=== PATIENT | female | born 1945 | race Caucasian/White ===

== ENCOUNTER 2017-12-07 14:20 | Observation (INO) | payer MEDICARE, BC ==
[2017-12-07 15:23] LABS: Troponin I 0.012 ng/mL (< 0.028)
[2017-12-07] MEDS ORDERED: Ondansetron ODT 4 MG TAB ONE (15:50)
[2017-12-07 18:07] LABS: Troponin I 0.014 ng/mL (< 0.028)
[2017-12-07 19:36] VITALS: BMI 36.8
[2017-12-07] MEDS ORDERED: Acetaminophen 650 MG Suppository PR PRN (20:46)
[2017-12-07] MEDS ORDERED: Bisacodyl 5 MG TAB PO PRN (20:46)
[2017-12-07] MEDS ORDERED: Ondansetron ODT 4 MG TAB PO PRN (20:46)
[2017-12-07] MEDS ORDERED: Ondansetron HCl/PF 4 MG/2 ML Vial IVP PRN (20:46)
[2017-12-07 20:56] LABS: Troponin I Less than 0.010 ng/mL (< 0.028)
[2017-12-07] MEDS: Apixaban 5 MG TAB PO SCH (21:14)
[2017-12-07] MEDS: Famotidine 20 MG TAB PO SCH (21:14)
[2017-12-07] MEDS: Docusate 100 MG CAP PO SCH (21:14)
[2017-12-07] MEDS: Propafenone HCl 150 MG TAB PO SCH (21:15)
[2017-12-07] MEDS: Calcium Carbonate 500 MG ChewTAB PO PRN (21:16)
[2017-12-07] MEDS ORDERED: Rosuvastatin 10 MG TAB PO SCH (21:30)
--- NOTE | 2017-12-08 04:49 | HP ---
PRIMARY CARE PHYSICIAN: Dr. Barriga. CHIEF COMPLAINT: Chest pain. HISTORY OF PRESENT ILLNESS: This is a 72-year-old white female with a known history of coronary lorna ry disease and previous atrial fibrillation, sick sinus, now with pacemaker, on anticoagulation. She reports that she has seen Dr. Carter as an outpatient and has been told that she probably is going to need a catheterization at some point last one was 3 years ago. She has never had any stents or a CABG done. She does intermittently have some chest pain, which is usually mild. 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 When she got there thi s morning, got out of the truck to go into her work, she started feeling a little nauseous and having a little bit of chest pain. While she was in a meeting there, she developed severe chest pain, subs ternal, squeezing in nature and associated with nausea and was told she looked ashen by her colleague . Her blood pressure was also elevated in the 170s to 180s, so she called an ambulance. She did hav e some minimal vomiting in the ambulance, but had not really eaten much take as of the nausea anyway and the pain came and went, was improved some with morphine, but still fluctuating and eventually now settled down. She did not have any more chest pain at this time. The patient was seen in [facility] Emergency Room, cardiac markers negative x3 and just a paced rhythm on her EKG without any eviden ce of ST segment elevation, so she was transferred over here for observation and Cardiology consultat [facility]. PAST MEDICAL HISTORY: 1. Hypothyroidism. 2. Coronary artery disease with a 1-vessel block at 60% and 3 vessels at 20%, last done that about 3 -3.5 years ago. 3. Diabetes mellitus, type 2, resolved after she had a gastric sleeve placed, now with intermittent hypoglycemia from a dumping syndrome. 4. Dyslipidemia. 5. Hypertension. 6. Hypothyroidism. PAST SURGICAL HISTORY: 1. Bilateral carpal tunnel surgery. 2. Cholecystectomy. 3. section. 4. Hernia repair. 5. Right shoulder repair. 6. Tonsillectomy. 7. Gastric sleeve surgery. 8. Pacemaker placed on last year. PAST PSYCHIATRIC HISTORY: Depression. SOCIAL HISTORY: No tobacco, alcohol, or illicit drug use. 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 FAMILY HISTORY: Significant for myocardial infarctions in both her parents at young ages. ALLERGIES: 1. KEFLEX. 2. CIPRO. 3. CODEINE. 4. PENICILLIN. 5. TETANUS VACCINE. CURRENT MEDICATIONS: 1. Eliquis 5 mg twice a day. 2. Cartia XT 180 mg daily. 3. Synthroid 125 mcg daily. 4. Rythmol 150 mg 3 times a day. 5. Crestor 10 mg daily. 6. Sertraline 50 mg at night. 7. Diovan 160 mg daily. REVIEW OF SYSTEMS: Constitutional: No fevers, no chills. Eyes: No double vision or blurred vision . ENT: No congestion, drainage or sore throat. Cardiovascular: See HPI. Pulmonary: She has had a little bit of coughing that is nonproductive over the last day and had some wheezing this morning w ith the nausea. No shortness of breath. Gastrointestinal: See HPI. No abdominal pain, no diarrhea or constipation. Genitourinary: No dysuria or hematuria. Musculoskeletal: No muscle aches or nico nt pains. Skin: No rashes or lesions noted. Neurologic: No numbness, tingling or focal weakness. Psychiatric: She has had some depression and stress from her job, working 12 hour shifts, 6 days a week. PHYSICAL EXAMINATION: VITAL SIGNS: Blood pressure 165/79, pulse 60, respirations 12, O2 sat 94% on room air, temperature 9 7.9. GENERAL: This is a well-developed, obese white female, in no acute distress. HEENT: Pupils are equal, round, and reactive to light. Oropharynx is clear without lesions, erythem a or exudate. NECK: Supple, no lymphadenopathy, no thyroid nodules or enlargement, no JVD. HEART: Regular rate and rhythm, no murmurs, rubs or gallops. LUNGS: Clear to auscultation bilaterally, no wheezes, crackles or rhonchi. ABDOMEN: Soft, nontender to palpation, normoactive bowel sounds, no hepatosplenomegaly or other mass es. EXTREMITIES: No clubbing, cyanosis or edema. SKIN: No rashes or lesions. NEUROLOGIC: Intact strength in all extremities and no facial droop. LABORATORY DATA AND IMAGING: CBC within normal limits. Coagulation profile with an INR of 1.4. Com plete metabolic panel within normal limits. Cardiac marker set negative x3. Brain natriuretic pepti de 135, which is up from when it was checked 4 years ago at 54. Chest x-ray: I did review the chest x-ray done in the emergency room along with the radiologist's report, it does show some cardiomegaly with stable from previous, but no acute findings, no infiltrates, no evidence of congestive failure. EKG: I did review the EKG done in the emergency room, it does show a paced rhythm without any evid ence of ST segment changes. ASSESSMENT AND PLAN: 1. Chest pain. The patient has known coronary artery disease, no evidence of acute myocardial infar ction at this time with negative troponins and her chest pain is improved, suspicious for angina. We will observe the patient on telemetry overnight and then we will consult Dr. Carter in the morning . We will make patient n.p.o. after midnight in case they decide to cath her tomorrow. 2. Known coronary artery disease. We will continue home medications. 3. History of atrial fibrillation. We will continue antiarrhythmics and anticoagulants. 4. Hypoglycemic episodes. We will check blood sugars q.a.c. and at bedtime and especially when she is n.p.o. tomorrow. 5. Gastrointestinal prophylaxis. Put the patient on Pepcid twice a day. 6. Deep venous thrombosis prophylaxis. We will continue patient's Xarelto. 7. Code status. I did discuss with the patient. She is a FULL CODE. Should she be incapacitated, her would be her medical decision maker, his name is Reji Ang.
[2017-12-08] MEDS: Levothyroxine Sodium 125 MCG TAB PO SCH (05:07)
[2017-12-08 06:06] LABS: #Eosinphils 0.1 thou/uL (0.0-0.7); #Lymphocytes 1.3 thou/uL (1.20-3.40); #Monocytes 0.6 thou/uL (0.11-0.59); #Neutrophils 3.5 thou/uL (1.40-6.50); %Basophils 0.5 % (0.0-1.0); %Eosinophils 1.7 % (0.0-10.0); %Lymphocytes 23.4 % (21.0-51.0); %Neutrophils 63.4 % (42.0-75.0); Hemoglobin 10.6 g/dL (12.0-16.0); Mean Corpuscular HGB CONC 31.7 g/dL (32.0-36.0); Mean Corpuscular Hemoglobin 28.4 pg (27.0-31.0); Mean Corpuscular Volume 89.6 fL (78.0-98.0); Mean Platelet Volume 8.1 fL (7.4-10.4); Platelet Count 170 thou/uL (130-400); RBC Distribution Width 12.4 % (11.5-14.5); Red Blood Cell (RBC) Count 3.74 mill/uL (4.20-5.40); White Blood Cell (WBC) Count 5.6 thou/uL (4.8-10.8)
[2017-12-08 06:21] LABS: Anion Gap 11 mmol/L (10-20); BUN (Urea Nitrogen) 11 mg/dL (9.8-20.1); Calc. Creatinine Clearance 120 mL/min (70-130); Carbon Dioxide 28 mmol/L (23-31); Chloride 108 mmol/L (98-107); Estimated GFR-MDRD Greater than 90; Glucose 96 mg/dL (80-115); Potassium 3.6 mmol/L (3.5-5.1); Sodium 143 mmol/L (136-145)
[2017-12-08] MEDS: Famotidine 20 MG TAB PO SCH ×2 (08:00→20:28)
[2017-12-08] MEDS: Propafenone HCl 150 MG TAB PO SCH ×3 (08:00→20:28)
[2017-12-08] MEDS: Acetaminophen 325 MG TAB PO PRN ×2 (08:00→13:30)
[2017-12-08] MEDS: Docusate 100 MG CAP PO SCH ×2 (08:00→20:28)
[2017-12-08] MEDS: Apixaban 5 MG TAB PO SCH ×2 (08:00→20:28)
[2017-12-08] MEDS: Valsartan 80 MG TAB PO SCH (08:00)
[2017-12-08] MEDS ORDERED: Rosuvastatin 10 MG TAB PO SCH ×2 (09:00→21:00)
[2017-12-08 10:59] LABS: Hemoglobin 10.4 g/dL (12.0-16.0); Platelet Count 161 thou/uL (130-400)
[2017-12-08 11:21] LABS: Calc. Creatinine Clearance 120 mL/min (70-130); Estimated GFR-MDRD Greater than 90
--- NOTE | 2017-12-08 16:20 | PDOC.PN ---
- Subjective Encounter Start Date: 12/08/17 Encounter Start Time: 16:19 Subjective: feels well but had one more episode of chest tightness this morning -: a/w nausea -: cough & left shoulder pain on and off for few months w exertion - Objective Resuscitation Status: Resuscitation Status FULL:Full Resuscitation MAR Reviewed: Yes Vital Signs & Weight: Vital Signs (12 hours) Temp Pulse Resp BP Pulse Ox 12/08/17 15:38 98.5 F 60 16 158/74 H 97 12/08/17 11:45 98.7 F 62 20 157/70 H 97 12/08/17 07:45 98.7 F 62 20 12/08/17 07:41 98.3 F 69 20 156/75 H 98 Weight Weight 188 lb 14.4 oz I&O: 12/07/17 12/08/17 12/09/17 06:59 06:59 06:59 Intake Total 360 Balance 360 Result Diagrams: 12/08/17 10:22 12/08/17 10:22 Additional Labs: Accuchecks 12/08/17 12/08/17 12/07/17 11:51 05:11 20:39 POC Glucose 81 97 119 H Laboratory Tests 12/07/17 12/07/17 12/07/17 14:49 17:32 20:25 Troponin I 0.012 0.014 Less than 0.010 Phys Exam - Physical Examination Constitutional: NAD HEENT: PERRLA, moist MMs, sclera anicteric, oral pharynx no lesions Neck: no nodes, no JVD, supple, full ROM Respiratory: no wheezing, no rales, no rhonchi, clear to auscultation bilateral Cardiovascular: RRR, no significant murmur, no rub Gastrointestinal: soft, non-tender, no distention, positive bowel sounds Musculoskeletal: no edema, pulses present Neurological: non-focal, normal sensation, moves all 4 limbs Psychiatric: normal affect, A&O x 3 Skin: no rash Dx/Plan (1) Chest pain Code(s): R07.9 - CHEST PAIN, UNSPECIFIED Status: Acute (2) Chronic atrial fibrillation Code(s): I48.2 - CHRONIC ATRIAL FIBRILLATION Status: Chronic Comment: on eliquis and Rythmol (3) HTN (hypertension) Code(s): I10 - ESSENTIAL (PRIMARY) HYPERTENSION Status: Chronic (4) Hypothyroidism Code(s): E03.9 - HYPOTHYROIDISM, UNSPECIFIED Status: Chronic (5) CAD (coronary artery disease) Code(s): I25.10 - ATHSCL HEART DISEASE OF [place] CORONARY ARTERY W/O ANG PCTRS Status: Chronic (6) Diabetes mellitus Code(s): E11.9 - TYPE 2 DIABETES MELLITUS WITHOUT COMPLICATIONS Status: Chronic - Plan out of bed/ambulate, DVT proph w/SCDs gerry angina. H/o 60% stenosis RCA in 2013.gerry will need Cath -: ECHo pending -: add low dose nitrates for angina as Bp also high -: home meds as below. follow cardiology recs -: Hemodynamically stable.check BNP * . Review of Systems - Review of Systems Constitutional: negative: fever, chills, sweats, weakness, malaise, other Respiratory: negative: Cough, Dry, Shortness of Breath, Hemoptysis, SOB with Excertion, Pleuritic Pain, Sputum, Wheezing Cardiovascular: chest pain. negative: palpitations, orthopnea, paroxysmal nocturnal dyspnea, edema, light headedness, other Gastrointestinal: negative: Nausea, Vomiting, Abdominal Pain, Diarrhea, Constipation, Melena, Hematochezia, Other Genitourinary: negative: Dysuria, Frequency, Incontinence, Hematuria, Retention , Other Musculoskeletal: negative: Neck Pain, Shoulder Pain, Arm Pain, Back Pain, Hand Pain, Leg Pain, Foot Pain, Other Skin: negative: Rash, Lesions, Zheng, Bruising, Other Neurological: negative: Weakness, Numbness, Incoordination, Change in Speech, Confusion, Seizures, Other - Medications/Allergies Allergies/Adverse Reactions: Allergies Allergy/AdvReac Type Severity Reaction Status Date / Time cephalexin monohydrate Allergy RED Verified 07/20/13 10:35 [From Keflex] ciprofloxacin [From Cipro] Allergy Hives Verified 03/08/16 01:22 ciprofloxacin HCl Allergy Verified 03/08/16 01:22 [From Cipro] codeine Allergy Nausea Verified 07/20/13 10:35 Penicillins Allergy Hives Verified 07/20/13 10:35 Tetanus Vaccines and Toxoid Allergy SWELLING Verified 07/20/13 10:35 [Tetanus Vaccines & Toxoid] OF ARM Medications: Current Medications Acetaminophen (Tylenol) 650 mg PO Q4H PRN PRN Reason: Headache/Fever or Pain Last Admin: 06/21/18 13:30 Dose: 650 mg Acetaminophen (Tylenol) 650 mg DE Q4H PRN PRN Reason: Headache/Fever or Pain Apixaban (Eliquis) 5 mg PO BID [facility] Last Admin: 12/08/17 08:00 Dose: 5 mg Bisacodyl (Dulcolax) 10 mg PO DAILYPRN PRN PRN Reason: Constipation Calcium Carbonate (Tums) 500 mg PO Q4H PRN PRN Reason: INDIGESTION Last Admin: 12/07/17 21:16 Dose: 500 mg Diltiazem HCl (Cardizem Cd) 180 mg PO DAILY [facility] Last Admin: 12/08/17 07:59 Dose: 180 mg Docusate Sodium (Colace) 100 mg PO BID [facility] Last Admin: 12/08/17 08:00 Dose: 100 mg Famotidine (Pepcid) 20 mg PO BID [facility] Last Admin: 12/08/17 08:00 Dose: 20 mg Levothyroxine Sodium (Synthroid) 125 mcg PO 0600 [facility] Last Admin: 12/08/17 05:07 Dose: 125 mcg Ondansetron HCl (Zofran Odt) 4 mg PO Q6H PRN PRN Reason: Nausea/Vomiting Last Admin: 12/07/17 21:16 Dose: 4 mg Ondansetron HCl (Zofran) 4 mg IVP Q6H PRN PRN Reason: Nausea/Vomiting Propafenone HCl (Rythmol) 150 mg PO TID [facility] Last Admin: 12/08/17 15:52 Dose: 150 mg Rosuvastatin Calcium (Crestor) 10 mg PO [facility] Sertraline HCl (Zoloft) 50 mg PO HS [facility] Last Admin: 12/07/17 21:15 Dose: 50 mg Valsartan (Diovan) 160 mg PO DAILY [facility] Last Admin: 12/08/17 08:00 Dose: 160 mg
[2017-12-08] MEDS ORDERED: Isosorbide Mononitrate 20 MG TAB PO SCH (16:45)
[2017-12-08] MEDS: Calcium Carbonate 500 MG ChewTAB PO PRN (18:05)
--- NOTE | 2017-12-09 04:59 | CON ---
DATE OF CONSULTATION: 12/08/2017 HISTORY OF PRESENT ILLNESS: Karlee Ang is a 72-year-old white female that initially evaluated in 04/2014. At that time, she was referred for preoperative evaluation for gastric sleeve surgery by Dr. Amaya. She complained of some right chest pressure that would occur with pulling a wagon with her right arm. There was tender to touch. She underwent Lexiscan Cardiolite testing, which revealed a proximal to distal anterior and apical area of ischemia. She underwent cardiac catheterization which revealed normal left ventricular function with ejection fraction of 55%-60%. The proximal LAD was calcified. There was a 20% mid to distal LAD, 20% first diagonal and 20% proximal circumflex. Right coronary artery had a 60% proximal stenosis and a 20 % mid stenosis. It was felt best to continue to treat her medically. She underwent gastric sleeve surgery without incident. She has continued to be followed in the office since that time. She walked up to 1 mile per day without problem. She was admitted in 02/2016 with feeling of very rapid heartbeat. She also had chest pressure with that. Chest pressure lasted 18 hours continuously and seemed to stop when she converted to sinus rhythm. Despite 18 hours of continuous chest pain, her cardiac enzymes were unremarkable. When she converted to sinus rhythm, she was asymptomatic. She was given intravenous metoprolol, digoxin 0.125. She also was placed on Lovenox 90 mg b.i.d. Echocardiogram was technically difficult. Ejection fraction was 55%-60%, aortic valvular fibrosis, moderate mitral regurgitation, mild to moderate aortic insufficiency and mild tricuspid regurgitation. She was placed on Eliquis 5 mg b.i.d. and Multaq 400 b.i.d. She could not afford the Multaq and was eventually switched to propafenone 150 t.i.d. Since then she has not had any atrial fibrillation on interrogation of her pacemaker. She states that she has been under a lot of stress recently. 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 Blood pressure was 170s to 180s and ambulance was called. Since that pain started 28 hours ago, she states it is still present and has never resolved. Cardiac enzymes have been unremarkable. PAST MEDICAL HISTORY: Hypertension, diabetes (which apparently resolved after gastric sleeve surgery), hypercholesterolemia, hypothyroidism, coronary artery disease. OPERATIONS: Bilateral carpal tunnel surgery, cholecystectomy, gastric sleeve, C -section, hernia repair, right shoulder repair, tonsillectomy, I&D of leg cellulitis, lithotripsy and thyroidectomy, and pacemaker placement, pacemaker placement in [place]. MEDICATIONS: Eliquis 5 mg b.i.d., Cartia 120 mg daily, Synthroid 125 mcg daily , propafenone 150 t.i.d., Crestor 10 daily, sertraline 50 daily, Diovan 160 daily. ALLERGIES: KEFLEX, CIPRO, CODEINE, PENICILLIN, TETANUS and possible cough with [employer]. SOCIAL HISTORY: She does not smoke or drink. FAMILY HISTORY: Significant for myocardial infarction. REVIEW OF SYSTEMS: Twelve-point review of systems otherwise unremarkable. PHYSICAL EXAMINATION: VITAL SIGNS: Blood pressure 123/58, pulse of 60. HEENT: PERRL. NECK: Supple. CHEST: Clear. CARDIAC: S1, S2 normal, without any S3, S4. There is a 2/6 systolic ejection murmur. Carotid upstrokes normal without bruits. ABDOMEN: Normal bowel sounds, without tenderness, organomegaly. EXTREMITIES: Revealed no edema. MUSCULOSKELETAL: Revealed palpable chest wall tenderness that reproduces her pain. LABORATORY DATA: EKG reveals atrial sensing and ventricular pacing. Cardiac enzymes are totally normal. Hemoglobin 10.4, hematocrit 31.5. INR 1.4. Sodium 143, potassium 3.6, chloride 108, carbon dioxide 28, BUN 11, creatinine 0.59. BNP 157.8. IMPRESSION: 1. Probable chest wall pain with palpable tenderness, pain lasting 28 hours and negative cardiac enzymes. 2. History of coronary artery disease with 60% right coronary artery lesion. 3. Status post pacemaker placement. 4. History of atrial fibrillation, currently on Eliquis and propafenone. 5. Hypertension. 6. Hypercholesterolemia. 7. Diabetes, diet controlled. 8. Hypothyroidism. 9. Status post gastric sleeve. PLAN: Ms. Ang will undergo Lexiscan Cardiolite testing to further reevaluate her cardiac status. If this is normal, then she may be discharged. [facility]
[2017-12-09] MEDS: Levothyroxine Sodium 125 MCG TAB PO SCH (05:18)
[2017-12-09] MEDS ORDERED: Isosorbide Mononitrate 20 MG TAB PO SCH (09:00)
[2017-12-09] MEDS: Famotidine 20 MG TAB PO SCH (11:58)
[2017-12-09] MEDS: Valsartan 80 MG TAB PO SCH (11:58)
[2017-12-09] MEDS: Apixaban 5 MG TAB PO SCH (11:59)
[2017-12-09] MEDS: Docusate 100 MG CAP PO SCH (11:59)
[2017-12-09] MEDS: Propafenone HCl 150 MG TAB PO SCH ×2 (11:59→16:22)
[2017-12-09] MEDS ORDERED: Regadenoson 0.4 MG/5 ML SYRINGE ONE (12:11)
--- NOTE | 2017-12-09 12:28 | NM ---
MYOCARDIAL PERFUSION EVALUATION: History: Chest pain. Radiopharmaceutical: 370 mCi Technetium 99M Sestamibi IV with stress and 9 mCi Technetium 99M Sestami bi with rest. FINDINGS: There is a mild sized region of mild to moderate reduced activity involving the basal apical inferior wall and septum seen predominately on the rest images likely related to diaphragmatic attenuation. T here is left ventricular dilatation seen on both the rest and stress and images. There is normal wall motion and thickening with an LVF of 60%. IMPRESSION: Probably normal myocardial perfusion evaluation. 2. No definite scintigraphic evidence of reversible myocardial ischemia. 3. Moderate sized right of mildly reduced activity involving the base of the apical inferior wall and apex, seen predominately on the rest images likely related to soft tissue attenuation. 4. Left ventricular dilatation with an LVEF estimated at 60%. POS: JUAN DANIEL
--- NOTE | 2017-12-09 14:39 | PDOC.PN ---
- Subjective Encounter Start Date: 12/09/17 Encounter Start Time: 14:36 Subjective: feels better. no more episodes of chest pain.no SOB - Objective Resuscitation Status: Resuscitation Status FULL:Full Resuscitation MAR Reviewed: Yes Vital Signs & Weight: Vital Signs (12 hours) Temp Pulse Resp BP BP Pulse Ox 12/09/17 11:57 98.4 F 65 16 189/80 H 97 12/09/17 08:00 98.1 F 65 18 12/09/17 07:54 98.1 F 65 18 128/64 96 12/09/17 05:18 97.8 F 60 16 146/68 H 97 Weight Weight 188 lb 14.4 oz I&O: 12/08/17 12/09/17 12/10/17 06:59 06:59 06:59 Intake Total 360 1320 Balance 360 1320 Result Diagrams: 12/08/17 10:22 12/08/17 10:22 Additional Labs: Accuchecks 12/09/17 12/09/17 12/08/17 12:03 05:22 20:34 POC Glucose 93 92 108 12/08/17 16:48 POC Glucose 80 Laboratory Tests 12/08/17 16:43 B-Natriuretic Peptide 157.8 H labs reviewed Radiology Reviewed by me: Yes (NM stress test-no reversible ischemia.ECHO- Diastolic dysfunction) EKG Reviewed by me: Yes Phys Exam - Physical Examination HEENT: PERRLA, moist MMs, sclera anicteric, oral pharynx no lesions Neck: no nodes, no JVD, supple, full ROM Respiratory: no wheezing, no rales, no rhonchi, clear to auscultation bilateral Cardiovascular: RRR, no significant murmur, no rub Gastrointestinal: soft, non-tender, no distention, positive bowel sounds Musculoskeletal: no edema, pulses present Neurological: non-focal, normal sensation, moves all 4 limbs Psychiatric: normal affect, A&O x 3 Skin: no rash Dx/Plan (1) Chest pain Code(s): R07.9 - CHEST PAIN, UNSPECIFIED Status: Resolved (2) Chronic atrial fibrillation Code(s): I48.2 - CHRONIC ATRIAL FIBRILLATION Status: Chronic Comment: on eliquis and Rythmol (3) HTN (hypertension) Code(s): I10 - ESSENTIAL (PRIMARY) HYPERTENSION Status: Chronic (4) Hypothyroidism Code(s): E03.9 - HYPOTHYROIDISM, UNSPECIFIED Status: Chronic (5) CAD (coronary artery disease) Code(s): I25.10 - ATHSCL HEART DISEASE OF [place] CORONARY ARTERY W/O ANG PCTRS Status: Chronic (6) Diabetes mellitus Code(s): E11.9 - TYPE 2 DIABETES MELLITUS WITHOUT COMPLICATIONS Status: Chronic (7) Moderate aortic regurgitation Code(s): I35.1 - NONRHEUMATIC AORTIC (VALVE) INSUFFICIENCY Status: Chronic (8) Moderate tricuspid regurgitation Code(s): I07.1 - RHEUMATIC TRICUSPID INSUFFICIENCY Status: Chronic (9) Diastolic dysfunction with chronic heart failure Code(s): I50.32 - CHRONIC DIASTOLIC (CONGESTIVE) HEART FAILURE Status: Chronic Comment: no acute exacerbation.per ECHO - Plan DVT proph w/SCDs cont home meds.BP lower side. -: Imdur added yesterday for possible angina.may need to reduce Valsartan -: no evidence of ACS. -: will need Cath in near future.f/u w cardiology -: Drake VERAS later today if cleared by cardiology * . Review of Systems - Review of Systems Constitutional: negative: fever, chills, sweats, weakness, malaise, other ENT: negative: Ear Pain, Ear Discharge, Nose Pain, Nose Discharge, Nose Congestion, Mouth Pain, Mouth Swelling, Throat Pain, Throat Swelling, Other Respiratory: negative: Cough, Dry, Shortness of Breath, Hemoptysis, SOB with Excertion, Pleuritic Pain, Sputum, Wheezing Cardiovascular: negative: chest pain, palpitations, orthopnea, paroxysmal nocturnal dyspnea, edema, light headedness, other Gastrointestinal: negative: Nausea, Vomiting, Abdominal Pain, Diarrhea, Constipation, Melena, Hematochezia, Other Genitourinary: negative: Dysuria, Frequency, Incontinence, Hematuria, Retention , Other Musculoskeletal: negative: Neck Pain, Shoulder Pain, Arm Pain, Back Pain, Hand Pain, Leg Pain, Foot Pain, Other Skin: negative: Rash, Lesions, Zheng, Bruising, Other Neurological: negative: Weakness, Numbness, Incoordination, Change in Speech, Confusion, Seizures, Other - Medications/Allergies Allergies/Adverse Reactions: Allergies Allergy/AdvReac Type Severity Reaction Status Date / Time cephalexin monohydrate Allergy RED Verified 07/20/13 10:35 [From Keflex] ciprofloxacin [From Cipro] Allergy Hives Verified 03/08/16 01:22 ciprofloxacin HCl Allergy Verified 03/08/16 01:22 [From Cipro] codeine Allergy Nausea Verified 07/20/13 10:35 Penicillins Allergy Hives Verified 07/20/13 10:35 Tetanus Vaccines and Toxoid Allergy SWELLING Verified 07/20/13 10:35 [Tetanus Vaccines & Toxoid] OF ARM Medications: Current Medications Acetaminophen (Tylenol) 650 mg PO Q4H PRN PRN Reason: Headache/Fever or Pain Last Admin: 12/08/17 13:30 Dose: 650 mg Acetaminophen (Tylenol) 650 mg ID Q4H PRN PRN Reason: Headache/Fever or Pain Apixaban (Eliquis) 5 mg PO BID [facility] Last Admin: 12/09/17 11:59 Dose: 5 mg Bisacodyl (Dulcolax) 10 mg PO DAILYPRN PRN PRN Reason: Constipation Calcium Carbonate (Tums) 500 mg PO Q4H PRN PRN Reason: INDIGESTION Last Admin: 12/08/17 18:05 Dose: 500 mg Diltiazem HCl (Cardizem Cd) 180 mg PO DAILY [facility] Last Admin: 12/09/17 11:58 Dose: 180 mg Docusate Sodium (Colace) 100 mg PO BID [facility] Last Admin: 12/09/17 11:59 Dose: 100 mg Famotidine (Pepcid) 20 mg PO BID [facility] Last Admin: 12/09/17 11:58 Dose: 20 mg Isosorbide Mononitrate (Ismo) 5 mg PO BID [facility] Last Admin: 12/09/17 11:59 Dose: 5 mg Levothyroxine Sodium (Synthroid) 125 mcg PO 0600 [facility] Last Admin: 12/09/17 05:18 Dose: 125 mcg Ondansetron HCl (Zofran Odt) 4 mg PO Q6H PRN PRN Reason: Nausea/Vomiting Last Admin: 12/07/17 21:16 Dose: 4 mg Ondansetron HCl (Zofran) 4 mg IVP Q6H PRN PRN Reason: Nausea/Vomiting Propafenone HCl (Rythmol) 150 mg PO TID [facility] Last Admin: 12/09/17 11:59 Dose: 150 mg Rosuvastatin Calcium (Crestor) 10 mg PO HS [facility] Last Admin: 12/08/17 20:28 Dose: 10 mg Sertraline HCl (Zoloft) 50 mg PO HS [facility] Last Admin: 12/08/17 20:29 Dose: 50 mg Valsartan (Diovan) 160 mg PO DAILY [facility] Last Admin: 12/09/17 11:58 Dose: 160 mg
[2017-12-09 15:26] VITALS: BP 136/61; TEMP 98.9
--- NOTE | 2017-12-10 01:06 | DIS ---
DATE OF ADMISSION: 12/07/2017 DATE OF DISCHARGE: 12/09/2017 CONDITION AT THE TIME OF DISCHARGE: Stable and improved. DISCHARGE DIAGNOSES: 1. Chest pain, noncardiac, likely stress related. 2. History of coronary artery disease with 60% right coronary artery lesion. 3. History of atrial fibrillation on chronic anticoagulation. 4. Status post pacemaker placement in the past. 5. Hypertension. 6. Dyslipidemia. 7. Diet controlled diabetes. 8. Hypothyroidism. 9. History of gastric sleeve operation. DISCHARGE MEDICATIONS: Remain the same as admission medication. No changes were made. Please see a dmission H&P for details. PROCEDURES DONE IN THE HOSPITAL: 1. Transthoracic echocardiogram, which shows diastolic dysfunction, EF 55%-60%, moderate aortic and mitral regurgitation. 2. Nuclear medicine stress test, which is negative for any reversible ischemia. EF is estimated at 60%. IN HOUSE CONSULTATION: Cardiology, Dr. Carter. PRIMARY CARE PHYSICIAN: Fernando Barriga M.D. HISTORY OF PRESENTING ILLNESS: Ms. Ang is a pleasant 72-year-old female with known history of 6 0% RCA lesion and other multiple comorbidities as outlined above, presented to the emergency room wit h complaints of chest pain. She noted that her blood pressure was also elevated. She was brought in to [facility] where EKG showed paced rhythm and cardiac markers were negative x3. S he was admitted for further risk stratification. Please see admission history and physical for furth er detail. She was hemodynamically stable upon presentation. HOSPITAL COURSE: The patient's cardiac enzymes were trended and remained negative. Cardiology was c onsulted with regards to her history of 60% lesion in the RCA 3 years ago. She underwent transthorac ic echocardiogram and Dr. Carter saw the patient. Echo was showing only some mild diastolic dysfun ction and the patient did not have any acute exacerbation of the same. Dr. Carter recommended gett ing a stress test for her, which was also done this morning and was normal. She was cleared for disc harge from Cardiology this morning with the idea to follow up as an outpatient with outpatient cardia c catheterization in the near future. She was seen and examined prior to discharge. PHYSICAL EXAMINATION: VITAL SIGNS: Her most recent vital signs, temperature 98.9, pulse of 70, respirations 16, saturating 96% on room air, blood pressure 136/61. No acute distress, awake, alert, oriented x3. CHEST: Clear to auscultation without any wheezing, rales or rhonchi. Rhythm is regular without any murmur, rubs or gallops. Discharge plan was discussed with the patient and she verbalized understanding.
== END 2017-12-09 17:24 | disposition home or self-care (01) ==
LOC: ERS 14:20 → 2SW 19:06 → 2NO 12-09 09:49 → 2SW 12-09 09:52
PROVIDERS: ADMIT Emergency Medicine; ATTEND Emergency Medicine
DX: R07.89 Other chest pain (principal); I11.0 Hypertensive heart disease with heart failure; I50.32 Chronic diastolic (congestive) heart failure; I48.2 Chronic atrial fibrillation; I08.2 Rheumatic disorders of both aortic and tricuspid valves; E78.5 Hyperlipidemia, unspecified; E11.9 Type 2 diabetes mellitus without complications; I25.10 Atherosclerotic heart disease of native coronary artery without angina pectoris; E03.9 Hypothyroidism, unspecified; E78.00 Pure hypercholesterolemia, unspecified; Z79.01 Long term (current) use of anticoagulants; Z88.0 Allergy status to penicillin; Z88.1 Allergy status to other antibiotic agents; Z88.5 Allergy status to narcotic agent; Z88.8 Allergy status to other drugs, medicaments and biological substances
CPT/HCPCS: 78452; 80048; 82565; 82962 ×3; 83880; 84484; 85014; 85018; 85025; 85049; 93005; 93017; 93306; 97139 ×2; 99285; A9500; G0378; 36415; 36416; J2785; Q0162

== ENCOUNTER 2018-04-13 08:33 | Outpatient (CLI) | payer MEDICARE, BC ==
[2018-04-13 10:31] LABS: #Basophils 0.1 thou/uL (0.0-0.2); #Eosinphils 0.1 thou/uL (0.0-0.7); #Lymphocytes 1.9 thou/uL (1.20-3.40); #Monocytes 1.2 thou/uL (0.11-0.59); #Neutrophils 7.1 thou/uL (1.40-6.50); %Basophils 0.8 % (0.0-1.0); %Eosinophils 0.7 % (0.0-10.0); %Monocytes 11.7 % (0.0-10.0); %Neutrophils 68.8 % (42.0-75.0); Bilirubin Negative (Negative); Blood, Urine Negative (Negative); Clarity CLEAR (Clear); Glucose, Urine (Dipstick) Negative (Negative); Hemoglobin 12.4 g/dL (12.0-16.0); Leukocyte Trace (Negative); Mean Corpuscular HGB CONC 31.6 g/dL (32.0-36.0); Mean Corpuscular Hemoglobin 28.1 pg (27.0-31.0); Mean Corpuscular Volume 88.7 fL (78.0-98.0); Mean Platelet Volume 8.3 fL (7.4-10.4); Nitrite Negative (Negative); Platelet Count 193 thou/uL (130-400); Protein, Urine (Dipstick) Negative (Neg-Trace); RBC Distribution Width 13.3 % (11.5-14.5); Red Blood Cell (RBC) Count 4.42 mill/uL (4.20-5.40); Specific Gravity, Urine 1.019 (1.002-1.036); White Blood Cell (WBC) Count 10.3 thou/uL (4.8-10.8)
[2018-04-13 10:35] LABS: INR-International Normal Ratio 1.3; PTT 29.6 SEC (22.9-36.1); Prothrombin Time 16.6 SEC (12.0-14.7)
[2018-04-13 10:43] LABS: Hyaline Casts/LPF 0-3 HYALINE CAST LPF (0-3 Hyaline); Pathc Cast-AUWi Flag 0.14 (0-2.49); Squamous Epithelial 0-3 HPF (0-3); WBC/HPF None Seen HPF (0-3)
[2018-04-13 10:53] LABS: Anion Gap 10 mmol/L (10-20); BUN (Urea Nitrogen) 10 mg/dL (9.8-20.1); Calc. Creatinine Clearance 0 mL/min (70-130); Calcium 9.2 mg/dL (7.8-10.44); Carbon Dioxide 26 mmol/L (23-31); Chloride 109 mmol/L (98-107); Estimated GFR-MDRD 90; Glucose 96 mg/dL (83-110); Potassium 3.8 mmol/L (3.5-5.1); Sodium 141 mmol/L (136-145)
[2018-04-13 10:54] LABS: Bacteria/HPF Rare-Few HPF (None Seen); RBC/HPF 0-3 HPF (0-3)
== END 2018-04-13 08:34 | disposition home or self-care (01) ==
LOC: LABBT 08:33
PROVIDERS: ATTEND Orthopaedic Surgery
DX: Z01.818 Encounter for other preprocedural examination (principal); M17.12 Unilateral primary osteoarthritis, left knee
CPT/HCPCS: 80048; 81001; 85025; 85610; 85730; 87081; 93005; 93010

== ENCOUNTER 2018-04-18 09:05 | Outpatient (CLI) | payer MEDICARE, BC | END 2018-04-18 09:06 | disposition home or self-care (01) | LOC: LABBT 09:05 | PROVIDERS: ATTEND Orthopaedic Surgery | DX: Z01.812 Encounter for preprocedural laboratory examination (principal); M17.12 Unilateral primary osteoarthritis, left knee | CPT/HCPCS: 86850; 86900; 86901 ==

== ENCOUNTER 2018-04-24 05:49 | Inpatient (IN) | payer MEDICARE, BC ==
[2018-04-24] MEDS ORDERED: Sodium Chloride 0.9% 100 ML ONE (06:07)
[2018-04-24] MEDS ORDERED: Clindamycin/D5W 600 mg/50 ml Premix Bag ONE (06:07)
[2018-04-24] MEDS ORDERED: Vancomycin HCl 1.5 GM in Sodium Chloride 0.9% 250 ML 300 ML IVPB SCH ×2 (06:15→18:00)
[2018-04-24] MEDS ORDERED: Midazolam HCl 2 mg/2 ml Vial ONE (06:26)
[2018-04-24] MEDS ORDERED: Fentanyl 100 MCG/2 ML VIAL ONE ×3 (06:26→10:29)
[2018-04-24] MEDS ORDERED: Bupivacaine PF 0.5% 30 ML VIAL ONE (06:47)
[2018-04-24] MEDS ORDERED: Scopolamine 1.5 mg/72 hour Patch ONE (06:51)
[2018-04-24] MEDS ORDERED: diphenhydrAMINE 25 MG CAP PO PRN (07:10)
[2018-04-24] MEDS ORDERED: HYDROcodone/Acetaminophen 10/325 mg Tablet PO PRN ×2 (07:10)
[2018-04-24] MEDS ORDERED: Fentanyl 100 MCG/2 ML VIAL SLOW IVP PRN (07:10)
[2018-04-24] MEDS ORDERED: Zolpidem Tartrate 5 MG TAB PO PRN ×2 (07:10→07:52)
[2018-04-24] MEDS ORDERED: Promethazine HCl 25 MG/ML VIAL IM PRN ×3 (07:10→08:11)
[2018-04-24] MEDS ORDERED: Ondansetron PF 4 MG/2 ML Vial IVP PRN ×2 (07:10→07:52)
[2018-04-24] MEDS ORDERED: Acetaminophen 325 MG TAB PO PRN (07:10)
[2018-04-24] MEDS ORDERED: traMADol HCl 50 MG TAB PO PRN ×4 (07:10→07:52)
[2018-04-24] MEDS ORDERED: Furosemide 20 MG TAB PO PRN (07:13)
[2018-04-24] MEDS ORDERED: Tranexamic Acid 1,000 MG in Sodium Chloride 0.9% 100 ML IVPB SCH (07:15)
[2018-04-24] MEDS ORDERED: Ketorolac Tromethamine 30 MG/ML VIAL IVP PRN (07:52)
[2018-04-24] MEDS ORDERED: HYDROcodone/Acetaminophen 7.5/325 mg Tablet PO PRN (07:54)
[2018-04-24] MEDS ORDERED: Promethazine HCl 25 MG/ML VIAL SLOW IVP PRN (08:11)
[2018-04-24] MEDS ORDERED: Ondansetron HCl/PF 4 MG/2 ML Vial IVP PRN (08:11)
[2018-04-24] MEDS ORDERED: Aspirin 81 mg Enteric Coated Tablet PO SCH (09:00)
[2018-04-24] MEDS ORDERED: Glycopyrrolate 0.2 MG/ML 5 ML SYRINGE ONE (09:25)
[2018-04-24] MEDS ORDERED: PROPOFOL 200 MG/20 ML VIAL ONE (09:25)
[2018-04-24] MEDS ORDERED: Lidocaine 1% PF 5 ML VIAL ONE (09:25)
[2018-04-24] MEDS ORDERED: PHENYLEPHRINE-NS 100 MCG/ML 10 ML SYRINGE ONE (09:25)
[2018-04-24] MEDS ORDERED: Succinylcholine Chloride 20 MG/ML 10 ml SYRINGE FS ONE (09:25)
[2018-04-24] MEDS ORDERED: Ondansetron PF 4 MG/2 ML Vial ONE (09:25)
--- NOTE | 2018-04-24 09:25 | OP ---
DATE OF PROCEDURE: 04/24/2018 PREOPERATIVE DIAGNOSIS: Left knee osteoarthrosis. POSTOPERATIVE DIAGNOSIS: Left knee osteoarthrosis. PROCEDURE PERFORMED: Left total knee replacement using [employer] pinless navigation. SURGEON: Teo Soto M.D. ASSOCIATE DIRECTOR OF SALES: Tristian Wagoner PA-C BLOOD LOSS: Minimal. COMPLICATIONS: None. DISPOSITION: She went to the recovery room in stable condition. ANESTHESIA: She did have general anesthetic as well as preoperative blocks. IMPLANTS: To the left knee with a [employer] Triathlon total knee system, the femur was a size 4 crucia te retaining, left femur we used a size 3 universal tibial baseplate. We used a 3 x 9 mm CS X3 tibia l bearing and we used a 27 x 8 symmetric X3 patella. INDICATIONS: This is a 73-year-old female who has tried to go with a painful arthritic knee for many months and at this time, she has failed nonoperative treatment. She wishes to have her knee replace d. PROCEDURE IN DETAIL: After all appropriate consent forms were explained and signed, the patient was taken back to the Operating Room and at this time was given general anesthetic. Once the level of an esthesia was appropriate, a well-padded tourniquet was placed on the left leg and the leg was then pr epped and draped in standard surgical fashion. The limb was exsanguinated and tourniquet taken up to 300 mmHg. Midline incision was made with a 10 blade down through the skin and subcutaneous tissue. Bovie electrocautery was used to coagulate any brisk venous bleeding. A new blade was used to make a medial parapatellar arthrotomy. Small subperiosteal release was performed medially and excess fat pad was removed. The knee was flexed up to gain access to the femur. The femur was navigated and di stal femoral resection was made. Epicondylar access was used to align our sizing jig and this was pi nned in place. We sized our femur to be a 4 cruciate retaining 4:1 cutting block was applied and pin pina. Anterior and posterior chamfer cuts were then made. We navigated out our proximal tibia and ma de our proximal tibial resection. Spreaders were used to remove any posterior osteophytes off the ba ck of the femur as well as remaining meniscal tissue. A long alignment beata was then used to achieve correct rotation of our tibial baseplate and a size 3 was chosen. This was pinned in place. We triale d the polyethylene and a 3x9 mm CS X3 polyethylene gave us full extension and good stability througho ut range of motion. Two towel clips and a saw were used to cut our patella. Three lug nuts were dri lled and 27 x 8 symmetric X3 patella was trialed which sat nicely in the trochlear groove. We then d rilled our femur and punched our tibia. All components were removed. The knee was thoroughly irriga ajay and dried. Cement was mixed into the cement gun on the back table. Components were then placed. The knee was held out in full extension until the cement had dried. All excess bone cement was rem maria a. Multiple #2 Vicryl stitches as well as a Quill was used to close our extensor mechanism. 0 Qu ill followed by a running Monoderm was then used to close the skin. Surgicel glue was then used on t he skin. Once this had dried, soft tissue dressing was applied to the limb, tourniquet was let down, and the toes pinked up nicely. The patient was then awakened and taken to the Recovery Room in stab le condition. All counts were correct at the end of the case. The patient did receive preoperative IV antibiotics. The patient was injected with Exparel for postoperative pain relief.
[2018-04-24] MEDS ORDERED: Ketorolac Tromethamine 30 MG/ML VIAL ONE (10:50)
[2018-04-24] MEDS ORDERED: hydrALAZINE 20 MG/ML VIAL SLOW IVP PRN (12:54)
[2018-04-24] MEDS ORDERED: Sodium Chloride 0.65% Nasal 44 ML BOT EA NARE PRN (12:54)
[2018-04-24] MEDS ORDERED: Eucerin (Mineral Oil/Petrolatum,White) 30 gm Jar TOP PRN (12:54)
[2018-04-24] MEDS ORDERED: Bisacodyl 10 MG SUPP PR PRN (12:54)
[2018-04-24] MEDS ORDERED: Artificial Tears 18 DROP/0.9 ML EA EYE PRN (12:54)
[2018-04-24] MEDS ORDERED: Nitroglycerin 0.4 MG TAB (25 Tab Bottle) SL PRN (12:54)
[2018-04-24] MEDS ORDERED: Diabetic Tussin 200 MG/10 ML UDCUP PO PRN (12:54)
[2018-04-24] MEDS ORDERED: Cepastat Lozenges 1 LOZ PO PRN (12:54)
[2018-04-24] MEDS ORDERED: Loperamide HCl 2 MG CAP PO PRN (12:54)
--- NOTE | 2018-04-24 12:57 | PDOC.PN ---
- Subjective Encounter Start Date: 04/24/18 Encounter Start Time: 12:55 -: old records requested/rev Patient seen and examined. No new complaints. pt is admitted for left TKR, done without any complication consulted for medical management pt has no new problems for now, her pain is controlled she is off elliquis since - Objective Resuscitation Status: Resuscitation Status FULL:Full Resuscitation MAR Reviewed: Yes Vital Signs & Weight: Vital Signs (12 hours) Temp Pulse Resp BP Pulse Ox 04/24/18 12:15 97.4 F L 66 16 135/89 99 Weight Weight 193 lb I&O: old [employer] labs report reviewed Additional Labs: Accuchecks 04/24/18 09:17 POC Glucose 93 Radiology Reviewed by me: Yes (old radiological investigation reviewed) Phys Exam - Physical Examination Constitutional: NAD HEENT: PERRLA, moist MMs, sclera anicteric Neck: no JVD, supple Respiratory: no wheezing, no rales, no rhonchi Cardiovascular: RRR, no rub SM+ Gastrointestinal: soft, non-tender, no distention, positive bowel sounds Musculoskeletal: no edema, pulses present left knew with dressing, nerve block in place lopez+ Neurological: non-focal, normal sensation, moves all 4 limbs Lymphatic: no nodes Psychiatric: normal affect, A&O x 3 Skin: no rash, normal turgor Dx/Plan (1) Status post total left knee replacement Code(s): Z96.652 - PRESENCE OF LEFT ARTIFICIAL KNEE JOINT Status: Acute (2) CAD (coronary artery disease) Code(s): I25.10 - ATHSCL HEART DISEASE OF [place] CORONARY ARTERY W/O ANG PCTRS Status: Chronic Comment: stable without angina (3) Chronic atrial fibrillation Code(s): I48.2 - CHRONIC ATRIAL FIBRILLATION Status: Chronic Comment: Rate controlled (4) Chronic stage c diastolic heart failure Code(s): I50.32 - CHRONIC DIASTOLIC (CONGESTIVE) HEART FAILURE Status: Chronic Comment: currently euvolemic (5) Dyslipidemia Code(s): E78.5 - HYPERLIPIDEMIA, UNSPECIFIED Status: Chronic (6) GERD (gastroesophageal reflux disease) Code(s): K21.9 - GASTRO-ESOPHAGEAL REFLUX DISEASE WITHOUT ESOPHAGITIS Status: Chronic Qualifiers: Esophagitis presence: without esophagitis Qualified Code(s): K21.9 - Gastro -esophageal reflux disease without esophagitis (7) HTN (hypertension) Code(s): I10 - ESSENTIAL (PRIMARY) HYPERTENSION Status: Chronic Comment: controlled (8) Hypothyroidism Code(s): E03.9 - HYPOTHYROIDISM, UNSPECIFIED Status: Chronic Comment: stable (9) Moderate aortic regurgitation Code(s): I35.1 - NONRHEUMATIC AORTIC (VALVE) INSUFFICIENCY Status: Chronic (10) Moderate tricuspid regurgitation Code(s): I07.1 - RHEUMATIC TRICUSPID INSUFFICIENCY Status: Chronic (11) Obesity (BMI 30-39.9) Code(s): E66.9 - OBESITY, UNSPECIFIED Status: Chronic (12) H/O cardiac pacemaker Code(s): Z95.0 - PRESENCE OF CARDIAC PACEMAKER Status: Chronic (13) H/O gastric bypass Code(s): Z98.84 - BARIATRIC SURGERY STATUS Status: Chronic (14) Diabetes type 2, controlled Code(s): E11.9 - TYPE 2 DIABETES MELLITUS WITHOUT COMPLICATIONS Status: Chronic - Plan cont current plan of care, 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, PT/OT * continue aspirin for DVT prophylaxis * continue protonix for GI prophylaxis * home medication reconciled * start Elliquis when orthopedic ok after surgery, at that point DC aspirin and only resume elliquis as per her home dose * code status- Full code * medication reviewed as below * symptomatic treatment * PT/OT as per [facility] protocol * Nerve block as per anesthesia * pain control with pain meds as ordered below. Review of Systems - Medications/Allergies Allergies/Adverse Reactions: Allergies Allergy/AdvReac Type Severity Reaction Status Date / Time cephalexin monohydrate Allergy RED Verified 04/13/18 09:03 [From Keflex] ciprofloxacin [From Cipro] Allergy Hives Verified 04/13/18 09:03 ciprofloxacin HCl Allergy Verified 04/13/18 09:03 [From Cipro] codeine Allergy Nausea Verified 04/13/18 09:03 Penicillins Allergy Hives Verified 04/13/18 09:03 Tetanus Vaccines and Toxoid Allergy SWELLING Verified 04/13/18 09:03 [Tetanus Vaccines & Toxoid] OF ARM Medications: Current Medications Acetaminophen (Tylenol) 650 mg PO Q4H PRN PRN Reason: WIN/ T > 101F; Mild Pain (1-3) Hydrocodone Bitart/Acetaminophen ([place] 7.5/325) 1 tab PO Q4H PRN PRN Reason: Pain 1-3 Hydrocodone Bitart/Acetaminophen ([place] 7.5/325) 2 tab PO Q4H PRN PRN Reason: Pain 4-6 Artificial Tears (Tears Naturale) 2 drop EA EYE PRN PRN PRN Reason: Dry Eyes Aspirin (Ecotrin) 81 mg PO BID [facility] Bisacodyl (Dulcolax) 10 mg [place] DAILYPRN PRN PRN Reason: Constipation Celecoxib (Celebrex) 200 mg PO DAILY [facility] Diltiazem HCl (Cardizem Cd) 180 mg PO DAILY [facility] Diphenhydramine HCl (Benadryl) 25 mg PO Q6H PRN PRN Reason: Itching Fentanyl (Sublimaze) 50 mcg IV Q1H PRN PRN Reason: BT PAIN Ferrous Gluconate (Fergon) 324 mg PO BID [facility] Furosemide (Lasix) 20 mg PO DAILY PRN PRN Reason: Edema Guaifenesin (Robitussin Sf) 200 mg PO Q4H PRN PRN Reason: Cough Hydralazine HCl (Apresoline) 10 mg PO BID [facility] Hydralazine HCl (Apresoline) 10 mg SLOW IVP Q4H PRN PRN Reason: SBP > 180 and HR < 70 Clindamycin Phosphate/Dextrose (900 mg/ Device) 50 mls @ 100 mls/hr IVPB Q6HR [facility] Stop: 04/24/18 18:29 Sodium Chloride (Normal Saline 0.9%) 1,000 mls @ 100 mls/hr IV .Q10H [facility] Tranexamic Acid 1,000 mg/ (Sodium Chloride) 110 mls @ 200 mls/hr IVPB ONE [facility] Stop: 04/24/18 13:00 Vancomycin HCl 1.5 gm/ Sodium (Chloride) 300 mls @ 200 mls/hr IVPB 1800 [facility] Stop: 04/24/18 19:29 Ropivacaine 250 ml/ Device 250 mls @ 0 mls/hr NERVE BLCK INF [facility] Iron/Minerals/Multivitamins (Theragran M) 1 tab PO DAILY [facility] Ketorolac Tromethamine (Toradol) 15 mg IVP Q6H PRN PRN Reason: Moderate Pain (4-6) Stop: 04/27/18 07:53 Levothyroxine Sodium (Synthroid) 125 mcg PO 0600 [facility] Loperamide HCl (Imodium) 2 mg PO PRN PRN PRN Reason: Diarrhea/Loose Stools Mineral Oil/White Petrolatum (Eucerin Cream) 0 gm TOP BIDPRN PRN PRN Reason: Dry Skin Nitroglycerin (Nitrostat) 0.4 mg SL Q5MIN PRN PRN Reason: Chest Pain Olmesartan (Benicar) 40 mg PO DAILY [facility] Ondansetron HCl (Zofran) 4 mg IVP Q6H PRN PRN Reason: Nausea/Vomiting Pantoprazole Sodium (Protonix) 40 mg PO DAILY [facility] Promethazine HCl (Phenergan) 12.5 mg IM Q4H PRN PRN Reason: Nausea Rosuvastatin Calcium (Crestor) 10 mg PO HS [facility] Senna/Docusate Sodium (Senokot S) 2 tab PO BID [facility] Sodium Chloride (Flush - Normal Saline) 10 ml IVF PRN PRN PRN Reason: Saline Flush Sodium Chloride ([place] [employer] 0.65%) 0 ml EA NARE QIDPRN PRN PRN Reason: Nasal Congestion Throat Lozenges (Cepastat Lozenges) 1 zhanna PO Q2H PRN PRN Reason: Sore Throat Tramadol HCl (Ultram) 50 mg PO Q6H PRN PRN Reason: Mild Pain (1-3) Tramadol HCl (Ultram) 100 mg PO Q6H PRN PRN Reason: Moderate Pain 4-6 Zolpidem Tartrate (Ambien) 5 mg PO HSPRN PRN PRN Reason: Insomnia
[2018-04-24] MEDS: CeleCOXIB 100 MG CAP PO SCH (13:27)
[2018-04-24] MEDS: Sodium Chloride 0.9% 1,000 ML IV SCH ×3 (13:27→16:57)
[2018-04-24] MEDS: Aspirin 81 mg Enteric Coated Tablet PO SCH ×2 (13:27→21:07)
[2018-04-24] MEDS: hydrALAZINE 10 MG TAB PO SCH ×2 (13:28→21:11)
[2018-04-24] MEDS: Multivitamin W/ Minerals 1 TAB PO SCH (13:28)
[2018-04-24] MEDS: Ferrous Gluconate 324 MG TAB PO SCH ×2 (13:28→21:07)
[2018-04-24] MEDS: Senokot S 8.6-50 MG TAB PO SCH ×2 (13:31→21:07)
[2018-04-24] MEDS ORDERED: HumaLOG 300 UNITS/3 ML VIAL SC PRN ×2 (13:53)
[2018-04-24] MEDS ORDERED: Dextrose 5% in Water 1,000 ML IV PRN (13:53)
[2018-04-24] MEDS ORDERED: Dextrose 50% Abboject 50 ML SYRINGE SLOW IVP PRN (13:53)
[2018-04-24] MEDS: Propafenone HCl 150 MG TAB PO SCH ×2 (14:28→21:08)
[2018-04-24] MEDS: Clindamycin/D5W 900 MG in Premix Bag 1 BAG IVPB SCH ×2 (14:29→16:55)
[2018-04-24] MEDS ORDERED: Bupivacaine 0.25% HCL 30 ML VIAL ONE (14:44)
[2018-04-24] MEDS ORDERED: Ropivacaine 0.5% HCl/PF (150 MG/30 ML VIAL) ONE (14:44)
[2018-04-24] MEDS: HYDROcodone/Acetaminophen 7.5/325 mg Tablet PO PRN ×2 (15:37→21:09)
[2018-04-24] MEDS: Rosuvastatin 10 MG TAB PO SCH (21:07)
[2018-04-25] MEDS: HYDROcodone/Acetaminophen 7.5/325 mg Tablet PO PRN ×5 (01:14→20:10)
[2018-04-25] MEDS: Sodium Chloride 0.9% 1,000 ML IV SCH ×2 (03:13→12:29)
[2018-04-25 06:13] LABS: Hemoglobin 9.7 g/dL (12.0-16.0); Mean Corpuscular HGB CONC 31.7 g/dL (32.0-36.0); Mean Corpuscular Hemoglobin 28.4 pg (27.0-31.0); Mean Corpuscular Volume 89.6 fL (78.0-98.0); Mean Platelet Volume 8.1 fL (7.4-10.4); Platelet Count 154 thou/uL (130-400); RBC Distribution Width 13.1 % (11.5-14.5); Red Blood Cell (RBC) Count 3.41 mill/uL (4.20-5.40); White Blood Cell (WBC) Count 7.1 thou/uL (4.8-10.8)
[2018-04-25] MEDS: Levothyroxine Sodium 125 MCG TAB PO SCH (06:42)
[2018-04-25] MEDS: hydrALAZINE 10 MG TAB PO SCH ×2 (08:58→20:08)
[2018-04-25] MEDS: Aspirin 81 mg Enteric Coated Tablet PO SCH ×2 (08:59→20:07)
[2018-04-25] MEDS: Propafenone HCl 150 MG TAB PO SCH ×3 (08:59→20:08)
[2018-04-25] MEDS: Multivitamin W/ Minerals 1 TAB PO SCH (08:59)
[2018-04-25] MEDS: CeleCOXIB 100 MG CAP PO SCH (08:59)
[2018-04-25] MEDS: Senokot S 8.6-50 MG TAB PO SCH ×2 (08:59→20:07)
[2018-04-25] MEDS: Ferrous Gluconate 324 MG TAB PO SCH ×2 (09:00→20:07)
--- NOTE | 2018-04-25 09:32 | PDOC.PN ---
- Subjective Encounter Start Date: 04/25/18 Encounter Start Time: 07:50 -: old records requested/rev has nausea, pain controlled, request to go to swing bed on discharge Patient seen and examined. No new complaints. No overnight events - Objective Resuscitation Status: Resuscitation Status FULL:Full Resuscitation MAR Reviewed: Yes Vital Signs & Weight: Vital Signs (12 hours) Temp Pulse Resp BP BP Pulse Ox 04/25/18 08:58 78 97/63 04/25/18 07:20 98.2 F 78 18 97/63 95 04/25/18 04:00 98.5 F 82 18 100/60 98 04/25/18 00:00 99.7 F H 77 18 100/62 98 Weight Weight 193 lb I&O: 04/24/18 04/25/18 04/26/18 06:59 06:59 06:59 Intake Total 2300 Output Total 400 Balance 1900 Result Diagrams: 04/25/18 05:27 Additional Labs: Accuchecks 04/25/18 04/24/18 04/24/18 06:48 22:29 16:55 POC Glucose 88 99 136 H Phys Exam - Physical Examination Constitutional: NAD HEENT: PERRLA, moist MMs, sclera anicteric Neck: no JVD, supple Respiratory: no wheezing, no rales, no rhonchi Cardiovascular: RRR, no rub SM+ at parastenal and apex as well as aortic area Gastrointestinal: soft, non-tender, no distention, positive bowel sounds Musculoskeletal: no edema, pulses present left knee with dressing, nerve block+, lopez+ Neurological: non-focal, normal sensation, moves all 4 limbs Psychiatric: normal affect, A&O x 3 Skin: no rash, normal turgor Dx/Plan (1) Status post total left knee replacement Code(s): Z96.652 - PRESENCE OF LEFT ARTIFICIAL KNEE JOINT Status: Acute (2) CAD (coronary artery disease) Code(s): I25.10 - ATHSCL HEART DISEASE OF [place] CORONARY ARTERY W/O ANG PCTRS Status: Chronic Comment: stable without angina (3) Chronic atrial fibrillation Code(s): I48.2 - CHRONIC ATRIAL FIBRILLATION Status: Chronic Comment: Rate controlled (4) Chronic stage c diastolic heart failure Code(s): I50.32 - CHRONIC DIASTOLIC (CONGESTIVE) HEART FAILURE Status: Chronic Comment: currently euvolemic (5) Dyslipidemia Code(s): E78.5 - HYPERLIPIDEMIA, UNSPECIFIED Status: Chronic (6) GERD (gastroesophageal reflux disease) Code(s): K21.9 - GASTRO-ESOPHAGEAL REFLUX DISEASE WITHOUT ESOPHAGITIS Status: Chronic Qualifiers: Esophagitis presence: without esophagitis Qualified Code(s): K21.9 - Gastro -esophageal reflux disease without esophagitis (7) HTN (hypertension) Code(s): I10 - ESSENTIAL (PRIMARY) HYPERTENSION Status: Chronic Comment: controlled (8) Hypothyroidism Code(s): E03.9 - HYPOTHYROIDISM, UNSPECIFIED Status: Chronic Comment: stable (9) Moderate aortic regurgitation Code(s): I35.1 - NONRHEUMATIC AORTIC (VALVE) INSUFFICIENCY Status: Chronic (10) Moderate tricuspid regurgitation Code(s): I07.1 - RHEUMATIC TRICUSPID INSUFFICIENCY Status: Chronic (11) Obesity (BMI 30-39.9) Code(s): E66.9 - OBESITY, UNSPECIFIED Status: Chronic (12) H/O cardiac pacemaker Code(s): Z95.0 - PRESENCE OF CARDIAC PACEMAKER Status: Chronic (13) H/O gastric bypass Code(s): Z98.84 - BARIATRIC SURGERY STATUS Status: Chronic (14) Diabetes type 2, controlled Code(s): E11.9 - TYPE 2 DIABETES MELLITUS WITHOUT COMPLICATIONS Status: Chronic - Plan cont current plan of care, 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, PT/OT, social insurance adviser * continue her home medication * medically stable * pain controlled with current regimen * nerve block as per anesthesia * consider lopez removal * discussed with daughter * medication reviewed as below * symptomatic treatment * will need swing bed on discharge. * hold BP meds for SBP <120 Review of Systems - Review of Systems Eyes: negative: Pain, Vision Change, Conjunctivae Inflammation, Eyelid Inflammation, Redness, Other ENT: negative: Ear Pain, Ear Discharge, Nose Pain, Nose Discharge, Nose Congestion, Mouth Pain, Mouth Swelling, Throat Pain, Throat Swelling, Other Respiratory: negative: Cough, Dry, Shortness of Breath, Hemoptysis, SOB with Excertion, Pleuritic Pain, Sputum, Wheezing Cardiovascular: negative: chest pain, palpitations, orthopnea, paroxysmal nocturnal dyspnea, edema, light headedness, other Gastrointestinal: Nausea. negative: Vomiting, Abdominal Pain, Diarrhea, Constipation, Melena, Hematochezia, Other Genitourinary: negative: Dysuria, Frequency, Incontinence, Hematuria, Retention , Other Musculoskeletal: negative: Neck Pain, Shoulder Pain, Arm Pain, Back Pain, Hand Pain, Leg Pain, Foot Pain, Other Skin: negative: Rash, Lesions, Zheng, Bruising, Other - Medications/Allergies Allergies/Adverse Reactions: Allergies Allergy/AdvReac Type Severity Reaction Status Date / Time cephalexin monohydrate Allergy RED Verified 04/13/18 09:03 [From Keflex] ciprofloxacin [From Cipro] Allergy Hives Verified 04/13/18 09:03 ciprofloxacin HCl Allergy Verified 04/13/18 09:03 [From Cipro] codeine Allergy Nausea Verified 04/13/18 09:03 Penicillins Allergy Hives Verified 04/13/18 09:03 Tetanus Vaccines and Toxoid Allergy SWELLING Verified 04/13/18 09:03 [Tetanus Vaccines & Toxoid] OF ARM Medications: Current Medications Acetaminophen (Tylenol) 650 mg PO Q4H PRN PRN Reason: WIN/ T > 101F; Mild Pain (1-3) Hydrocodone Bitart/Acetaminophen ([place] 7.5/325) 1 tab PO Q4H PRN PRN Reason: Pain 1-3 Hydrocodone Bitart/Acetaminophen ([place] 7.5/325) 2 tab PO Q4H PRN PRN Reason: Pain 4-6 Last Admin: 04/25/18 06:43 Dose: 2 tab Artificial Tears (Tears Naturale) 2 drop EA EYE PRN PRN PRN Reason: Dry Eyes Aspirin (Ecotrin) 81 mg PO BID [facility] Last Admin: 04/25/18 08:59 Dose: 81 mg Bisacodyl (Dulcolax) 10 mg [place] DAILYPRN PRN PRN Reason: Constipation Celecoxib (Celebrex) 200 mg PO DAILY [facility] Last Admin: 04/25/18 08:59 Dose: 200 mg Dextrose/Water (Dextrose 50%) 25 gm SLOW IVP PRN PRN PRN Reason: Hypoglycemia Diltiazem HCl (Cardizem Cd) 180 mg PO DAILY [facility] Last Admin: 04/25/18 09:02 Dose: Not Given Diphenhydramine HCl (Benadryl) 25 mg PO Q6H PRN PRN Reason: Itching Fentanyl (Sublimaze) 50 mcg IV Q1H PRN PRN Reason: BT PAIN Ferrous Gluconate (Fergon) 324 mg PO BID [facility] Last Admin: 04/25/18 09:00 Dose: 324 mg Furosemide (Lasix) 20 mg PO DAILY PRN PRN Reason: Edema Glucagon (Glucagon) 1 mg IM PRN PRN PRN Reason: Hypoglycemia Guaifenesin (Robitussin Sf) 200 mg PO Q4H PRN PRN Reason: Cough Hydralazine HCl (Apresoline) 10 mg PO BID [facility] Last Admin: 04/25/18 08:58 Dose: Not Given Hydralazine HCl (Apresoline) 10 mg SLOW IVP Q4H PRN PRN Reason: SBP > 180 and HR < 70 Sodium Chloride (Normal Saline 0.9%) 1,000 mls @ 100 mls/hr IV .Q10H [facility] Last Admin: 04/25/18 03:13 Dose: Not Given Ropivacaine 250 ml/ Device 250 mls @ 0 mls/hr NERVE BLCK INF [facility] Dextrose/Water (D5w) 1,000 mls @ 0 mls/hr IV .Q0M PRN PRN Reason: Hypoglycemia Insulin Human Lispro (Humalog) 0 units SC .MODERATE SLIDING SC PRN PRN Reason: Moderate [place] Scale Insulin Human Lispro (Humalog) 0 units SC .BEDTIME SLIDING SC PRN PRN Reason: Bedtime [place] Iron/Minerals/Multivitamins (Theragran M) 1 tab PO DAILY [facility] Last Admin: 04/25/18 08:59 Dose: 1 tab Ketorolac Tromethamine (Toradol) 15 mg IVP Q6H PRN PRN Reason: Moderate Pain (4-6) Stop: 04/27/18 07:53 Levothyroxine Sodium (Synthroid) 125 mcg PO 0600 [facility] Last Admin: 04/25/18 06:42 Dose: 125 mcg Loperamide HCl (Imodium) 2 mg PO PRN PRN PRN Reason: Diarrhea/Loose Stools Mineral Oil/White Petrolatum (Eucerin Cream) 0 gm TOP BIDPRN PRN PRN Reason: Dry Skin Nitroglycerin (Nitrostat) 0.4 mg SL Q5MIN PRN PRN Reason: Chest Pain Olmesartan (Benicar) 40 mg PO DAILY [facility] Last Admin: 04/25/18 09:01 Dose: Not Given Ondansetron HCl (Zofran) 4 mg IVP Q6H PRN PRN Reason: Nausea/Vomiting Last Admin: 04/25/18 07:35 Dose: 4 mg Pantoprazole Sodium (Protonix) 40 mg PO DAILY [facility] Last Admin: 04/25/18 09:00 Dose: 40 mg Promethazine HCl (Phenergan) 12.5 mg IM Q4H PRN PRN Reason: Nausea Propafenone HCl (Rythmol) 150 mg PO TID [facility] Last Admin: 04/25/18 08:59 Dose: 150 mg Rosuvastatin Calcium (Crestor) 10 mg PO HS [facility] Last Admin: 04/24/18 21:07 Dose: 10 mg Senna/Docusate Sodium (Senokot S) 2 tab PO BID [facility] Last Admin: 04/25/18 08:59 Dose: 2 tab Sodium Chloride (Flush - Normal Saline) 10 ml IVF PRN PRN PRN Reason: Saline Flush Sodium Chloride ([place] Nas[place] 0.65%) 0 ml EA NARE QIDPRN PRN PRN Reason: Nasal Congestion Throat Lozenges (Cepastat Lozenges) 1 zhanna PO Q2H PRN PRN Reason: Sore Throat Tramadol HCl (Ultram) 50 mg PO Q6H PRN PRN Reason: Mild Pain (1-3) Tramadol HCl (Ultram) 100 mg PO Q6H PRN PRN Reason: Moderate Pain 4-6 Zolpidem Tartrate (Ambien) 5 mg PO HSPRN PRN PRN Reason: Insomnia
[2018-04-25] MEDS: Ropivacaine HCl/PF 250 ML in Premix Bag 1 BAG NERVE BLCK SCH (11:28)
[2018-04-25 11:45] VITALS: BMI 35.3
[2018-04-25] MEDS ORDERED: Apixaban 5 MG TAB PO SCH (12:00)
[2018-04-25] MEDS: Fentanyl 100 MCG/2 ML VIAL IV PRN ×2 (13:36→17:47)
[2018-04-25] MEDS: Rosuvastatin 10 MG TAB PO SCH (20:07)
[2018-04-25] MEDS: Apixaban 5 MG TAB PO SCH (20:07)
[2018-04-26] MEDS: Sodium Chloride 0.9% 1,000 ML IV SCH ×4 (00:15→23:31)
[2018-04-26] MEDS: HYDROcodone/Acetaminophen 7.5/325 mg Tablet PO PRN ×5 (00:45→19:03)
[2018-04-26] MEDS: Levothyroxine Sodium 125 MCG TAB PO SCH (05:32)
[2018-04-26 05:57] LABS: Hemoglobin 9.7 g/dL (12.0-16.0); Mean Corpuscular HGB CONC 31.4 g/dL (32.0-36.0); Mean Corpuscular Hemoglobin 28.1 pg (27.0-31.0); Mean Corpuscular Volume 89.5 fL (78.0-98.0); Mean Platelet Volume 8.5 fL (7.4-10.4); Platelet Count 151 thou/uL (130-400); RBC Distribution Width 13.2 % (11.5-14.5); Red Blood Cell (RBC) Count 3.46 mill/uL (4.20-5.40); White Blood Cell (WBC) Count 7.7 thou/uL (4.8-10.8)
[2018-04-26] MEDS: Apixaban 5 MG TAB PO SCH ×2 (09:30→20:57)
[2018-04-26] MEDS: Senokot S 8.6-50 MG TAB PO SCH ×2 (09:30→20:57)
[2018-04-26] MEDS: Aspirin 81 mg Enteric Coated Tablet PO SCH ×2 (09:30→20:57)
[2018-04-26] MEDS: Multivitamin W/ Minerals 1 TAB PO SCH (09:30)
[2018-04-26] MEDS: Ferrous Gluconate 324 MG TAB PO SCH ×2 (09:30→20:57)
[2018-04-26] MEDS: Propafenone HCl 150 MG TAB PO SCH ×3 (09:31→20:57)
[2018-04-26] MEDS: CeleCOXIB 100 MG CAP PO SCH (09:31)
[2018-04-26] MEDS: hydrALAZINE 10 MG TAB PO SCH ×2 (09:31→20:56)
--- NOTE | 2018-04-26 09:40 | PDOC.PN ---
- Subjective Encounter Start Date: 04/26/18 Encounter Start Time: 07:25 Patient seen and examined. No new complaints. No overnight events she gets pain with PT - Objective Resuscitation Status: Resuscitation Status FULL:Full Resuscitation MAR Reviewed: Yes Vital Signs & Weight: Vital Signs (12 hours) Temp Pulse Resp BP Pulse Ox 04/26/18 09:31 75 04/26/18 07:41 97.8 F 75 14 106/72 98 04/26/18 07:07 84 16 95 04/26/18 04:00 98.6 F 73 18 100/60 96 04/26/18 02:40 72 16 04/26/18 00:00 98.5 F 83 18 100/64 99 04/25/18 23:35 76 16 Weight Admit Weight 187 lb Weight 187 lb I&O: 04/25/18 04/26/18 04/27/18 06:59 06:59 06:59 Intake Total 2300 2020 Output Total 400 1450 Balance 1900 570 Result Diagrams: 04/26/18 04:55 Additional Labs: Accuchecks 04/26/18 04/25/18 04/25/18 05:31 20:45 15:57 POC Glucose 101 144 H 108 04/25/18 11:53 POC Glucose 112 H Phys Exam - Physical Examination Constitutional: NAD HEENT: PERRLA, moist MMs, sclera anicteric Neck: no JVD, supple Respiratory: no wheezing, no rales, no rhonchi Cardiovascular: RRR, no significant murmur, no rub Gastrointestinal: soft, non-tender, no distention, positive bowel sounds Musculoskeletal: no edema, pulses present left knee with dressing, nerve block+, lopez+ Neurological: non-focal, normal sensation, moves all 4 limbs Psychiatric: normal affect, A&O x 3 Skin: no rash, normal turgor Dx/Plan (1) Status post total left knee replacement Code(s): Z96.652 - PRESENCE OF LEFT ARTIFICIAL KNEE JOINT Status: Acute (2) CAD (coronary artery disease) Code(s): I25.10 - ATHSCL HEART DISEASE OF [place] CORONARY ARTERY W/O ANG PCTRS Status: Chronic Comment: stable without angina (3) Chronic atrial fibrillation Code(s): I48.2 - CHRONIC ATRIAL FIBRILLATION Status: Chronic Comment: Rate controlled (4) Chronic stage c diastolic heart failure Code(s): I50.32 - CHRONIC DIASTOLIC (CONGESTIVE) HEART FAILURE Status: Chronic Comment: currently euvolemic (5) Dyslipidemia Code(s): E78.5 - HYPERLIPIDEMIA, UNSPECIFIED Status: Chronic (6) GERD (gastroesophageal reflux disease) Code(s): K21.9 - GASTRO-ESOPHAGEAL REFLUX DISEASE WITHOUT ESOPHAGITIS Status: Chronic Qualifiers: Esophagitis presence: without esophagitis Qualified Code(s): K21.9 - Gastro -esophageal reflux disease without esophagitis (7) HTN (hypertension) Code(s): I10 - ESSENTIAL (PRIMARY) HYPERTENSION Status: Chronic Comment: controlled (8) Hypothyroidism Code(s): E03.9 - HYPOTHYROIDISM, UNSPECIFIED Status: Chronic Comment: stable (9) Moderate aortic regurgitation Code(s): I35.1 - NONRHEUMATIC AORTIC (VALVE) INSUFFICIENCY Status: Chronic (10) Moderate tricuspid regurgitation Code(s): I07.1 - RHEUMATIC TRICUSPID INSUFFICIENCY Status: Chronic (11) Obesity (BMI 30-39.9) Code(s): E66.9 - OBESITY, UNSPECIFIED Status: Chronic (12) H/O cardiac pacemaker Code(s): Z95.0 - PRESENCE OF CARDIAC PACEMAKER Status: Chronic (13) H/O gastric bypass Code(s): Z98.84 - BARIATRIC SURGERY STATUS Status: Chronic (14) Diabetes type 2, controlled Code(s): E11.9 - TYPE 2 DIABETES MELLITUS WITHOUT COMPLICATIONS Status: Chronic - Plan cont current plan of care, 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, 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, 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 * continue aspirin for DVT prophylaxis * continue pepcid for GI prophylaxis * home medication reconciled * continue PT/OT as per [facility] protocol treatment * nerve block as per anesthesia * pain control with pain meds as below * medication reviewed as below * symptomatic treatment * discussed with family * tomorrow she will be discharged to swing bed Review of Systems - Review of Systems ENT: negative: Ear Pain, Ear Discharge, Nose Pain, Nose Discharge, Nose Congestion, Mouth Pain, Mouth Swelling, Throat Pain, Throat Swelling, Other Respiratory: negative: Cough, Dry, Shortness of Breath, Hemoptysis, SOB with Excertion, Pleuritic Pain, Sputum, Wheezing Cardiovascular: negative: chest pain, palpitations, orthopnea, paroxysmal nocturnal dyspnea, edema, light headedness, other Gastrointestinal: negative: Nausea, Vomiting, Abdominal Pain, Diarrhea, Constipation, Melena, Hematochezia, Other Genitourinary: negative: Dysuria, Frequency, Incontinence, Hematuria, Retention , Other Musculoskeletal: negative: Neck Pain, Shoulder Pain, Arm Pain, Back Pain, Hand Pain, Leg Pain, Foot Pain, Other Skin: negative: Rash, Lesions, Zheng, Bruising, Other - Medications/Allergies Allergies/Adverse Reactions: Allergies Allergy/AdvReac Type Severity Reaction Status Date / Time cephalexin monohydrate Allergy RED Verified 04/13/18 09:03 [From Keflex] ciprofloxacin [From Cipro] Allergy Hives Verified 04/13/18 09:03 ciprofloxacin HCl Allergy Verified 04/13/18 09:03 [From Cipro] codeine Allergy Nausea Verified 04/13/18 09:03 Penicillins Allergy Hives Verified 04/13/18 09:03 Tetanus Vaccines and Toxoid Allergy SWELLING Verified 04/13/18 09:03 [Tetanus Vaccines & Toxoid] OF ARM Medications: Current Medications Acetaminophen (Tylenol) 650 mg PO Q4H PRN PRN Reason: WIN/ T > 101F; Mild Pain (1-3) Hydrocodone Bitart/Acetaminophen ([place] 7.5/325) 1 tab PO Q4H PRN PRN Reason: Pain 1-3 Hydrocodone Bitart/Acetaminophen ([place] 7.5/325) 2 tab PO Q4H PRN PRN Reason: Pain 4-6 Last Admin: 04/26/18 05:35 Dose: 2 tab Albuterol/Ipratropium (Duoneb) 3 ml NEB [id number] [facility] Last Admin: 04/26/18 07:07 Dose: 3 ml Apixaban (Eliquis) 5 mg PO BID [facility] Last Admin: 04/26/18 09:30 Dose: 5 mg Artificial Tears (Tears Naturale) 2 drop EA EYE PRN PRN PRN Reason: Dry Eyes Aspirin (Ecotrin) 81 mg PO BID [facility] Last Admin: 04/26/18 09:30 Dose: 81 mg Bisacodyl (Dulcolax) 10 mg [place] DAILYPRN PRN PRN Reason: Constipation Celecoxib (Celebrex) 200 mg PO DAILY [facility] Last Admin: 04/26/18 09:31 Dose: 200 mg Dextrose/Water (Dextrose 50%) 25 gm SLOW IVP PRN PRN PRN Reason: Hypoglycemia Diltiazem HCl (Cardizem Cd) 180 mg PO DAILY [facility] Last Admin: 04/26/18 09:31 Dose: 180 mg Diphenhydramine HCl (Benadryl) 25 mg PO Q6H PRN PRN Reason: Itching Fentanyl (Sublimaze) 50 mcg IV Q1H PRN PRN Reason: BT PAIN Last Admin: 04/25/18 17:47 Dose: 50 mcg Ferrous Gluconate (Fergon) 324 mg PO BID [facility] Last Admin: 04/26/18 09:30 Dose: 324 mg Furosemide (Lasix) 20 mg PO DAILY PRN PRN Reason: Edema Glucagon (Glucagon) 1 mg IM PRN PRN PRN Reason: Hypoglycemia Guaifenesin (Robitussin Sf) 200 mg PO Q4H PRN PRN Reason: Cough Hydralazine HCl (Apresoline) 10 mg PO BID [facility] Last Admin: 04/26/18 09:31 Dose: Not Given Hydralazine HCl (Apresoline) 10 mg SLOW IVP Q4H PRN PRN Reason: SBP > 180 and HR < 70 Sodium Chloride (Normal Saline 0.9%) 1,000 mls @ 100 mls/hr IV .Q10H [facility] Last Admin: 04/26/18 08:16 Dose: Not Given Ropivacaine 250 ml/ Device 250 mls @ 0 mls/hr NERVE BLCK INF [facility] Last Admin: 04/25/18 11:28 Dose: 250 mls Dextrose/Water (D5w) 1,000 mls @ 0 mls/hr IV .Q0M PRN PRN Reason: Hypoglycemia Insulin Human Lispro (Humalog) 0 units SC .MODERATE SLIDING SC PRN PRN Reason: Moderate Correctional Scale Insulin Human Lispro (Humalog) 0 units SC .BEDTIME SLIDING SC PRN PRN Reason: Bedtime Correctional Scale Iron/Minerals/Multivitamins (Theragran M) 1 tab PO DAILY [facility] Last Admin: 04/26/18 09:30 Dose: 1 tab Ketorolac Tromethamine (Toradol) 15 mg IVP Q6H PRN PRN Reason: Moderate Pain (4-6) Stop: 04/27/18 07:53 Levothyroxine Sodium (Synthroid) 125 mcg PO 0600 [facility] Last Admin: 04/26/18 05:32 Dose: 125 mcg Loperamide HCl (Imodium) 2 mg PO PRN PRN PRN Reason: Diarrhea/Loose Stools Mineral Oil/White Petrolatum (Eucerin Cream) 0 gm TOP BIDPRN PRN PRN Reason: Dry Skin Nitroglycerin (Nitrostat) 0.4 mg SL Q5MIN PRN PRN Reason: Chest Pain Olmesartan (Benicar) 40 mg PO DAILY [facility] Last Admin: 04/26/18 09:31 Dose: Not Given Ondansetron HCl (Zofran) 4 mg IVP Q6H PRN PRN Reason: Nausea/Vomiting Last Admin: 04/25/18 07:35 Dose: 4 mg Pantoprazole Sodium (Protonix) 40 mg PO DAILY [facility] Last Admin: 04/26/18 09:30 Dose: 40 mg Promethazine HCl (Phenergan) 12.5 mg IM Q4H PRN PRN Reason: Nausea Propafenone HCl (Rythmol) 150 mg PO TID [facility] Last Admin: 04/26/18 09:31 Dose: 150 mg Rosuvastatin Calcium (Crestor) 10 mg PO [facility] Last Admin: 04/25/18 20:07 Dose: 10 mg Senna/Docusate Sodium (Senokot S) 2 tab PO BID [facility] Last Admin: 04/26/18 09:30 Dose: 2 tab Sodium Chloride (Flush - Normal Saline) 10 ml IVF PRN PRN PRN Reason: Saline Flush Sodium Chloride ([place] Nasal [place] 0.65%) 0 ml EA NARE QIDPRN PRN PRN Reason: Nasal Congestion Throat Lozenges (Cepastat Lozenges) 1 zhanna PO Q2H PRN PRN Reason: Sore Throat Tramadol HCl (Ultram) 50 mg PO Q6H PRN PRN Reason: Mild Pain (1-3) Tramadol HCl (Ultram) 100 mg PO Q6H PRN PRN Reason: Moderate Pain 4-6 Zolpidem Tartrate (Ambien) 5 mg PO HSPRN PRN PRN Reason: Insomnia
[2018-04-26] MEDS: Ropivacaine HCl/PF 250 ML in Premix Bag 1 BAG NERVE BLCK SCH (13:46)
[2018-04-26] MEDS: Rosuvastatin 10 MG TAB PO SCH (20:57)
[2018-04-27] MEDS: Fentanyl 100 MCG/2 ML VIAL IV PRN ×2 (05:08→09:58)
[2018-04-27] MEDS: Levothyroxine Sodium 125 MCG TAB PO SCH (05:08)
[2018-04-27 05:47] LABS: Hemoglobin 10.3 g/dL (12.0-16.0); Mean Corpuscular HGB CONC 32.2 g/dL (32.0-36.0); Mean Corpuscular Hemoglobin 28.8 pg (27.0-31.0); Mean Corpuscular Volume 89.3 fL (78.0-98.0); Mean Platelet Volume 7.9 fL (7.4-10.4); Platelet Count 157 thou/uL (130-400); RBC Distribution Width 13.4 % (11.5-14.5); Red Blood Cell (RBC) Count 3.58 mill/uL (4.20-5.40); White Blood Cell (WBC) Count 8.8 thou/uL (4.8-10.8)
[2018-04-27] MEDS: Sodium Chloride 0.9% 1,000 ML IV SCH (07:23)
[2018-04-27] MEDS: HYDROcodone/Acetaminophen 7.5/325 mg Tablet PO PRN ×2 (08:19→12:13)
[2018-04-27] MEDS: CeleCOXIB 100 MG CAP PO SCH (08:20)
[2018-04-27] MEDS: Multivitamin W/ Minerals 1 TAB PO SCH (08:20)
[2018-04-27] MEDS: Aspirin 81 mg Enteric Coated Tablet PO SCH (08:20)
[2018-04-27] MEDS: Apixaban 5 MG TAB PO SCH (08:20)
[2018-04-27] MEDS: Ferrous Gluconate 324 MG TAB PO SCH (08:20)
[2018-04-27] MEDS: Propafenone HCl 150 MG TAB PO SCH (08:20)
[2018-04-27] MEDS: Senokot S 8.6-50 MG TAB PO SCH (08:20)
[2018-04-27] MEDS: hydrALAZINE 10 MG TAB PO SCH (08:21)
--- NOTE | 2018-04-27 09:52 | PDOC.PN ---
- Subjective Encounter Start Date: 04/27/18 Encounter Start Time: 07:25 Patient seen and examined. No new complaints. No overnight events she gets pain with ambulation, controlled with pain meds - Objective Resuscitation Status: Resuscitation Status FULL:Full Resuscitation MAR Reviewed: Yes Vital Signs & Weight: Vital Signs (12 hours) Temp Pulse Resp BP BP Pulse Ox 04/27/18 08:21 89 04/27/18 07:55 97.8 F 89 18 134/76 100 04/27/18 06:55 87 16 92 L 04/27/18 04:04 98.5 F 83 18 94/60 95 04/27/18 02:00 97 16 99 04/27/18 01:03 98.4 F 74 19 90/54 L 94 L 04/26/18 22:02 78 16 93 L Weight Admit Weight 187 lb Weight 187 lb I&O: 04/26/18 04/27/18 04/28/18 06:59 06:59 06:59 Intake Total 2020 810 Output Total 1450 625 Balance 570 185 Result Diagrams: 04/27/18 05:31 Additional Labs: Accuchecks 04/27/18 04/26/18 04/26/18 06:01 20:38 15:43 POC Glucose 99 140 H 117 H 04/26/18 11:25 POC Glucose 114 H Phys Exam - Physical Examination Constitutional: NAD HEENT: PERRLA, moist MMs, sclera anicteric Neck: no JVD, supple Respiratory: no wheezing, no rales, no rhonchi Cardiovascular: RRR, no significant murmur, no rub Gastrointestinal: soft, non-tender, no distention, positive bowel sounds Musculoskeletal: no edema, pulses present left knee with dressing Neurological: non-focal, normal sensation, moves all 4 limbs Psychiatric: normal affect, A&O x 3 Skin: no rash, normal turgor Dx/Plan (1) Status post total left knee replacement Code(s): Z96.652 - PRESENCE OF LEFT ARTIFICIAL KNEE JOINT Status: Acute (2) CAD (coronary artery disease) Code(s): I25.10 - ATHSCL HEART DISEASE OF [place] CORONARY ARTERY W/O ANG PCTRS Status: Chronic Comment: stable without angina (3) Chronic atrial fibrillation Code(s): I48.2 - CHRONIC ATRIAL FIBRILLATION Status: Chronic Comment: Rate controlled (4) Chronic stage c diastolic heart failure Code(s): I50.32 - CHRONIC DIASTOLIC (CONGESTIVE) HEART FAILURE Status: Chronic Comment: currently euvolemic (5) Dyslipidemia Code(s): E78.5 - HYPERLIPIDEMIA, UNSPECIFIED Status: Chronic (6) GERD (gastroesophageal reflux disease) Code(s): K21.9 - GASTRO-ESOPHAGEAL REFLUX DISEASE WITHOUT ESOPHAGITIS Status: Chronic Qualifiers: Esophagitis presence: without esophagitis Qualified Code(s): K21.9 - Gastro -esophageal reflux disease without esophagitis (7) HTN (hypertension) Code(s): I10 - ESSENTIAL (PRIMARY) HYPERTENSION Status: Chronic Comment: controlled (8) Hypothyroidism Code(s): E03.9 - HYPOTHYROIDISM, UNSPECIFIED Status: Chronic Comment: stable (9) Moderate aortic regurgitation Code(s): I35.1 - NONRHEUMATIC AORTIC (VALVE) INSUFFICIENCY Status: Chronic (10) Moderate tricuspid regurgitation Code(s): I07.1 - RHEUMATIC TRICUSPID INSUFFICIENCY Status: Chronic (11) Obesity (BMI 30-39.9) Code(s): E66.9 - OBESITY, UNSPECIFIED Status: Chronic (12) H/O cardiac pacemaker Code(s): Z95.0 - PRESENCE OF CARDIAC PACEMAKER Status: Chronic (13) H/O gastric bypass Code(s): Z98.84 - BARIATRIC SURGERY STATUS Status: Chronic (14) Diabetes type 2, controlled Code(s): E11.9 - TYPE 2 DIABETES MELLITUS WITHOUT COMPLICATIONS Status: Chronic - Plan cont current plan of care, 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 Review of Systems - Review of Systems ENT: negative: Ear Pain, Ear Discharge, Nose Pain, Nose Discharge, Nose Congestion, Mouth Pain, Mouth Swelling, Throat Pain, Throat Swelling, Other Respiratory: negative: Cough, Dry, Shortness of Breath, Hemoptysis, SOB with Excertion, Pleuritic Pain, Sputum, Wheezing Cardiovascular: negative: chest pain, palpitations, orthopnea, paroxysmal nocturnal dyspnea, edema, light headedness, other Gastrointestinal: negative: Nausea, Vomiting, Abdominal Pain, Diarrhea, Constipation, Melena, Hematochezia, Other Genitourinary: negative: Dysuria, Frequency, Incontinence, Hematuria, Retention , Other Musculoskeletal: negative: Neck Pain, Shoulder Pain, Arm Pain, Back Pain, Hand Pain, Leg Pain, Foot Pain, Other - Medications/Allergies Allergies/Adverse Reactions: Allergies Allergy/AdvReac Type Severity Reaction Status Date / Time cephalexin monohydrate Allergy RED Verified 04/13/18 09:03 [From Keflex] ciprofloxacin [From Cipro] Allergy Hives Verified 04/13/18 09:03 ciprofloxacin HCl Allergy Verified 04/13/18 09:03 [From Cipro] codeine Allergy Nausea Verified 04/13/18 09:03 Penicillins Allergy Hives Verified 04/13/18 09:03 Tetanus Vaccines and Toxoid Allergy SWELLING Verified 04/13/18 09:03 [Tetanus Vaccines & Toxoid] OF ARM Medications: Current Medications Acetaminophen (Tylenol) 650 mg PO Q4H PRN PRN Reason: WIN/ T > 101F; Mild Pain (1-3) Hydrocodone Bitart/Acetaminophen ([place] 7.5/325) 1 tab PO Q4H PRN PRN Reason: Pain 1-3 Hydrocodone Bitart/Acetaminophen ([place] 7.5/325) 2 tab PO Q4H PRN PRN Reason: Pain 4-6 Last Admin: 04/27/18 08:19 Dose: 2 tab Albuterol/Ipratropium (Duoneb) 3 ml NEB [id number] [facility] Last Admin: 04/27/18 06:55 Dose: 3 ml Apixaban (Eliquis) 5 mg PO BID [facility] Last Admin: 04/27/18 08:20 Dose: 5 mg Artificial Tears (Tears Naturale) 2 drop EA EYE PRN PRN PRN Reason: Dry Eyes Aspirin (Ecotrin) 81 mg PO BID [facility] Last Admin: 04/27/18 08:20 Dose: 81 mg Bisacodyl (Dulcolax) 10 mg [place] DAILYPRN PRN PRN Reason: Constipation Celecoxib (Celebrex) 200 mg PO DAILY [facility] Last Admin: 04/27/18 08:20 Dose: 200 mg Dextrose/Water (Dextrose 50%) 25 gm SLOW IVP PRN PRN PRN Reason: Hypoglycemia Diltiazem HCl (Cardizem Cd) 180 mg PO DAILY [facility] Last Admin: 04/27/18 08:20 Dose: 180 mg Diphenhydramine HCl (Benadryl) 25 mg PO Q6H PRN PRN Reason: Itching Fentanyl (Sublimaze) 50 mcg IV Q1H PRN PRN Reason: BT PAIN Last Admin: 04/27/18 05:08 Dose: 50 mcg Ferrous Gluconate (Fergon) 324 mg PO BID [facility] Last Admin: 04/27/18 08:20 Dose: 324 mg Furosemide (Lasix) 20 mg PO DAILY PRN PRN Reason: Edema Glucagon (Glucagon) 1 mg IM PRN PRN PRN Reason: Hypoglycemia Guaifenesin (Robitussin Sf) 200 mg PO Q4H PRN PRN Reason: Cough Hydralazine HCl (Apresoline) 10 mg PO BID [facility] Last Admin: 04/27/18 08:21 Dose: Not Given Hydralazine HCl (Apresoline) 10 mg SLOW IVP Q4H PRN PRN Reason: SBP > 180 and HR < 70 Sodium Chloride (Normal Saline 0.9%) 1,000 mls @ 100 mls/hr IV .Q10H [facility] Last Admin: 04/27/18 07:23 Dose: Not Given Ropivacaine 250 ml/ Device 250 mls @ 0 mls/hr NERVE BLCK INF [facility] Last Admin: 04/26/18 13:46 Dose: 250 mls Dextrose/Water (D5w) 1,000 mls @ 0 mls/hr IV .Q0M PRN PRN Reason: Hypoglycemia Insulin Human Lispro (Humalog) 0 units SC .MODERATE SLIDING SC PRN PRN Reason: Moderate Correctional Scale Insulin Human Lispro (Humalog) 0 units SC .BEDTIME SLIDING SC PRN PRN Reason: Bedtime Correctional Scale Iron/Minerals/Multivitamins (Theragran M) 1 tab PO DAILY [facility] Last Admin: 04/27/18 08:20 Dose: 1 tab Levothyroxine Sodium (Synthroid) 125 mcg PO 0600 [facility] Last Admin: 04/27/18 05:08 Dose: 125 mcg Loperamide HCl (Imodium) 2 mg PO PRN PRN PRN Reason: Diarrhea/Loose Stools Mineral Oil/White Petrolatum (Eucerin Cream) 0 gm TOP BIDPRN PRN PRN Reason: Dry Skin Nitroglycerin (Nitrostat) 0.4 mg SL Q5MIN PRN PRN Reason: Chest Pain Olmesartan (Benicar) 40 mg PO DAILY [facility] Last Admin: 04/27/18 08:20 Dose: Not Given Ondansetron HCl (Zofran) 4 mg IVP Q6H PRN PRN Reason: Nausea/Vomiting Last Admin: 04/25/18 07:35 Dose: 4 mg Pantoprazole Sodium (Protonix) 40 mg PO DAILY [facility] Last Admin: 04/27/18 08:20 Dose: 40 mg Promethazine HCl (Phenergan) 12.5 mg IM Q4H PRN PRN Reason: Nausea Propafenone HCl (Rythmol) 150 mg PO TID [facility] Last Admin: 04/27/18 08:20 Dose: 150 mg Rosuvastatin Calcium (Crestor) 10 mg PO HS [facility] Last Admin: 04/26/18 20:57 Dose: 10 mg Senna/Docusate Sodium (Senokot S) 2 tab PO BID [facility] Last Admin: 04/27/18 08:20 Dose: 2 tab Sodium Chloride (Flush - Normal Saline) 10 ml IVF PRN PRN PRN Reason: Saline Flush Sodium Chloride ([place] Nasal [place] 0.65%) 0 ml EA NARE QIDPRN PRN PRN Reason: Nasal Congestion Throat Lozenges (Cepastat Lozenges) 1 zhanna PO Q2H PRN PRN Reason: Sore Throat Tramadol HCl (Ultram) 50 mg PO Q6H PRN PRN Reason: Mild Pain (1-3) Tramadol HCl (Ultram) 100 mg PO Q6H PRN PRN Reason: Moderate Pain 4-6 Zolpidem Tartrate (Ambien) 5 mg PO HSPRN PRN PRN Reason: Insomnia
--- NOTE | 2018-04-27 11:31 | DIS ---
DATE OF ADMISSION: 04/24/2018 DATE OF DISCHARGE: 04/27/2018 PRIMARY CARE PHYSICIAN: Fernando Barriga M.D. DISCHARGE DISPOSITION: Swing bed. PRIMARY DISCHARGE DIAGNOSIS: Status post left total knee replacement. SECONDARY DISCHARGE DIAGNOSES: Normocytic normochromic anemia, coronary artery disease, chronic atri al fibrillation, chronic stage C diastolic heart failure, diabetes type 2, dyslipidemia, gastroesopha geal reflux disease, history of cardiac pacemaker, history of gastric bypass, hypothyroidism, moderat e aortic regurgitation, moderate tricuspid regurgitation, obesity with BMI 35. PRIMARY PROCEDURE/OPERATION: Left total knee replacement. RADIOLOGICAL INVESTIGATION: None. SIGNIFICANT LABORATORY DATA: WBC 8.8, hemoglobin 10.3, platelet 157,000. DISCHARGE MEDICATIONS: Aspirin 81 mg daily, cod liver oil 1 capsule daily, Cartia XT 180 mg p.o. laci ly, Nexium 20 mg daily, Lasix 20 mg daily, hydralazine 10 mg p.o. b.i.d., Vowinckel 7.5 one or two tablet s q.4 hourly p.r.n., Synthroid 125 mcg p.o. daily, Benicar 40 mg p.o. daily, Rythmol 150 mg p.o. t.i. d., Crestor 10 mg p.o. at bedtime, tramadol 50 mg q.6 hourly p.r.n., Eliquis 5 mg p.o. b.i.d. CONTRAINDICATIONS: None. CODE STATUS: Full code. INPATIENT CONSULTANTS: Dr. Soto was primary. Sound team was consulted for medical comanagement. ALLERGIES: KEFLEX and CIPRO. DISCHARGE PLAN: Post hospital, the patient is planned for discharge to swing bed. Subsequently, the patient will follow up with primary care physician. HOSPITAL COURSE: A 73-year-old female who was admitted by Dr. Soto for left total knee replacement, which was done on 04/24/2018 without any immediate complication. While in hospital, she had nerve bl ock for pain control. She was also requiring Vowinckel as well as fentanyl as needed basis. She did wel l with [facility] protocol treatment. Her medical problem remains stable. We continued all he r home medication while in hospital as well as upon discharge. This patient is seen and examined at bedside today. Please see my progress note from today for furth er detail. The patient is planned for discharge to [place] swing bed today. We have done disch arge medication reconciliation. Overall, the patient is medically stable for discharge and we will s ign off.
[2018-04-27 11:40] VITALS: BP 104/67; TEMP 98.3
== END 2018-04-27 14:28 | disposition home or self-care (01) | DRG 470 ==
LOC: SDC 05:49 → SJJU 07:10
PROVIDERS: ADMIT Orthopaedic Surgery; ATTEND Orthopaedic Surgery
PROC: 0SRD0J9 Replacement of Left Knee Joint with Synthetic Substitute, Cemented, Open Approach (ICD-10-PCS; principal; 2018-04-24)
DX: M17.12 Unilateral primary osteoarthritis, left knee (principal); I50.32 Chronic diastolic (congestive) heart failure; I25.10 Atherosclerotic heart disease of native coronary artery without angina pectoris; Z95.0 Presence of cardiac pacemaker; Z98.84 Bariatric surgery status; D64.9 Anemia, unspecified; I48.2 Chronic atrial fibrillation; E78.5 Hyperlipidemia, unspecified; K21.9 Gastro-esophageal reflux disease without esophagitis; E03.9 Hypothyroidism, unspecified; I08.1 Rheumatic disorders of both mitral and tricuspid valves; E66.9 Obesity, unspecified; Z68.35 Body mass index [BMI] 35.0-35.9, adult; Z88.8 Allergy status to other drugs, medicaments and biological substances; Z88.1 Allergy status to other antibiotic agents; J30.2 Other seasonal allergic rhinitis; Z87.442 Personal history of urinary calculi; Z79.899 Other long term (current) drug therapy; Z79.01 Long term (current) use of anticoagulants; Z88.0 Allergy status to penicillin
CPT/HCPCS: 36415; 36416; 85027; 94640; C1713; C1776; G8978-GP-CK; G8979-GP-CI; J0131; J1885; J2250; J2405; J2795; J3010; J3370; J3490; J7050; J7620; S0020

== ENCOUNTER → 2018-08-30 | Day surgery (SDC) | payer MEDICARE, BC ==
[2018-08-29 12:23] VITALS: BMI 34.5
[~2018-08-30] MED LIST: HYDROcodone/Acetaminophen 5/325 mg Tablet ONE; Iopamidol-M 200 41% 20 ML VIAL ONE; Prevnar 13-Val Conj/PF 0.5 ML SYRINGE IM ONE
[2018-08-30 07:59] VITALS: BP 147/70; TEMP 97.8
--- NOTE | 2018-08-30 09:47 | CT ---
LUMBAR MYELOGRAM WITH POST MYELOGRAPHIC CT: Date: 08-30-18 Technique: Informed consent was obtained from the patient. The right L3-4 paraspinal region was prepped and drap ed in the usual sterile manner. A 1% Lidocaine solution was used to anesthetize the overlying soft ti ssues. A 22 gauge spinal needle was placed in the L3-4 interlaminar space using a right paraspinal ap proach. It was advanced into the subarachnoid space. A total of 13 ml of Isovue M200 was injected int o the subarachnoid space. Radiation dosimetry: 2.3 minutes fluoroscopy, AK 1.48 mGy*cm^2. FINDINGS: T12-L: there is some intervertebral disc desiccation and calcification. There is a mild broad based d isc bulge. No significant degree of central or neural foraminal narrowing seen. L1-2: There is a broad based central disc protrusion compressing the thecal sac resulting in mild to moderate central stenosis. No significant evidence of lateral recess stenosis or neural foraminal aleja rowing is seen. L2-3: Vacuum disc changes seen at this level. There is a broad based disc bulge with bilateral facet and ligamentum flavum hypertrophy resulting in a moderate degree of central and lateral recess stenos is. The neural foramen are patent. L3-4: Disc desiccation is seen. There is a broad based disc bulge with bilateral facet hypertrophy an d ligamentum flavum hypertrophy resulting in a moderate degree of central and lateral recess stenosis . The neural foramen are patent. L4-5: There is grade I anterolisthesis of L4 on L5. There is a broad based central disc protrusion se en compressing the thecal sac resulting in moderate to severe central and severe lateral recess steno sis. There is bilateral facet and ligamentum flavum hypertrophy which adds to the degree of central a nd lateral recess stenosis. There is severe left L4-5 lateral recess stenosis in the upper L5 region due to the encroachment of the left L4-5 facet joint and ligamentum flavum into the left L4-5 and upp er L5 lateral recess. There may be some component of extruded disc material or ligamentum flavum hype rtrophy which extends into the left L5 upper lateral recess. This results in compression of the left L5 nerve root. L5-S1: Bilateral severe facet hypertrophic changes seen. IMPRESSION: 1. L2-3, L3-4 central and lateral recess stenosis. 2. Severe L4-5 central and lateral recess stenosis with critical left L4-5 and upper left L5 lateral recess compression with multiple compression of the left S1 nerve root as it passes through the later al recess. POS: JUAN DANIEL
== END ==
LOC: RAD 07:15
PROVIDERS: ATTEND Neurological Surgery
PROC: B01B1ZZ Fluoroscopy of Spinal Cord using Low Osmolar Contrast (ICD-10-PCS; principal; 2018-08-30)
DX: M54.16 Radiculopathy, lumbar region (principal); M48.061 Spinal stenosis, lumbar region without neurogenic claudication; I10 Essential (primary) hypertension; E11.9 Type 2 diabetes mellitus without complications; I48.91 Unspecified atrial fibrillation; F32.9 Major depressive disorder, single episode, unspecified; E78.00 Pure hypercholesterolemia, unspecified; M19.90 Unspecified osteoarthritis, unspecified site; M81.0 Age-related osteoporosis without current pathological fracture; E07.9 Disorder of thyroid, unspecified; Z79.01 Long term (current) use of anticoagulants; Z79.82 Long term (current) use of aspirin; Z79.899 Other long term (current) drug therapy; Z88.0 Allergy status to penicillin; Z88.1 Allergy status to other antibiotic agents; Z88.5 Allergy status to narcotic agent; Z88.7 Allergy status to serum and vaccine; Z98.84 Bariatric surgery status; Z95.1 Presence of aortocoronary bypass graft
CPT/HCPCS: 62304; 72132; Q9966

== ENCOUNTER 2018-09-09 09:38 | Inpatient (IN) | payer MEDICARE, BC ==
[2018-09-09] MEDS ORDERED: Ondansetron ODT 4 MG TAB SL PRN (10:00)
[2018-09-09] MEDS ORDERED: Sodium Chloride 0.9% 1,000 ML IV SCH (10:00)
[2018-09-09] MEDS ORDERED: Ondansetron PF 4 MG/2 ML Vial IVP PRN ×2 (10:00→14:00)
[2018-09-09] MEDS ORDERED: Morphine 4 MG/ML VIAL SLOW IVP PRN (13:26)
[2018-09-09] MEDS: Morphine 4 MG/ML VIAL SLOW IVP PRN ×2 (13:57→17:50)
[2018-09-09] MEDS ORDERED: Dextrose 50% Abboject 50 ML SYRINGE SLOW IVP PRN (14:00)
[2018-09-09] MEDS ORDERED: Dextrose 5% in Water 1,000 ML IV PRN (14:00)
[2018-09-09] MEDS ORDERED: hydrALAZINE 20 MG/ML VIAL SLOW IVP PRN (14:00)
[2018-09-09] MEDS ORDERED: HumaLOG 300 UNITS/3 ML VIAL SC PRN ×2 (14:00)
[2018-09-09 15:03] LABS: ALT (SGPT) 8 U/L (8-55); AST (SGOT) 16 U/L (5-34); Albumin 3.5 g/dL (3.4-4.8); Alkaline Phosphatase 74 U/L (40-150); Bilirubin, Total 0.6 mg/dL (0.2-1.2); Protein, Total 5.9 g/dL (6.0-8.3)
[2018-09-09 15:09] LABS: Bilirubin, Direct 0.3 mg/dL (0.1-0.3)
[2018-09-09] MEDS: Dextrose 5 % And 0.9 % NaCl 1,000 ML IV SCH (15:25)
--- NOTE | 2018-09-09 16:18 | HP ---
PRIMARY CARE PHYSICIAN: Fernando Barriga MD CHIEF COMPLAINT: Belly pain. HISTORY OF PRESENT ILLNESS: Ms. Ang is a pleasant 73-year-old female, who has a history of a gastric sleeve back in 2013. She was in her usual state of health until around 9 p.m. yesterday. She says she started feeling uncomfortable and basically generally feeling bad. She says that then she started having vomiting. She says after that she started having some severe sharp abdominal pain primarily in the mid abdomen area. She rated it about an 8 to 9/10. She says that she tried taking some Zofran and some Pepto-Bismol in order to help, but got no relief. She initially said that after she vomited, she felt better, but then the pain and nausea would return in about 30 minutes. The pain did not radiate anywhere and she denied having any hematemesis. There was no melena, no bright red blood per rectum, and she says her last bowel movement was yesterday. She says it was loose, but she says that is her usual situation as she is on iron and it was not different from her previous bowel movements. She denies any fever. She denies any sick contacts. She did say she had some night sweats, where she sweated up her entire gown and had some chills, but otherwise no known any infectious contacts. She says that she has had symptoms like this before. It was attributed to a small bowel obstruction. One time it resolved on its own more recently, but prior to that she had to have surgery in order to for it to be resolved. She was evaluated in the ER. She had some lab work done as well as a CT scan of the abdomen. The CT scan of the abdomen was consistent with small bowel obstruction and she is being admitted for this. REVIEW OF SYSTEMS: All systems were reviewed and are negative except for that mentioned in the history of present illness except for 1 episode, where she had some difficulty breathing and had some urinary urgency. PAST MEDICAL HISTORY: She has a history of atrial fibrillation, hypertension, diabetes mellitus type 2, and depression. PAST SURGICAL HISTORY: She has had a gastric sleeve back in 2013, a ventricular demand pacemaker placed, thyroidectomy in 1991, hernia repair 30 years ago, cholecystectomy as well as surgery for kidney stone removal. FAMILY HISTORY: Significant for coronary artery disease in her father, who at age 54 and diabetes mellitus as well. ALLERGIES: TO KEFLEX, CIPRO, PENICILLIN, AND TETANUS TOXOID. SOCIAL HISTORY: She is a nonsmoker and nondrinker. She is for 39 years and she would like to be a full code. CURRENT MEDICATIONS: Include; 1. Aspirin 81 mg daily. 2. Crestor 10 mg daily. 3. Valsartan 80 mg daily. 4. Diltiazem CD 180 mg daily. 5. Eliquis 5 mg twice daily. 6. Propafenone 225 mg daily. 7. Synthroid 125 mcg daily. 8. Sertraline 25 mg daily. 9. Gabapentin 300 mg twice daily. 10. Iron sulfate 325 mg twice a day. PHYSICAL EXAMINATION: GENERAL: She is alert and oriented. She appears to be in no acute distress. She is well developed and well nourished, and she is cooperative. VITAL SIGNS: Blood pressure is 118/61, heart rate 70, respiratory rate of 18, and temperature is 98.9. HEENT: Her pupils are equal, round, and reactive to light and accommodation. Extraocular muscles are intact. Her sclerae are anicteric. THROAT: There is no erythema. No exudates. NECK: On her neck, she had either bilateral bruits or conducted murmur. There was no adenopathy; however. LUNGS: Clear to auscultation. There was no wheezing. No rales. No rhonchi. CARDIOVASCULAR: She had a normal S1 and S2. She had an intermittent S3. There is no S4. She did have a grade 2 to 3/6 systolic murmur radiating to the carotids. ABDOMEN: Obese. It is soft. She did have some mid epigastric to left upper quadrant tenderness. There was no rebound. No guarding. No organomegaly. EXTREMITIES: On her extremities, there was no clubbing or cyanosis. No edema. No calf tenderness. No obvious joint effusions. NEUROLOGIC: It is grossly nonfocal. SKIN AND INTEGUMENT: On her skin and integument, there are no skin changes. No rashes. LABORATORY DATA: On her lab results, she had a CBC; the white blood cell count was 7.2, hemoglobin 13.3, hematocrit was 41.9, and platelet count was 200. Sodium was 143, potassium 3.8, chloride is 108, CO2 is 23, BUN of 11, creatinine 0.73, and glucose is 144. She had a lactic acid of 1.7 and calcium of 10.1. She had a bilirubin of 0.8. She had a CT scan of the abdomen, which is reported as being consistent with a small bowel obstruction. ASSESSMENT AND PLAN: 1. This is a pleasant 73-year-old female, who has a history of hypertension as well as diabetes, who presents with the sudden onset of abdominal pain as well as nausea and vomiting. She has had previous small bowel obstructions in the past and her symptoms are very similar to her previous episodes. She also has radiographic evidence to support this via the CT scan. Therefore, its highest on the differential is a small bowel obstruction. She could have other etiologies as well, but are less likely, but still would need to be ruled out. Her abdominal pain is in the epigastric region and it does not appear she had a lipase on this admission, so we will go ahead and get a serum lipase to rule out pancreatitis, although that is less likely. She could have peptic ulcer disease, again less likely. However, we will be placing her on IV proton pump inhibitor and we will consult General Surgery as well. Therefore for the small bowel obstruction, she will be placed on bowel rest. An NG tube has already been placed to decompress the stomach and for her comfort. She will be placed on IV fluids as well as IV antiemetics and IV pain medications and hopefully, this will resolve on its own. Once again, we will get a serum lipase just to make sure that there is no other potential etiology involved as well. 2. Atrial fibrillation. Currently, her heart rate is under control. We will monitor this closely. She had been on Eliquis for stroke prevention. Since she is n.p.o., we will need to bridge her with Lovenox. 3. Diabetes mellitus. While she is n.p.o., we will treat her with a sliding scale only. 4. Given her history of thyroid disease, we will go ahead and check a TSH. However, clinically, she appears to be euthyroid. Otherwise, further treatment will be based on the patient's clinical course. Job ID: [id number]
[2018-09-09] MEDS: Enoxaparin Sodium 80 MG/0.8 ML SYRINGE SC SCH (20:35)
[2018-09-09] MEDS ORDERED: Enoxaparin Sodium 60 MG/0.6 ML SYRINGE SC SCH (21:00)
[2018-09-10] MEDS: Dextrose 5 % And 0.9 % NaCl 1,000 ML IV SCH ×3 (01:35→20:09)
[2018-09-10] MEDS: Morphine 4 MG/ML VIAL SLOW IVP PRN ×2 (01:35→11:38)
[2018-09-10 07:34] LABS: Hemoglobin 10.7 g/dL (12.0-16.0); Mean Corpuscular HGB CONC 31.5 g/dL (32.0-36.0); Mean Corpuscular Hemoglobin 28.9 pg (27.0-31.0); Mean Corpuscular Volume 91.6 fL (78.0-98.0); Mean Platelet Volume 8.6 fL (7.4-10.4); Platelet Count 116 thou/uL (130-400); RBC Distribution Width 14.1 % (11.5-14.5); White Blood Cell (WBC) Count 5.1 thou/uL (4.8-10.8)
[2018-09-10 07:35] LABS: Anion Gap 7 mmol/L (10-20); BUN (Urea Nitrogen) 8 mg/dL (9.8-20.1); Calc. Creatinine Clearance 114 mL/min (70-130); Calcium 8.4 mg/dL (7.8-10.44); Carbon Dioxide 25 mmol/L (23-31); Chloride 113 mmol/L (98-107); Estimated GFR-MDRD Greater than 90; Glucose 99 mg/dL (83-110); Potassium 3.3 mmol/L (3.5-5.1); Sodium 142 mmol/L (136-145)
[2018-09-10] MEDS: Enoxaparin Sodium 80 MG/0.8 ML SYRINGE SC SCH ×2 (08:56→20:04)
[2018-09-10] MEDS: Pantoprazole 40 MG VIAL IVP SCH (08:56)
[2018-09-10 09:04] LABS: #Eosinphils 0.1 thou/uL (0.0-0.7); #Lymphocytes 1.7 thou/uL (1.20-3.40); #Monocytes 0.6 thou/uL (0.11-0.59); #Neutrophils 2.6 thou/uL (1.40-6.50); %Basophils 0.7 % (0.0-1.0); %Eosinophils 1.4 % (0.0-10.0); %Lymphocytes 33.2 % (21.0-51.0); %Monocytes 12.6 % (0.0-10.0); %Neutrophils 52.1 % (42.0-75.0); Hypochromia SLIGHT = 6-15 cells (100X) (0-5/hpf); Large Platelets SLIGHT; MDiff Complete? YES; Microcytosis MODERATE=15-30 cells (100X) (0-5/hpf); Platelet Morphology Comment Appears Decreased; Polychromasia SLIGHT = 2-3 cells (100X) (0-2/hpf)
--- NOTE | 2018-09-10 09:54 | CON ---
DATE OF CONSULTATION: 09/10/2018 CHIEF COMPLAINT: Small bowel obstruction. HISTORY OF PRESENT ILLNESS: This is a 73-year-old female with a history of a few incisional hernia repairs, who now presents with small bowel obstruction seen on CAT scan, associated with bloating, nausea, and vomiting. She was admitted overnight with an NG tube. She feels improved today, although she states she is not passing any gas. PAST MEDICAL HISTORY: Includes chronic atrial fibrillation, hypertension, diabetes mellitus type 2, and depression. PAST SURGICAL HISTORY: Includes gastric sleeve in 2014, ventricular pacemaker, thyroidectomy, hernia repair, and cholecystectomy. ALLERGIES: CIPRO, PENICILLIN, KEFLEX, AND TETANUS. SOCIAL HISTORY: No smoking. No alcohol. . REVIEW OF SYSTEMS: Otherwise negative. MEDICATIONS: 1. Aspirin. 2. Crestor. 3. Valsartan. 4. Diltiazem. 5. Eliquis. 6. Propafenone. 7. Synthroid. 8. Sertraline. 9. Gabapentin. 10. Iron sulfate. PHYSICAL EXAMINATION: VITAL SIGNS: Blood pressure 170/80, pulse 83, and respirations 12. She is afebrile. NG tube output, only 180 so far. HEENT: Sclerae anicteric. Oropharynx clear. NECK: No lymphadenopathy. CHEST: Clear. HEART: Regular rate. ABDOMEN: Soft. Minimally distended, but very minimally tender diffusely. No guarding or rebound. Occasional bowel sounds present. Well-healed abdominal incisions without obvious hernia. LABORATORY DATA: Today white count is 5, hemoglobin is 10, and platelet count is 116. Creatinine 0.56. ASSESSMENT: Small bowel obstruction, likely secondary to previous surgery for hernia and adhesions. PLAN: Gastrografin small-bowel follow-through today. Dr. Amaya returns tomorrow. Job ID: [id number]
[2018-09-10] MEDS ORDERED: Chloraseptic Spray 180 ml Bottle PO PRN (11:51)
[2018-09-10 12:52] VITALS: BMI 33.7
[2018-09-10] MEDS ORDERED: MD-Gastroview 120 ML BOT ONE (14:15)
--- NOTE | 2018-09-10 15:36 | RAD ---
SMALL BOWEL FOLLOW THROUGH: 09/10/2018 PROVIDED CLINICAL HISTORY: Small bowel obstruction. FINDINGS: Water soluble contrast material was given via the patient's enteric catheter. Contrast material was noted progressing through nondilated small bowel, present in the colon at the 30 minute shira. IMPRESSION: No evidence for small bowel obstruction. POS: JUAN DANIEL
--- NOTE | 2018-09-10 19:24 | PDOC.PN ---
- Subjective Encounter Start Date: 09/10/18 Encounter Start Time: 19:20 Subjective: f/u for SBO with current NGT. Feels better overall and no recurrent -: emesis. Gastrograffin performed with contrast moving throughout the -: entire bowel. - Objective Resuscitation Status - Order Detail: 09/09/18 13:54 Resuscitation Status Routine Resuscitation Status: FULL: Full Resuscitation MAR Reviewed: Yes Vital Signs & Weight: Vital Signs (12 hours) Temp Pulse Resp BP Pulse Ox 09/10/18 17:47 99.6 F 82 16 147/80 H 95 09/10/18 11:25 99 F 91 18 156/87 H 97 09/10/18 07:24 99 F 83 12 172/80 H 94 L Weight Weight 172 lb 15.948 oz I&O: 09/09/18 09/10/18 09/11/18 06:59 06:59 06:59 Intake Total 1468 1200 Output Total 180 200 Balance 1288 1000 Result Diagrams: 09/10/18 07:15 09/10/18 07:15 Additional Labs: Accuchecks 09/10/18 09/10/18 09/10/18 17:47 12:01 05:43 POC Glucose 104 84 110 09/09/18 23:22 POC Glucose 109 Radiology Reviewed by me: Yes (SBFT - neg for obstruction) Phys Exam - Physical Examination Constitutional: NAD NGT in place in nares HEENT: PERRLA, sclera anicteric Neck: no nodes, no JVD, supple, full ROM Respiratory: no wheezing, no rales, no rhonchi, clear to auscultation bilateral S1, S2 Cardiovascular: RRR, no significant murmur, no rub, gallop mild distention Gastrointestinal: soft, non-tender, positive bowel sounds Musculoskeletal: no edema, pulses present Neurological: normal sensation, moves all 4 limbs Psychiatric: A&O x 3 Skin: normal turgor, cap refill <2 seconds Dx/Plan (1) Small bowel obstruction Code(s): K56.609 - UNSP INTESTNL OBST, UNSP TO PARTIAL VERSUS COMPLETE OBST Status: Acute Comment: Improving clinically, continue NGT LIWS and likely d/ c in am (2) Nausea & vomiting Code(s): R11.2 - NAUSEA WITH VOMITING, UNSPECIFIED Status: Acute Comment: Continue NGT, Zofran IV prn (3) Hypokalemia Code(s): E87.6 - HYPOKALEMIA Status: Acute Comment: KCL supplementation, serial K+ monitoring (4) Chronic anticoagulation Code(s): Z79.01 - ME[employer] (CURRENT) USE OF ANTICOAGULANTS Status: Chronic Comment: Continue Lovenox bridging until able to take Eliquis po (5) Chronic atrial fibrillation Code(s): I48.2 - CHRONIC ATRIAL FIBRILLATION Status: Chronic Comment: Rate controlled, resume Cartia XT and Rythmol - Plan 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
[2018-09-11] MEDS: Dextrose 5 % And 0.9 % NaCl 1,000 ML IV SCH ×2 (05:48→16:37)
[2018-09-11] MEDS: Pantoprazole 40 MG VIAL IVP SCH (08:45)
[2018-09-11] MEDS: Enoxaparin Sodium 80 MG/0.8 ML SYRINGE SC SCH ×2 (09:57→20:51)
[2018-09-11] MEDS: Morphine 4 MG/ML VIAL SLOW IVP PRN (09:57)
--- NOTE | 2018-09-11 20:00 | PDOC.PN ---
- Subjective Encounter Start Date: 09/11/18 Encounter Start Time: 16:15 Subjective: f/u for SBO managed conservatively. Advancing to full liquids with -: some nausea this pm. Ambulated short distances. + mild flatus -: Some abd cramping and pain in LLQ - Objective Resuscitation Status - Order Detail: 09/09/18 13:54 Resuscitation Status Routine Resuscitation Status: FULL: Full Resuscitation MAR Reviewed: Yes Vital Signs & Weight: Vital Signs (12 hours) Temp Pulse Resp BP Pulse Ox 09/11/18 11:44 98.8 F 74 16 170/83 H 97 09/11/18 08:05 98.9 F 75 16 183/81 H 96 Weight Weight 172 lb 15.948 oz I&O: 09/10/18 09/11/18 09/12/18 06:59 06:59 06:59 Intake Total 1468 2320 Output Total 180 350 Balance 1288 1970 Result Diagrams: 09/10/18 07:15 09/10/18 07:15 Additional Labs: Accuchecks 09/11/18 09/11/18 09/11/18 18:46 12:11 05:39 POC Glucose 100 107 92 09/10/18 23:25 POC Glucose 89 Phys Exam - Physical Examination Constitutional: NAD HEENT: PERRLA, sclera anicteric, oral pharynx no lesions Neck: no nodes, no JVD, supple, full ROM Respiratory: no wheezing, no rales, no rhonchi, clear to auscultation bilateral S1, S2 Cardiovascular: RRR, no significant murmur, no rub, gallop mild TTP in FEROZ/LLQ Gastrointestinal: soft, no distention, positive bowel sounds Musculoskeletal: no edema, pulses present Neurological: normal sensation, moves all 4 limbs Psychiatric: A&O x 3 Skin: normal turgor, cap refill <2 seconds Dx/Plan (1) Small bowel obstruction Code(s): K56.609 - UNSP INTESTNL OBST, UNSP TO PARTIAL VERSUS COMPLETE OBST Status: Acute Comment: Improving clinically, advancing to liquid diet but recurrence of nausea, slow diet advancement, serial monitoring (2) Nausea & vomiting Code(s): R11.2 - NAUSEA WITH VOMITING, UNSPECIFIED Status: Acute Comment: Intermittent after resuming po intake, Zofran IV prn (3) Hypokalemia Code(s): E87.6 - HYPOKALEMIA Status: Acute Comment: KCL supplementation, serial K+ monitoring (4) Chronic anticoagulation Code(s): Z79.01 - ALF (CURRENT) USE OF ANTICOAGULANTS Status: Chronic Comment: Continue Lovenox bridging until able to take Eliquis po (5) Chronic atrial fibrillation Code(s): I48.2 - CHRONIC ATRIAL FIBRILLATION Status: Chronic Comment: Rate controlled, resume Cartia XT and Rythmol - Plan 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, social staff worker, out of bed/ambulate, DVT proph w/SCDs Stable currently -: Continue D5NS @100ml/h -: OOB/ambulate -: Zofran PRN -: Hold d/c another 24h and likely home in am * .
[2018-09-12] MEDS: Dextrose 5 % And 0.9 % NaCl 1,000 ML IV SCH ×2 (03:25→11:44)
--- NOTE | 2018-09-12 03:49 | DIS ---
DATE OF ADMISSION: 09/09/2018 DATE OF DISCHARGE: 09/11/2018 ADMISSION DIAGNOSIS: Small bowel obstruction. DISCHARGE DIAGNOSIS: Small bowel obstruction, resolved. ADMISSION HISTORY: The patient is a 73-year-old white female, well known to myself. She has had several prior abdominal operations, including a sleeve gastrectomy. She presented with nausea, vomiting, and lightheadedness. She had findings consistent with a small bowel obstruction. Small bowel follow-through was performed yesterday and the contrast passed rapidly and she had multiple bowel movements. She apparently had some nausea after the procedure, therefore a nasogastric tube was not removed. This morning, it was removed and she started on clear liquid diet. She has tolerated this well. She is discharged home at this time to remain on a liquid diet for 48 hours and may advance to a regular diet thereafter. I have instructed to resume all preop medications with no new discharge medications. I will see her regarding this in the future on a p.r.n. basis. I have instructed her to follow up with me as previously scheduled in regard to her bariatric surgery. Job ID: [id number]
[2018-09-12 04:47] VITALS: TEMP 98.8
[2018-09-12] MEDS: Morphine 4 MG/ML VIAL SLOW IVP PRN (08:58)
[2018-09-12] MEDS: Pantoprazole 40 MG VIAL IVP SCH (08:59)
[2018-09-12] MEDS: Enoxaparin Sodium 80 MG/0.8 ML SYRINGE SC SCH (08:59)
--- NOTE | 2018-09-12 10:46 | DIS ---
DATE OF ADMISSION: 09/09/2018 DATE OF DISCHARGE: 09/12/2018 DISCHARGE DIAGNOSES: 1. Partial small bowel obstruction, resolving. 2. Nausea and vomiting secondary to number #1, resolved. 3. Hypokalemia, resolved. 4. Chronic anticoagulation with Eliquis. 5. Chronic atrial fibrillation, rate controlled. CONSULTATIONS: Dr. Strauss and Dr. Amaya with General Surgery Service. PERTINENT LAB AND X-RAY FINDINGS: Potassium ranged between 3.3 to 3.8. LFTs within normal limits. Lipase less than 4. Hemoglobin 10.7, hematocrit 34, platelet count 116. CT of the abdomen and pelvis dated 09/09/2018 showed small bowel obstruction. Gastrografin small bowel follow-through dated 09/10/2018 showed no evidence for small-bowel obstruction. HOSPITAL COURSE: The patient was initially admitted after presenting with increased abdominal pain with associated nausea and vomiting. The patient initially managed with Zofran and Pepto-Bismol without relief. The patient underwent evaluation including CT imaging of the abdomen and pelvis showing evidence of a small-bowel obstruction. The patient was initially placed on NG tube to low intermittent wall suctioning and n.p.o. status. The patient was also given proton pump inhibitor and IV pain medication. The patient clinically improved with supportive management in conjunction with evaluation by the General Surgery Service. NG tube was subsequently discontinued and small bowel follow-through was performed showing no evidence of small bowel obstruction. The patient tolerated clear liquids, advancing to full liquids without recurrence of symptoms. Overall, the patient did remain clinically stable during the hospital course with recommendations for conservative management. I have examined the patient at the time of discharge and discussed followup instructions. The patient overall clinically stable and ready for discharge on 09/12/2018. DISCHARGE MEDICATIONS: 1. Enteric-coated aspirin 81 mg p.o. daily. 2. Cartia XT 180 mg p.o. daily. 3. Ferrous sulfate 325 mg p.o. b.i.d. 4. Gabapentin 300 mg p.o. b.i.d. 5. Hydralazine 20 mg p.o. b.i.d. 6. Levothyroxine 125 mcg p.o. daily. 7. Olmesartan 40 mg p.o. daily. 8. Rythmol 150 mg p.o. t.i.d. 9. Crestor 20 mg p.o. at bedtime. 10. Zoloft 25 mg p.o. daily. 11. Eliquis 5 mg p.o. b.i.d. FOLLOWUP: The patient is to follow up with her primary care provider, Dr. Fernando Barriga. The patient will follow up with Dr. Amaya with General Surgery Service and to call the office for appointment time and date. CONDITION ON DISCHARGE: Stable. ACTIVITY: Ad-lucina. DIET: Heart healthy. CODE STATUS: Full. DISPOSITION: To home, 09/12/2018. Job ID: [id number]
[2018-09-12 12:30] VITALS: BP 138/74
== END 2018-09-12 13:58 | disposition home or self-care (01) | DRG 390 ==
LOC: ERS 09:38 → SURG A 12:39
PROVIDERS: ADMIT Internal Medicine; ATTEND Internal Medicine
DX: K56.600 Partial intestinal obstruction, unspecified as to cause (principal); I10 Essential (primary) hypertension; E11.9 Type 2 diabetes mellitus without complications; F32.9 Major depressive disorder, single episode, unspecified; E03.9 Hypothyroidism, unspecified; I25.10 Atherosclerotic heart disease of native coronary artery without angina pectoris; E87.6 Hypokalemia; I48.2 Chronic atrial fibrillation; Z98.84 Bariatric surgery status; Z95.0 Presence of cardiac pacemaker; Z90.89 Acquired absence of other organs; Z90.49 Acquired absence of other specified parts of digestive tract; Z98.890 Other specified postprocedural states; Z88.0 Allergy status to penicillin; Z88.1 Allergy status to other antibiotic agents; Z88.7 Allergy status to serum and vaccine; Z79.82 Long term (current) use of aspirin; Z79.01 Long term (current) use of anticoagulants; Z79.899 Other long term (current) drug therapy
CPT/HCPCS: 36415; 36416; 74250; 80048; 83690; 85025; 96360; 96361; C9113; J1650; J2270; J2405; Q9963

== ENCOUNTER 2018-10-04 01:42 | Outpatient (CLI) | payer MEDICARE, BC ==
[2018-10-04 10:31] LABS: #Basophils 0.1 thou/uL (0.0-0.2); #Lymphocytes 1.4 thou/uL (1.20-3.40); #Monocytes 0.7 thou/uL (0.11-0.59); #Neutrophils 7.6 thou/uL (1.40-6.50); %Basophils 0.6 % (0.0-1.0); %Eosinophils 0.1 % (0.0-10.0); %Lymphocytes 14.6 % (21.0-51.0); %Monocytes 7.1 % (0.0-10.0); %Neutrophils 77.5 % (42.0-75.0); Hemoglobin 12.3 g/dL (12.0-16.0); Mean Corpuscular HGB CONC 31.9 g/dL (32.0-36.0); Mean Corpuscular Volume 90.8 fL (78.0-98.0); Mean Platelet Volume 8.2 fL (7.4-10.4); Platelet Count 204 thou/uL (130-400); RBC Distribution Width 14.1 % (11.5-14.5); Red Blood Cell (RBC) Count 4.25 mill/uL (4.20-5.40); White Blood Cell (WBC) Count 9.8 thou/uL (4.8-10.8)
[2018-10-04 10:52] LABS: Anion Gap 11 mmol/L (10-20); BUN (Urea Nitrogen) 15 mg/dL (9.8-20.1); Calc. Creatinine Clearance 0 mL/min (70-130); Calcium 9.5 mg/dL (7.8-10.44); Carbon Dioxide 28 mmol/L (23-31); Chloride 106 mmol/L (98-107); Estimated GFR-MDRD 90; Glucose 111 mg/dL (83-110); Potassium 3.8 mmol/L (3.5-5.1); Sodium 141 mmol/L (136-145)
== END 2018-10-04 01:43 | disposition home or self-care (01) ==
LOC: LABBT 01:42
PROVIDERS: ATTEND Neurological Surgery
DX: Z01.818 Encounter for other preprocedural examination (principal); M48.061 Spinal stenosis, lumbar region without neurogenic claudication
CPT/HCPCS: 80048; 85025; 93005; 93010

== ENCOUNTER 2018-10-11 08:08 | Observation (INO) | payer MEDICARE, BC ==
[2018-10-04 09:23] VITALS: BMI 33.0
--- NOTE | 2018-10-10 22:51 | HP ---
HISTORY OF PRESENT ILLNESS: Ms. Ang is a 73-year-old woman, here today for evaluation of severe left-sided L5 pain and to a lesser extent S1 pain since the left total knee replacement in April of 2018. She reports during the hospital postoperatively, the pain started to develop. In addition, she experiences tingling and numbness in the same distribution. She has treated this with physical therapy and medications since early April, those have been resolved. Currently, she is using a walker to assist her mobility secondary to recovering from total knee replacement as well as this current pain. CT and myelogram from the [facility] reveals severe central canal stenosis at L4-5 that can certainly fit her symptoms. This is followed by a facet and ligamentous hypertrophy as well as grade 1 slip at this level. REVIEW OF SYSTEMS: Denies fever or chills. Denies shortness of breath, cough, or hemoptysis. Reports back and leg pain and numbness and tingling. ALLERGIES: PENICILLIN, KEFLEX, TETANUS, CODEINE, AND CIPRO. PAST MEDICAL HISTORY: Significant for chronic pain syndrome, hypercholesterolemia, diabetes, depression, headaches, coronary artery disease, hypertension, osteoporosis, and thyroid disease. CURRENT MEDICATIONS: Unassessed. PHYSICAL EXAMINATION: GENERAL: The patient is alert and oriented x3. Gait is profoundly antalgic, utilizing walker. EXTREMITIES: Left lower extremity straight leg raise is positive. Right lower extremity straight leg raise is negative. Pain limited the examination secondary to strength, so I am unable to obtain reliable measurement of her leg strength, but she is able to ambulate just with assistance. Mild sensory disturbance along the L5 dermatome to left lower extremity. ASSESSMENT: Lumbar spinal stenosis with radiculopathy. PLAN: Dr. Fine met with the patient, reviewed imaging, advocated for left-sided L4-5 decompression without fusion. He explained to the patient the risks, benefits, and alternatives to the procedure. The patient expressed understanding and elected to move forward with surgery as discussed. I do believe the patient is mentally competent capable of making medical decisions for herself. We will move forward with surgery as planned. Job ID: [id number]
[2018-10-11] MEDS ORDERED: Thrombin 5000 UNITS/5 ML VIAL ONE (09:17)
[2018-10-11] MEDS ORDERED: Bupivacaine HCl 0.5%/Epinephrine 1:200,000/PF 30 ml Vial ONE (09:17)
[2018-10-11] MEDS ORDERED: Fentanyl 100 MCG/2 ML VIAL ONE ×4 (09:47→14:26)
[2018-10-11] MEDS ORDERED: Clindamycin/D5W 900 mg/50 ml Premix Bag ONE (09:51)
[2018-10-11] MEDS ORDERED: Scopolamine 1.5 mg/72 hour Patch ONE (09:53)
[2018-10-11] MEDS ORDERED: Sodium Chloride For Inhalation 0.9% 3 ML NEB ONE ×2 (11:49→12:42)
[2018-10-11] MEDS ORDERED: Ondansetron HCl/PF 4 MG/2 ML Vial IVP PRN (12:00)
[2018-10-11] MEDS ORDERED: Promethazine HCl 25 MG/ML VIAL IM/IV PRN (12:00)
[2018-10-11] MEDS ORDERED: Non-Formulary Medication 1 EACH PO PRN (14:22)
[2018-10-11] MEDS ORDERED: diphenhydrAMINE 50 MG/ML VIAL IVP PRN (14:23)
[2018-10-11] MEDS ORDERED: Acetaminophen 325 MG TAB PO PRN (14:23)
[2018-10-11] MEDS ORDERED: Mag-Al 1200 mg/1200 mg/30 ML UDCUP PO PRN (14:23)
[2018-10-11] MEDS ORDERED: diphenhydrAMINE 25 MG CAP PO PRN (14:23)
[2018-10-11] MEDS ORDERED: Acetaminophen 650 MG Suppository PR PRN (14:23)
[2018-10-11] MEDS ORDERED: Acetaminophen/Codeine 30-300mg Tablet PO PRN ×2 (14:23)
[2018-10-11] MEDS ORDERED: tiZANidine HCl 4 MG TAB PO PRN (14:23)
[2018-10-11] MEDS ORDERED: Bisacodyl 10 MG SUPP PR PRN (14:23)
[2018-10-11] MEDS ORDERED: Morphine 2 MG/ML SYRINGE SLOW IVP PRN (14:24)
[2018-10-11] MEDS ORDERED: Ondansetron PF 4 MG/2 ML Vial IM PRN (14:25)
[2018-10-11] MEDS ORDERED: HYDROmorphone 2 MG/ML VIAL ONE (14:26)
[2018-10-11] MEDS: Sodium Chloride 0.9% 1,000 ML IV SCH (15:50)
[2018-10-11] MEDS ORDERED: Ondansetron PF 4 MG/2 ML Vial ONE (16:10)
[2018-10-11] MEDS ORDERED: Dexamethasone 20 MG/5 ML VIAL ONE (16:10)
[2018-10-11] MEDS ORDERED: Rocuronium Bromide 10 MG/ML (10ML VIAL) ONE (16:10)
[2018-10-11] MEDS ORDERED: Lidocaine 1% PF 5 ML VIAL ONE (16:10)
[2018-10-11] MEDS ORDERED: Glycopyrrolate 0.2 MG/ML 5 ML SYRINGE ONE (16:10)
[2018-10-11] MEDS ORDERED: PROPOFOL 200 MG/20 ML VIAL ONE (16:10)
[2018-10-11] MEDS ORDERED: PHENYLEPHRINE-NS 100 MCG/ML 10 ML SYRINGE ONE (16:10)
[2018-10-11] MEDS: Morphine 4 MG/ML VIAL SLOW IVP PRN ×2 (17:12→22:26)
--- NOTE | 2018-10-11 17:51 | OP ---
DATE OF PROCEDURE: 10/11/2018 DRAMA TEACHER: Toan Bullock PA-C INDICATION: Pain. DIAGNOSIS: Lumbar radiculopathy. PROCEDURES PERFORMED: Left L4-L5 hemilaminectomy, medial facetectomy, and decompression. ANESTHESIA: General. DESCRIPTION OF PROCEDURE: The patient was brought into the operating room and placed under general anesthesia. She was flipped from the supine to prone position on the operating room table. A linear incision was planned over the L4-L5 segment. After prepping and draping and after an appropriate preoperative pause, the incision was created. The underlying soft tissues were swept left of midline. A self-retaining retractor was placed in the wound for optimal exposure. After confirming the appropriate level of C-arm fluoroscopy, high-speed cutting drill bit was used to perform a hemilaminectomy along the inferior aspect of L4 and the superior aspect of L5. The laminectomy was extended laterally to encompass the medial aspect of the facet joint, where the lateral recesses were well decompressed. The exiting L4 and descending L5 nerve roots were identified and found to be well decompressed. The L4 disc was palpated and found not to be a significant factor in the lateral recess stenosis and therefore, diskectomy was not performed. The wound was irrigated. Hemostasis was maintained throughout. The wound was then closed in anatomic layers and a pressure dressing was applied. There were no known procedural complications. Job ID: [id number]
[2018-10-12] MEDS: Morphine 4 MG/ML VIAL SLOW IVP PRN ×3 (04:00→12:12)
[2018-10-12] MEDS: Sodium Chloride 0.9% 1,000 ML IV SCH (04:43)
[2018-10-12] MEDS ORDERED: Levothyroxine Sodium 125 MCG TAB PO SCH (06:00)
[2018-10-12] MEDS: Propafenone HCl 150 MG TAB PO SCH ×2 (08:36→14:30)
[2018-10-12] MEDS ORDERED: Ferrous Sulfate 325 MG TAB PO SCH (09:00)
[2018-10-12] MEDS ORDERED: Gabapentin 300 MG CAP PO SCH (09:00)
[2018-10-12] MEDS ORDERED: hydrALAZINE 10 MG TAB PO SCH (09:00)
[2018-10-12 12:01] VITALS: BP 132/68; TEMP 97.8
[2018-10-12] MEDS ORDERED: Rosuvastatin 20 MG TAB PO SCH (21:00)
== END 2018-10-12 15:40 | disposition home or self-care (01) ==
LOC: SDC 08:08 → SJJU 13:55
PROVIDERS: ADMIT Neurological Surgery; ATTEND Neurological Surgery
PROC: 01NB0ZZ Release Lumbar Nerve, Open Approach (ICD-10-PCS; principal; 2018-10-11)
DX: M54.16 Radiculopathy, lumbar region (principal); M48.061 Spinal stenosis, lumbar region without neurogenic claudication; G89.4 Chronic pain syndrome; E78.00 Pure hypercholesterolemia, unspecified; E11.9 Type 2 diabetes mellitus without complications; F32.9 Major depressive disorder, single episode, unspecified; I25.10 Atherosclerotic heart disease of native coronary artery without angina pectoris; I10 Essential (primary) hypertension; M81.0 Age-related osteoporosis without current pathological fracture; E03.9 Hypothyroidism, unspecified; M85.80 Other specified disorders of bone density and structure, unspecified site; M19.90 Unspecified osteoarthritis, unspecified site; K21.9 Gastro-esophageal reflux disease without esophagitis; Z79.899 Other long term (current) drug therapy; Z88.0 Allergy status to penicillin; Z88.1 Allergy status to other antibiotic agents; Z88.5 Allergy status to narcotic agent; Z88.7 Allergy status to serum and vaccine; Z96.652 Presence of left artificial knee joint; Z86.718 Personal history of other venous thrombosis and embolism
CPT/HCPCS: 63030; 76000; 82962; 94660; 96372; 96374; 96376 ×2; G0378; 36416; J0131; J0670; J1100; J1170; J2001; J2270; J2405; J2704; J3010; J3490; J7620

== ENCOUNTER 2019-02-22 06:15 | Inpatient (IN) | payer MEDICARE, BC ==
[2019-02-22] MEDS ORDERED: Lidocaine 1% (PF) 30 ML VIAL ONE (06:39)
[2019-02-22] MEDS ORDERED: Midazolam HCl 2 mg/2 ml Vial ONE (07:11)
[2019-02-22] MEDS ORDERED: Heparin 10,000 UNITS/1 ML VIAL ONE (07:11)
[2019-02-22] MEDS ORDERED: Fentanyl 100 MCG/2 ML VIAL ONE (07:11)
[2019-02-22] MEDS ORDERED: Protamine Sulfate 50 MG/5 ML VIAL ONE (08:23)
[2019-02-22] MEDS ORDERED: Sodium Chloride 0.9% 200 ML IV PRN (08:32)
[2019-02-22] MEDS ORDERED: Acetaminophen/Codeine 30-300mg Tablet PO PRN ×2 (08:32)
[2019-02-22] MEDS ORDERED: Nitroglycerin 0.4 MG TAB (25 Tab Bottle) SL PRN (08:32)
[2019-02-22] MEDS ORDERED: Sodium Chloride 0.9% 1,000 ML IV SCH (08:45)
[2019-02-22] MEDS: Propafenone HCl 150 MG TAB PO SCH ×2 (15:06→21:17)
[2019-02-22 15:31] VITALS: BMI 34.4
[2019-02-22] MEDS ORDERED: Iopamidol 370 76% 100 ML VIAL ONE (17:06)
[2019-02-22] MEDS ORDERED: Iopamidol 370 76% 50 ML VIAL FS ONE (17:06)
--- NOTE | 2019-02-22 17:39 | EKG ---
Test Reason : PREOP Blood Pressure : / mmHG Vent. Rate : 085 BPM Atrial Rate : 070 BPM P-R Int : 000 ms QRS Dur : 162 ms QT Int : 266 ms P-R-T Axes : 072 101 -54 degrees QTc Int : 316 ms Normal sinus rhythm Electronic ventricular pacemaker Abnormal ECG Confirmed by KLEBER DAVID ([id number]) on 02/22/2019 5:39:16 PM Referred By: FRANK Confirmed By:KLEBER DAVID
--- NOTE | 2019-02-22 21:15 | ULT ---
Carotid duplex sonogram HISTORY: Vascular disease. Aortic valve stenosis. FINDINGS: Plaque at the carotid bulb. Color and spectral Doppler evaluation, peak systolic velocity o f 79 cm/s, and IC to CC ratio of 0.8 suggest no hemodynamically significant stenosis within the extracranial right ICA. Antegrade flow within the vertebral artery. Left: Mild plaque. Color and spectral Doppler evaluation, peak systolic velocity of 79 cm/s, and IC t o CC ratio 1.0 suggest no hematemesis significant stenosis within the extracranial left ICA. Antegrade flow within the vertebral artery. IMPRESSION: Atherosclerosis. No sonographic evidence of significant extracranial ICA stenosis.
[2019-02-22] MEDS: hydrALAZINE 10 MG TAB PO SCH (21:17)
[2019-02-22] MEDS: Calcium Carbonate 500 MG ChewTAB PO SCH (21:17)
[2019-02-22] MEDS: Rosuvastatin 20 MG TAB PO SCH (21:17)
[2019-02-22] MEDS: tiZANidine HCl 4 MG TAB PO PRN (21:22)
[2019-02-22] MEDS: traMADol HCl 50 MG TAB PO PRN (21:23)
--- NOTE | 2019-02-23 03:17 | CON ---
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 She has been feeling somewhat dyspneic with some discomfort in posterior chest with minimal activity over the past 3-4 months. She underwent back surgery about four months ago and did well from that. She had a cardiac echo about 3 weeks ago showing a peak valve gradient of 44 with an estimated area of 0.74. She also had a Lexiscan stress test showing an ejection fraction of 25% with no ST-segment changes as she was in paced rhythm. She had a resting defect in the inferior apical segment, that was partially reversible. Cardiac catheterization today showed 70% mid-right coronary stenosis, perhaps a mild left main that was not clearly significant. She had about a 70% stenosis in an LAD. She had heavily calcified mitral annulus and aortic valve, had an estimated valve area on catheterization of 0.9 with about a 13 mm gradient. PAST MEDICAL HISTORY: Otherwise significant for chronic atrial fibrillation diagnosed about four years ago and required a pacemaker placement. She has a history of diabetes, although has not required medication since having a gastric sleeve. She has hypertension and dyslipidemia. PAST SURGICAL HISTORY: Includes the previously noted pacemaker and gastric sleeve resection about [address] Amaya[address] She has also had carpal tunnel surgeries, lithotripsy, right shoulder surgery, thyroidectomy, tonsillectomy, cholecystectomy, and knee surgery about 1 year ago. She has had the previously noted back surgery this past spring. SOCIAL HISTORY: She works as mentioned four days a week at the [employer] [place]. She is and accompanied by her and granddaughter. REVIEW OF SYSTEMS: She did have some respiratory stridor after her back surgery and was told that her endotracheal tube may have been oversized. She has a history of nausea postoperatively. As mentioned, she has some dyspnea on exertion with no peripheral edema and some neck or back pain with exertion. ALLERGIES: SHE REPORTS ALLERGIES TO CODEINE, PENICILLIN, CEPHALEXIN AND CIPROFLOXACIN. CURRENT MEDICATIONS: Include Eliquis 5 mg b.i.d., Cartia XT 180 a day, Avapro 150 b.i.d., sertraline 25 a day, Nexium p.r.n., Co-Q daily, Lasix 20 mg as needed, hydralazine 10 mg b.i.d., Crestor 20 at bedtime, and propafenone 150 t.i.d. PHYSICAL EXAMINATION: VITAL SIGNS: Height 5 feet, weight 182 pounds, down from a peak weight of about 245. NECK: Bilateral radiated murmur or bruits. CARDIAC EXAM: Harsh systolic murmur across the precordium. Regular rhythm. Pacemaker placed in the left upper chest. ABDOMEN: Full, nontender. EXTREMITIES: She has palpable pedal dorsalis pedis pulse in both feet with no peripheral edema. PLAN: Aortic valve replacement, multi-vessel bypass grafting. We will go ahead and obtain a baseline carotid ultrasound. Job ID: [id number]
[2019-02-23] MEDS: Levothyroxine Sodium 125 MCG TAB PO SCH (05:46)
--- NOTE | 2019-02-23 07:42 | HP ---
HISTORY OF PRESENT ILLNESS: Mrs. Karlee Ang is a 74-year-old white female that I initially evaluated in April 2014. At that time she was referred for preoperative evaluation before gastric sleeve surgery by Dr. Amaya. She complained of some right chest pressure that occurred with pulling a wagon with her right arm. She underwent a Lexiscan Cardiolite testing, which revealed a proximal to distal anterior and apical are of ischemia. She underwent cardiac catheterization, which revealed normal left ventricular function with ejection fraction of 55% to 60%. The proximal LAD was calcified. There was a 20% mid to distal LAD, 20% first diagonal, 20% proximal circumflex. The right coronary artery had an 60% proximal stenosis and 20% mid stenosis. It was felt best to treat her medically. She underwent gastric sleeve surgery with Dr. Amaya without incident. She has continued to be followed in the office after that time. She would continue to have some chest pain which last 1 minute and occur mostly at rest. She would walk 1 mile multiple times per week without any symptoms. In February 2016, she was admitted with a very rapid heart beat and found to be in atrial fibrillation. This was a new sensation for her. She had chest pressure with that, which lasted 18 hours continuously and stopped when she converted to sinus rhythm. Despite 18 hours of continuous chest pressure, cardiac enzymes were unremarkable. She was given intravenous metoprolol and digoxin and was placed on Lovenox. She was placed on Eliquis and Multaq. She could not afford the Multaq and was eventually placed switched to Propafenone 150 TID. On September 03, 2016, she presented to a hospital in [place], where she was visiting with dizziness and near-syncope. She had complete heart block and 2:1 AV block. A dual chamber pacemaker was placed and she has continued to do well. On pacemaker followup, she has episodes of atrial fibrillation; however, they are extremely short lived. She continues on Eliquis. On January 19, 2019, she complained of chest pressure radiating to her back. This would last 2 minutes. At times, she would also feel her heart racing at rest. She underwent a cardiac PET scan which revealed inferoapical ischemia. She also was found to have aortic stenosis on echo. It was recommended she undergo cardiac catheterization. Risks were discussed including , myocardial infarction, CVA, transfusion, limb loss, renal loss, vascular injury, etc. We discussed stenting of her aortic stenosis is not that significant and decision was made to place drug-eluting stent if required. PAST MEDICAL HISTORY: Hypertension, diabetes, hypercholesterolemia, hypothyroidism, coronary artery disease, and history of atrial fibrillation. PAST SURGICAL HISTORY: Pacemaker placement, bilateral carpal tunnel surgery, cholecystectomy, gastric sleeve surgery, section, hernia repair, right shoulder repair, tonsillectomy, I and D of leg cellulitis, lithotripsy, thyroidectomy, and back surgery. MEDICATIONS: Propafenone 150 b.i.d., Crestor 20 daily, hydralazine 10 mg t.i.d. , furosemide 20 mg q.a.m., Co Q 10 200mg qd, Nexium 20 qd, Sertraline 25 qd, Avapro 150 BID, Eliquis 5 mg b.i.d., and Cartia 180 daily. ALLERGIES: Codeine, Penicillin, Cephalexin, Tetanus, Cipro. REVIEW OF SYSTEMS: A 12-point review of systems is otherwise unremarkable. PHYSICAL EXAMINATION: VITAL SIGNS: Blood pressure 140/60 and pulse 75. HEENT: PERRL. NECK: Supple. HEART: S1 and S2 were normal, no S3 or S4. There is 2/6 systolic ejection murmur. ABDOMEN: Normal bowel sounds without tenderness or organomegaly. EXTREMITIES: Revealed no clubbing, cyanosis, or edema. NEUROLOGICAL: Grossly intact. SKIN: Warm and dry. LABORATORY DATA: Pending. IMPRESSION: 1. Abnormal nuclear stress test with inferoapical ischemia. Catheterization has been recommended. 2. Nonrheumatic aortic stenosis. 3. Pacemaker placement while visiting [facility] pacemaker. 4. Paroxysmal atrial fibrillation shsort episodes on pacemaker. 5. Hypercholesterolemia. 6. Hypertension. 7. Diabetes. 8. Obesity, s/p gastric sleeve. PLAN: Mrs. Ang has held [facility] for four days. She will undergo cardiac catheterization. Risks have been discussed as above. Job ID: [id number] [facility]
[2019-02-23] MEDS ORDERED: Losartan 25 MG TAB PO SCH (09:00)
[2019-02-23] MEDS ORDERED: INULIN 2 GM PO SCH (09:00)
[2019-02-23] MEDS: tiZANidine HCl 4 MG TAB PO PRN ×2 (09:22→22:57)
[2019-02-23] MEDS: traMADol HCl 50 MG TAB PO PRN ×2 (09:23→22:57)
[2019-02-23] MEDS: Multivit, Therapeutic 1 TAB PO SCH (09:25)
[2019-02-23] MEDS: Ubidecarenone 50 MG CAP PO SCH (09:27)
[2019-02-23] MEDS: Ascorbic Acid 500 mg Chewable Tablet PO SCH (09:27)
[2019-02-23] MEDS: hydrALAZINE 10 MG TAB PO SCH (09:27)
[2019-02-23] MEDS: Propafenone HCl 150 MG TAB PO SCH ×3 (09:28→20:02)
[2019-02-23] MEDS ORDERED: Sodium Chloride 0.9% 500 ML IV SCH (12:15)
--- NOTE | 2019-02-23 14:17 | PRG ---
DATE OF SERVICE: 02/23/2019 PRIMARY DONKEY RIDE OPERATOR: Dr. Clayton Carter. SUBJECTIVE: Ms. Ang had an episode of severe hypotension after receiving her blood pressure medicines this morning, her pressure dropped to 70 systolic. She is placed in Trendelenburg and given 500 mL of saline. The pressure is now 106 systolic, which is still lower than usual for her. OBJECTIVE: VITAL SIGNS: Pulse is 68. NECK: Veins normal. Carotid, normal upstrokes. LUNGS: Clear. CARDIAC: Normal S1, normal S2. There is aortic stenosis murmur. ABDOMEN: Soft and nontender. EXTREMITIES: There is no edema. ASSESSMENT: 1. Severe aortic stenosis. 2. Coronary artery disease. 3. Episode of hypotension following blood pressure medicines. PLAN: 1. Stop hydralazine. 2. Stop losartan. 3. She has received saline. 4. Probably home tomorrow if stable to be discharged, and bring back in for surgery is the plan according to the note. 5. She cannot tolerate codeine, we will take that off her list. 6. Previously on apixaban, that will be resumed at the time of discharge. Job ID: [id number]
[2019-02-23] MEDS ORDERED: Communication Order-Pharmacy FS SCH (15:03)
[2019-02-23] MEDS: Rosuvastatin 20 MG TAB PO SCH (20:02)
[2019-02-23] MEDS: Calcium Carbonate 500 MG ChewTAB PO SCH (20:02)
[2019-02-24] MEDS ORDERED: Sodium Chloride 0.9% 500 ML IV SCH (00:30)
[2019-02-24] MEDS: Levothyroxine Sodium 125 MCG TAB PO SCH (06:00)
[2019-02-24] MEDS: Ascorbic Acid 500 mg Chewable Tablet PO SCH (08:59)
[2019-02-24] MEDS: Propafenone HCl 150 MG TAB PO SCH ×3 (08:59→20:31)
[2019-02-24] MEDS: Ubidecarenone 50 MG CAP PO SCH (08:59)
[2019-02-24] MEDS: Multivit, Therapeutic 1 TAB PO SCH (08:59)
[2019-02-24] MEDS: Rosuvastatin 20 MG TAB PO SCH (20:31)
[2019-02-24] MEDS: Calcium Carbonate 500 MG ChewTAB PO SCH (20:31)
[2019-02-25] MEDS: Levothyroxine Sodium 125 MCG TAB PO SCH (05:12)
[2019-02-25] MEDS: traMADol HCl 50 MG TAB PO PRN ×2 (06:15→21:12)
[2019-02-25] MEDS: tiZANidine HCl 4 MG TAB PO PRN ×2 (06:19→21:12)
[2019-02-25] MEDS: Ascorbic Acid 500 mg Chewable Tablet PO SCH (09:36)
[2019-02-25] MEDS: Ubidecarenone 50 MG CAP PO SCH (09:37)
[2019-02-25] MEDS: Propafenone HCl 150 MG TAB PO SCH ×3 (09:38→21:05)
[2019-02-25] MEDS: Multivit, Therapeutic 1 TAB PO SCH (09:38)
[2019-02-25] MEDS: Calcium Carbonate 500 MG ChewTAB PO SCH (21:05)
[2019-02-25] MEDS: Rosuvastatin 20 MG TAB PO SCH (21:05)
[2019-02-26] MEDS: Levothyroxine Sodium 125 MCG TAB PO SCH (05:47)
[2019-02-26] MEDS ORDERED: Vancomycin HCl 1.5 GM in Sodium Chloride 0.9% 250 ML 300 ML IVPB SCH (09:15)
[2019-02-26] MEDS ORDERED: Clindamycin/D5W 600 mg/50 ml Premix Bag ONE (10:29)
[2019-02-26] MEDS ORDERED: Fentanyl 100 MCG/2 ML VIAL ONE (10:42)
[2019-02-26] MEDS ORDERED: Midazolam HCl 5 mg/5 ml Vial ONE (10:42)
[2019-02-26] MEDS ORDERED: Midazolam HCl 2 mg/2 ml Vial ONE ×2 (10:42→11:09)
[2019-02-26] MEDS ORDERED: Vecuronium 10 MG VIAL ONE ×2 (10:43→14:56)
[2019-02-26] MEDS ORDERED: Dexmedetomidine 200 MCG/2 ML VIAL ONE (10:43)
[2019-02-26] MEDS ORDERED: Heparin 10,000 UNITS/1 ML VIAL 30,000 UNITS in Sodium Chloride 0.9% 1,000 ML FS SCH (11:00)
[2019-02-26] MEDS ORDERED: Albumin 5% 500 ML ONE (11:11)
[2019-02-26] MEDS ORDERED: PHENYLEPHRINE-NS 100 MCG/ML 10 ML SYRINGE ONE ×2 (13:20→14:56)
[2019-02-26] MEDS ORDERED: Papaverine 60 MG/2 ML VIAL ONE (14:56)
[2019-02-26] MEDS ORDERED: Calcium Chloride 1 GM/10 ML Abboject SYRINGE ONE (14:56)
[2019-02-26] MEDS ORDERED: Magnesium 5 GM/10 ML VIAL ONE (14:56)
[2019-02-26] MEDS ORDERED: Aminocaproic Acid 5 GM/20 ML VIAL ONE (14:56)
[2019-02-26] MEDS ORDERED: Thrombin 5000 UNITS/5 ML VIAL ONE (14:56)
[2019-02-26] MEDS ORDERED: Nitroglycerin 50 MG/250 ML BOT ONE (14:56)
[2019-02-26] MEDS ORDERED: Sodium Bicarb 50 MEQ/50 ML VIAL ONE (14:56)
[2019-02-26] MEDS ORDERED: Lidocaine 2% PF 100 mg/5 ml Syringe ONE (14:56)
[2019-02-26] MEDS ORDERED: Heparin 5,000 UNITS/ML VIAL ONE (14:56)
[2019-02-26] MEDS ORDERED: Potassium Chloride 60 MEQ/30 ML VIAL ONE (14:56)
[2019-02-26] MEDS ORDERED: ePHEDrine 50 MG/ML VIAL ONE (14:56)
[2019-02-26] MEDS ORDERED: Heparin 30,000 units/30 ml VIAL ONE (14:56)
[2019-02-26] MEDS ORDERED: Mannitol 12.5 GM/50 ML ONE (14:56)
[2019-02-26] MEDS ORDERED: Cardioplegic Soln 1,000 ML BAG ONE (14:56)
[2019-02-26] MEDS ORDERED: Protamine Sulfate 250 MG/25 ML VIAL ONE (14:56)
[2019-02-26] MEDS ORDERED: Promethazine HCl 25 MG/ML VIAL IM PRN (16:00)
[2019-02-26] MEDS ORDERED: Phenylephrine 10 MG/NS 250 ML 250 ML IVPB PRN (16:00)
[2019-02-26] MEDS ORDERED: Magnesium 2 GM/50 ML 2 GM in Premix Bag 1 BAG IVPB SCH (16:00)
[2019-02-26] MEDS ORDERED: Bisacodyl 10 MG SUPP PR PRN (16:00)
[2019-02-26] MEDS ORDERED: Post-Op Insulin Drip Protocol IVPB ONE (16:00)
[2019-02-26] MEDS ORDERED: Nitroglycerin 50 MG/250 ML BOT 250 ML IVPB PRN (16:00)
[2019-02-26] MEDS ORDERED: hydrALAZINE 20 MG/ML VIAL SLOW IVP PRN (16:00)
[2019-02-26] MEDS ORDERED: DOPamine 400 MG/D5W 250 ML 250 ML IVPB PRN (16:00)
[2019-02-26] MEDS ORDERED: niCARdipine 25 MG in Sodium Chloride 0.9% 250 ML 250 ML IVPB PRN (16:00)
[2019-02-26] MEDS ORDERED: Fentanyl 100 MCG/2 ML VIAL SLOW IVP PRN (16:00)
[2019-02-26] MEDS ORDERED: Hetastarch 6% 500 ML 500 ML IVPB PRN (16:00)
[2019-02-26] MEDS ORDERED: Acetaminophen 325 MG TAB PO PRN (16:00)
[2019-02-26] MEDS ORDERED: Morphine 2 MG/ML SYRINGE SLOW IVP PRN (16:00)
[2019-02-26] MEDS ORDERED: Mag-Al 1200 mg/1200 mg/30 ML UDCUP PO PRN (16:00)
[2019-02-26] MEDS ORDERED: Potassium Chloride 20 MEQ/100 ML PREMIX BAG IVPB PRN (16:00)
[2019-02-26] MEDS ORDERED: Guaifenesin DM 100-10/5 ML UDCUP PO PRN (16:00)
[2019-02-26] MEDS ORDERED: Norepinephrine 8 MG/0.9% NS 250 ML IVPB PRN (16:00)
[2019-02-26] MEDS ORDERED: Bisacodyl 5 MG TAB PO PRN (16:00)
--- NOTE | 2019-02-26 16:16 | RAD ---
EXAM: CHEST ONE VIEW HISTORY: Post open heart surgery. COMPARISON: 02/12/2019 FINDINGS: Endotracheal tube is noted in place with the tip overlying the T5 vertebral body and above the level of the aniyah. A right subclavian central venous catheter is noted in place with tip overlying the right atrium. Mediastinal drain and left-sided thoracostomy tube are noted in place. A dual-lead left subclavian cardiac pacemaking device is stable in position. There has been interval postsurgical changes related to median sternotomy and cardiac valve replacement and likely CABG. There is mild ate lectasis present at each lung base. No pneumothorax or pleural effusion is seen. Cardiac silhouette is stable in size. Pulmonary vasculature is within normal limits. Surgical clips again overlie the le ft upper quadrant. No other interval change. IMPRESSION: Interval postsurgical changes with lines and tubes in place as described above. There is mild bibasil ar atelectasis seen.
[2019-02-26 16:24] LABS: INR-International Normal Ratio 1.4; PTT 35.4 SEC (22.9-36.1); Prothrombin Time 17.3 SEC (12.0-14.7)
[2019-02-26 16:32] LABS: #Eosinphils 0.1 thou/uL (0.0-0.7); #Lymphocytes 0.9 thou/uL (1.20-3.40); #Monocytes 0.8 thou/uL (0.11-0.59); #Neutrophils 7.7 thou/uL (1.40-6.50); %Basophils 0.5 % (0.0-1.0); %Eosinophils 0.9 % (0.0-10.0); %Lymphocytes 9.8 % (21.0-51.0); %Monocytes 8.2 % (0.0-10.0); %Neutrophils 80.7 % (42.0-75.0); Hemoglobin 9.5 g/dL (12.0-16.0); Mean Corpuscular HGB CONC 34.5 g/dL (32.0-36.0); Mean Corpuscular Hemoglobin 30.5 pg (27.0-31.0); Mean Corpuscular Volume 88.6 fL (78.0-98.0); Mean Platelet Volume 8.4 fL (7.4-10.4); Platelet Count 87 thou/uL (130-400); RBC Distribution Width 12.4 % (11.5-14.5); Red Blood Cell (RBC) Count 3.12 mill/uL (4.20-5.40); White Blood Cell (WBC) Count 9.5 thou/uL (4.8-10.8)
[2019-02-26] MEDS ORDERED: HUMULIN R 100 UNITS in Sodium Chloride 0.9% 100 ML IVPB SCH (16:33)
[2019-02-26] MEDS ORDERED: Dextrose 50% Abboject 50 ML SYRINGE SLOW IVP PRN (16:33)
[2019-02-26] MEDS ORDERED: Dextrose 5% in Water 1,000 ML IV PRN (16:33)
[2019-02-26 16:34] LABS: Actual Bicarbonate (HCO3a) 20.1 mEq/L (22-28); Base Excess (BEa) -4.5 mEq/L (-2.0 to +3.0); CO2 Tension 34.8 mmHg (35.0-45.0); Calcium, Ionized 1.07 mmol/L (1.12-1.30); Carboxyhemoglobin (COHb) 0.6 gm% (0.0-3.0); Hemoglobin (Hb) 9.4 g/dL (12.0-16.0); O2 Tension (PaO2) 120.8 mmHg (> 70.0); Potassium - ABG Lab 3.94 mmol/L (3.70-5.30); pH, Arterial 7.38 (7.35-7.45)
[2019-02-26 16:36] LABS: Puncture Site ALINE
[2019-02-26 16:37] LABS: Anion Gap 9 mmol/L (10-20); BUN (Urea Nitrogen) 14 mg/dL (9.8-20.1); Calc. Creatinine Clearance 105 mL/min (70-130); Calcium 7.7 mg/dL (7.8-10.44); Carbon Dioxide 23 mmol/L (23-31); Chloride 112 mmol/L (98-107); Estimated GFR-MDRD Greater than 90; Glucose 139 mg/dL (83-110); Potassium 4.3 mmol/L (3.5-5.1); Sodium 140 mmol/L (136-145)
[2019-02-26 16:45] LABS: MDiff Complete? YES; Platelet Morphology Comment Appears Decreased; Polychromasia SLIGHT = 2-3 cells (100X) (0-2/hpf)
[2019-02-26] MEDS: Clindamycin/D5W 900 MG in Premix Bag 1 BAG IVPB SCH ×2 (17:03→21:22)
[2019-02-26] MEDS: Lactated Ringer's 1,000 ML IV SCH (17:03)
[2019-02-26] MEDS: Vancomycin HCl 1 GM in Premix Bag 1 BAG IVPB SCH (20:40)
[2019-02-26] MEDS: Famotidine/PF 20 mg/2ml Vial SLOW IVP SCH (20:41)
[2019-02-26] MEDS: Ondansetron PF 4 MG/2 ML Vial IVP PRN (20:51)
[2019-02-26] MEDS: Rosuvastatin 10 MG TAB PO SCH (21:21)
[2019-02-26] MEDS: Propafenone HCl 150 MG TAB PO SCH (21:21)
[2019-02-26 22:47] LABS: Actual Bicarbonate (HCO3a) 21.2 mEq/L (22-28); Base Excess (BEa) -3.6 mEq/L (-2.0 to +3.0); CO2 Tension 37.5 mmHg (35.0-45.0); Hemoglobin (Hb) 10.4 g/dL (12.0-16.0); O2 Tension (PaO2) 133.2 mmHg (> 70.0); pH, Arterial 7.37 (7.35-7.45)
[2019-02-26 22:48] LABS: Calcium, Ionized 1.12 mmol/L (1.12-1.30); Potassium - ABG Lab 4.45 mmol/L (3.70-5.30); Puncture Site ALINE
[2019-02-26 22:49] LABS: ALV-art Gradient 105.125 (0-20)
[2019-02-26] MEDS: Fentanyl 100 MCG/2 ML VIAL SLOW IVP PRN (23:10)
[2019-02-27] MEDS: HYDROcodone/Acetaminophen 5/325 mg Tablet PO PRN ×4 (01:14→16:58)
[2019-02-27] MEDS: Insulin Regular 300 UNITS/3 ML VIAL SC PRN ×3 (01:15→20:19)
[2019-02-27] MEDS: Norepinephrine 8 MG in Dextrose 5% in Water 242 ML IVPB PRN ×2 (02:06→17:57)
[2019-02-27] MEDS: Fentanyl 100 MCG/2 ML VIAL SLOW IVP PRN ×3 (02:54→15:07)
[2019-02-27] MEDS: Clindamycin/D5W 900 MG in Premix Bag 1 BAG IVPB SCH ×2 (02:59→09:05)
[2019-02-27 04:25] LABS: #Lymphocytes 0.8 thou/uL (1.20-3.40); #Monocytes 1.2 thou/uL (0.11-0.59); #Neutrophils 9.7 thou/uL (1.40-6.50); %Basophils 0.4 % (0.0-1.0); %Eosinophils 0.1 % (0.0-10.0); %Lymphocytes 6.8 % (21.0-51.0); %Monocytes 9.8 % (0.0-10.0); Hemoglobin 9.9 g/dL (12.0-16.0); Mean Corpuscular HGB CONC 34.1 g/dL (32.0-36.0); Mean Corpuscular Hemoglobin 30.8 pg (27.0-31.0); Mean Corpuscular Volume 90.6 fL (78.0-98.0); Mean Platelet Volume 8.5 fL (7.4-10.4); Platelet Count 127 thou/uL (130-400); RBC Distribution Width 12.7 % (11.5-14.5); Red Blood Cell (RBC) Count 3.22 mill/uL (4.20-5.40); White Blood Cell (WBC) Count 11.7 thou/uL (4.8-10.8)
[2019-02-27 04:44] LABS: Anion Gap 11 mmol/L (10-20); BUN (Urea Nitrogen) 17 mg/dL (9.8-20.1); Calc. Creatinine Clearance 93 mL/min (70-130); Calcium 8.6 mg/dL (7.8-10.44); Carbon Dioxide 20 mmol/L (23-31); Chloride 109 mmol/L (98-107); Estimated GFR-MDRD 84; Glucose 152 mg/dL (83-110); Potassium 4.4 mmol/L (3.5-5.1); Sodium 136 mmol/L (136-145)
[2019-02-27] MEDS: Ondansetron PF 4 MG/2 ML Vial IVP PRN (05:42)
[2019-02-27] MEDS ORDERED: Fentanyl 100 MCG/2 ML VIAL SLOW IVP PRN (06:18)
[2019-02-27] MEDS: Lactated Ringer's 1,000 ML IV SCH (06:37)
[2019-02-27] MEDS: Ibuprofen 200 MG TAB PO SCH ×3 (07:40→21:21)
[2019-02-27] MEDS: Famotidine/PF 20 mg/2ml Vial SLOW IVP SCH ×2 (08:28→20:08)
[2019-02-27] MEDS: Aspirin Chewable 81 MG TAB PO SCH (08:28)
[2019-02-27] MEDS: Enoxaparin Sodium 30 MG/0.3 ML SYRINGE SC SCH (08:28)
[2019-02-27] MEDS: Polyethylene Glycol 3350 17 GM Packet PO SCH (08:28)
[2019-02-27] MEDS: Vancomycin HCl 1 GM in Premix Bag 1 BAG IVPB SCH (08:28)
--- NOTE | 2019-02-27 08:43 | RAD ---
PORTABLE CHEST: Date: 02/27/19 HISTORY: Postop sternotomy. COMPARISON: 02/26/19. FINDINGS: Cardiomegaly with postop sternotomy change. Dual lead pacemaker device is unchanged. There is cardiom egaly. Mild vascular engorgement. No focal infiltrate or significant effusion. The ET tube has been removed. IMPRESSION: No acute interval change. POS: OFF
[2019-02-27] MEDS ORDERED: Levothyroxine Sodium 125 MCG TAB PO SCH (09:00)
[2019-02-27] MEDS: Propafenone HCl 150 MG TAB PO SCH ×3 (09:00→20:08)
--- NOTE | 2019-02-27 10:46 | OP ---
DATE OF PROCEDURE: 02/26/2019 DIAGNOSES: Aortic valve stenosis, coronary artery disease. PROCEDURE PERFORMED: Coronary artery bypass graft x2, good quality MEDINA to a 1.25 mm left anterior descending, good quality vein to a 1.5 mm PDA with palpable calcium distally and throughout the PDA system. ADDITIONAL PROCEDURE: Aortic valve replacement #21 Magna. INSTRUCTIONAL DESIGN SPECIALIST: Titus Villegas MD TRANSFUSION: None. DESCRIPTION OF PROCEDURE: After adequate anesthesia had been obtained, the patient was prepped and draped. Dr. Villegas harvested a segment of vein from the left thigh while I performed a median sternotomy. Left internal mammary artery was harvested entering the left pleura. Mammary was divided distally after heparinization and passed posterior to the thymus gland through a hole in the pericardium. Aorta and right atrium were cannulated, taking care to avoid the atrial pacing lead. Following this, a cross-clamp was applied and a liter of cold blood cardioplegia given through the aortic root and repeated as 300 mL dose prior to opening the aorta. A CO2 catheter was placed in the pericardial well. After the dose of cardioplegia, a right superior pulmonary vein sump was placed. Following this, the PDA and then the LAD were opened and anastomosis completed. Consideration was given to ligating the left atrial appendage, but due to heavy calcification of the mitral valve anulus it was not felt safe to elevate the heart into the chest. Following opening of the aorta, a trileaflet aortic valve was excised. A large amount of calcium was debrided from the anterior leaflet to allow an open outflow tract. The area was thoroughly irrigated and suctioned and after sizers had been utilized, a 21 valve was seated after placing pledgeted 2-0 Ethibond sutures with pledgets deep to the anulus. Core knots were used to secure the valve and following this, the aorta was closed with a double layer of 5-0 Prolene suture. Air was then vented through the aortic root wall, proximal anastomosis was performed. With the patient in the steep Trendelenburg position, the cross-clamp was removed. Air was then continually vented through the needle until no air bubbles were seen. The sump was then removed as was the vent. The patient was then fully rewarmed and weaned from cardiopulmonary bypass. Cannulas were removed. Protamine given systemically and the aortic cannulation site reinforced with a 4-0 Prolene suture. Mediastinal and left pleural drains were placed following which the sternum was reapproximated with #7 interrupted wire. The subcutaneous tissue and skin were closed in layers and the patient is to be taken to the ICU in guarded condition. Job ID: [id number]
--- NOTE | 2019-02-27 12:23 | EKG ---
Test Reason : Blood Pressure : / mmHG Vent. Rate : 076 BPM Atrial Rate : 076 BPM P-R Int : 214 ms QRS Dur : 200 ms QT Int : 518 ms P-R-T Axes : 012 -68 090 degrees QTc Int : 582 ms Atrial-sensed ventricular-paced rhythm with prolonged AV conduction Abnormal ECG Confirmed by DR. Spenser OLMOS ([id number]) on 02/27/2019 12:22:56 PM Referred By: RADHA Confirmed By:DR. Spenser OLMOS
[2019-02-27] MEDS: Rosuvastatin 10 MG TAB PO SCH (20:08)
[2019-02-28] MEDS: HYDROcodone/Acetaminophen 5/325 mg Tablet PO PRN ×3 (03:51→20:03)
[2019-02-28 05:07] LABS: #Basophils 0.1 thou/uL (0.0-0.2); #Eosinphils 0.2 thou/uL (0.0-0.7); #Lymphocytes 1.6 thou/uL (1.20-3.40); #Monocytes 1.4 thou/uL (0.11-0.59); #Neutrophils 7.7 thou/uL (1.40-6.50); %Basophils 0.5 % (0.0-1.0); %Eosinophils 1.8 % (0.0-10.0); %Lymphocytes 14.7 % (21.0-51.0); %Monocytes 12.8 % (0.0-10.0); %Neutrophils 70.2 % (42.0-75.0); Mean Corpuscular HGB CONC 33.3 g/dL (32.0-36.0); Mean Corpuscular Hemoglobin 30.2 pg (27.0-31.0); Mean Corpuscular Volume 90.6 fL (78.0-98.0); Platelet Count 96 thou/uL (130-400); RBC Distribution Width 12.8 % (11.5-14.5); Red Blood Cell (RBC) Count 2.97 mill/uL (4.20-5.40); White Blood Cell (WBC) Count 10.9 thou/uL (4.8-10.8)
[2019-02-28 05:23] LABS: Anion Gap 12 mmol/L (10-20); BUN (Urea Nitrogen) 23 mg/dL (9.8-20.1); Calc. Creatinine Clearance 70 mL/min (70-130); Calcium 8.4 mg/dL (7.8-10.44); Carbon Dioxide 20 mmol/L (23-31); Chloride 106 mmol/L (98-107); Estimated GFR-MDRD 59; Glucose 118 mg/dL (83-110); Potassium 4.5 mmol/L (3.5-5.1); Sodium 133 mmol/L (136-145)
[2019-02-28] MEDS: Ibuprofen 200 MG TAB PO SCH ×3 (06:11→22:04)
[2019-02-28] MEDS ORDERED: Levothyroxine Sodium 125 MCG TAB PO SCH (07:30)
--- NOTE | 2019-02-28 08:56 | RAD ---
PORTABLE CHEST: HISTORY: Postop sternotomy followup. COMPARISON: 02/27/2019. FINDINGS: Cardiomegaly with postop sternotomy change. Dual-lead pacemaker device is unchanged. The central li ne is unchanged in position overlying the SVC. Mild vascular engorgement is similar to yesterday. No evidence of infiltrate or consolidation. No s ignificant effusion. IMPRESSION: Stable chest findings. POS: OFF
[2019-02-28] MEDS: Enoxaparin Sodium 30 MG/0.3 ML SYRINGE SC SCH (08:58)
[2019-02-28] MEDS: Polyethylene Glycol 3350 17 GM Packet PO SCH (08:58)
[2019-02-28] MEDS: Aspirin Chewable 81 MG TAB PO SCH (08:59)
[2019-02-28] MEDS: Famotidine 20 MG TAB PO SCH ×2 (08:59→20:02)
[2019-02-28] MEDS: Propafenone HCl 150 MG TAB PO SCH ×3 (09:04→20:02)
[2019-02-28] MEDS: Fentanyl 100 MCG/2 ML VIAL SLOW IVP PRN (11:59)
[2019-02-28] MEDS: Rosuvastatin 10 MG TAB PO SCH (20:02)
[2019-02-28] MEDS: Norepinephrine 8 MG in Dextrose 5% in Water 242 ML IVPB PRN (20:09)
[2019-03-01 04:19] LABS: #Basophils 0.1 thou/uL (0.0-0.2); #Eosinphils 0.1 thou/uL (0.0-0.7); #Lymphocytes 1.9 thou/uL (1.20-3.40); #Neutrophils 5.6 thou/uL (1.40-6.50); %Basophils 0.6 % (0.0-1.0); %Eosinophils 1.6 % (0.0-10.0); %Lymphocytes 21.6 % (21.0-51.0); %Monocytes 11.7 % (0.0-10.0); %Neutrophils 64.5 % (42.0-75.0); Mean Corpuscular HGB CONC 33.5 g/dL (32.0-36.0); Mean Corpuscular Hemoglobin 30.2 pg (27.0-31.0); Mean Corpuscular Volume 90.2 fL (78.0-98.0); Mean Platelet Volume 8.5 fL (7.4-10.4); Platelet Count 114 thou/uL (130-400); RBC Distribution Width 12.9 % (11.5-14.5); Red Blood Cell (RBC) Count 2.97 mill/uL (4.20-5.40); White Blood Cell (WBC) Count 8.7 thou/uL (4.8-10.8)
[2019-03-01 04:36] LABS: Anion Gap 8 mmol/L (10-20); BUN (Urea Nitrogen) 23 mg/dL (9.8-20.1); Calc. Creatinine Clearance 83 mL/min (70-130); Calcium 8.3 mg/dL (7.8-10.44); Carbon Dioxide 24 mmol/L (23-31); Chloride 106 mmol/L (98-107); Estimated GFR-MDRD 70; Glucose 101 mg/dL (83-110); Potassium 4.2 mmol/L (3.5-5.1); Sodium 134 mmol/L (136-145)
[2019-03-01] MEDS: HYDROcodone/Acetaminophen 5/325 mg Tablet PO PRN ×4 (04:55→18:53)
[2019-03-01] MEDS: Levothyroxine Sodium 125 MCG TAB PO SCH (04:55)
[2019-03-01] MEDS: Ibuprofen 200 MG TAB PO SCH ×3 (06:05→20:22)
[2019-03-01] MEDS ORDERED: Furosemide 80 MG TAB PO SCH ×2 (06:15→09:00)
[2019-03-01] MEDS: Aspirin Chewable 81 MG TAB PO SCH (09:23)
[2019-03-01] MEDS: Famotidine 20 MG TAB PO SCH ×2 (09:23→20:21)
[2019-03-01] MEDS: Enoxaparin Sodium 30 MG/0.3 ML SYRINGE SC SCH (09:23)
[2019-03-01] MEDS: Polyethylene Glycol 3350 17 GM Packet PO SCH (09:23)
--- NOTE | 2019-03-01 09:37 | RAD ---
PORTABLE CHEST: HISTORY: Postop open heart surgery. COMPARISON: 02/28/2019 FINDINGS: Heart size is enlarged. There are postop sternotomy changes with a pacemaker present. Chronic appea ring lung changes with some increased interstitial changes are seen. No definite interval change sin ce the prior exam. IMPRESSION: Stable examination. POS: JUAN DANIEL
[2019-03-01] MEDS: Propafenone HCl 150 MG TAB PO SCH ×3 (09:42→20:21)
[2019-03-01] MEDS: Ondansetron PF 4 MG/2 ML Vial IVP PRN (12:35)
[2019-03-01] MEDS: Rosuvastatin 10 MG TAB PO SCH (20:21)
[2019-03-02] MEDS: HYDROcodone/Acetaminophen 5/325 mg Tablet PO PRN ×4 (00:21→20:37)
[2019-03-02 05:12] LABS: #Eosinphils 0.1 thou/uL (0.0-0.7); #Lymphocytes 1.5 thou/uL (1.20-3.40); #Monocytes 0.8 thou/uL (0.11-0.59); #Neutrophils 3.9 thou/uL (1.40-6.50); %Basophils 0.5 % (0.0-1.0); %Lymphocytes 23.9 % (21.0-51.0); %Monocytes 12.4 % (0.0-10.0); %Neutrophils 61.3 % (42.0-75.0); Hemoglobin 8.8 g/dL (12.0-16.0); Mean Corpuscular HGB CONC 34.3 g/dL (32.0-36.0); Mean Corpuscular Hemoglobin 30.9 pg (27.0-31.0); Mean Corpuscular Volume 90.1 fL (78.0-98.0); Mean Platelet Volume 8.3 fL (7.4-10.4); Platelet Count 124 thou/uL (130-400); RBC Distribution Width 12.7 % (11.5-14.5); Red Blood Cell (RBC) Count 2.83 mill/uL (4.20-5.40); White Blood Cell (WBC) Count 6.3 thou/uL (4.8-10.8)
[2019-03-02 05:31] LABS: Anion Gap 9 mmol/L (10-20); BUN (Urea Nitrogen) 22 mg/dL (9.8-20.1); Calc. Creatinine Clearance 101 mL/min (70-130); Calcium 8.2 mg/dL (7.8-10.44); Carbon Dioxide 26 mmol/L (23-31); Chloride 104 mmol/L (98-107); Estimated GFR-MDRD 87; Glucose 85 mg/dL (83-110); Potassium 3.9 mmol/L (3.5-5.1); Sodium 135 mmol/L (136-145)
[2019-03-02] MEDS: Ibuprofen 200 MG TAB PO SCH (06:14)
[2019-03-02] MEDS: Levothyroxine Sodium 125 MCG TAB PO SCH (06:15)
[2019-03-02] MEDS ORDERED: Milk Of Magnesia 30 ML UDCUP PO PRN (07:39)
[2019-03-02] MEDS ORDERED: Acetaminophen 325 MG TAB PO PRN (07:39)
[2019-03-02] MEDS ORDERED: Ondansetron PF 4 MG/2 ML Vial IVP PRN (07:39)
[2019-03-02] MEDS ORDERED: Guaifenesin DM 100-10/5 ML UDCUP PO PRN (07:39)
[2019-03-02] MEDS ORDERED: Bisacodyl 10 MG SUPP PR PRN (07:39)
[2019-03-02] MEDS ORDERED: Nitroglycerin 0.4 MG TAB (25 Tab Bottle) SL PRN (07:39)
[2019-03-02] MEDS ORDERED: Mineral Oil ENEMA PR PRN (07:39)
[2019-03-02] MEDS ORDERED: Mag-Al 1200 mg/1200 mg/30 ML UDCUP PO PRN (07:39)
[2019-03-02] MEDS ORDERED: Bisacodyl 5 MG TAB PO PRN (07:39)
[2019-03-02] MEDS: Aspirin Chewable 81 MG TAB PO SCH (08:01)
[2019-03-02] MEDS: Potassium Chloride 10 MEQ TAB PO SCH (08:02)
[2019-03-02] MEDS: Furosemide 40 MG TAB PO SCH (08:02)
[2019-03-02] MEDS: Propafenone HCl 150 MG TAB PO SCH ×3 (08:02→20:37)
[2019-03-02] MEDS: Famotidine 20 MG TAB PO SCH ×2 (08:02→20:37)
[2019-03-02] MEDS: Polyethylene Glycol 3350 17 GM Packet PO SCH (08:02)
[2019-03-02] MEDS: Rosuvastatin 10 MG TAB PO SCH (20:37)
[2019-03-03] MEDS: Levothyroxine Sodium 125 MCG TAB PO SCH (05:48)
[2019-03-03] MEDS: Potassium Chloride 10 MEQ TAB PO SCH (08:33)
[2019-03-03] MEDS: Aspirin Chewable 81 MG TAB PO SCH (08:33)
[2019-03-03] MEDS: Furosemide 40 MG TAB PO SCH (08:33)
[2019-03-03] MEDS: Propafenone HCl 150 MG TAB PO SCH ×3 (08:33→20:28)
[2019-03-03] MEDS: Famotidine 20 MG TAB PO SCH ×2 (08:33→20:29)
[2019-03-03] MEDS: Polyethylene Glycol 3350 17 GM Packet PO SCH (08:34)
[2019-03-03] MEDS: HYDROcodone/Acetaminophen 5/325 mg Tablet PO PRN ×3 (08:38→20:34)
[2019-03-03 12:22] LABS: Bacteria/HPF None Seen HPF (None Seen); Bilirubin Negative (Negative); Blood, Urine Trace (Negative); Clarity Clear (Clear); Glucose, Urine (Dipstick) Normal (Negative); Leukocyte Negative Leu/uL (Negative); Nitrite Negative (Negative); Protein, Urine (Dipstick) Negative (Neg-Trace); RBC/HPF 0-3 HPF (0-3); Squamous Epithelial 0-3 HPF (0-3); Urobilinogen Normal mg/dL (Less than 2); WBC/HPF 0-3 HPF (0-3)
[2019-03-03 12:23] LABS: Urine Culture Reflex No No
--- NOTE | 2019-03-03 14:10 | PDOC.CPN ---
- Subjective Date: 03/03/19 Time: 14:15 Interval history: Converted to AFlutter this AM. Rate-controlled/pacing. Patient with c/o of not enough protein intake in diet. Cannot eat much solids due to gastric sleeve history. - Review of Systems General: denies: fever/chills, weight/appetite/sleep changes, night sweats, fatigue Respiratory: reports: cough, congestion Cardiovascular: denies: chest pain, palpitation, edema, paroxysmal nocturnal dyspnea, orthopnea Gastrointestinal: denies: nausea, vomiting, diarrhea, constipation, abd pain, GI bleeding Musculoskeletal: reports: pain, tenderness Neurological: denies: numbness, syncope, seizure, weakness - Objective Allergies/Adverse Reactions: Allergies Allergy/AdvReac Type Severity Reaction Status Date / Time cephalexin monohydrate Allergy RED Verified 02/21/19 13:57 [From Keflex] ciprofloxacin [From Cipro] Allergy Hives Verified 02/21/19 13:57 ciprofloxacin HCl Allergy Verified 02/22/19 15:05 [From Cipro] Penicillins Allergy Hives Verified 02/21/19 13:57 Tetanus Vaccines and Toxoid Allergy SWELLING Verified 02/21/19 13:57 [Tetanus Vaccines & Toxoid] OF ARM codeine AdvReac Mild Nausea Verified 02/21/19 13:57 Visit Medications: Current Medications Acetaminophen (Tylenol) 650 mg PO Q6H PRN PRN Reason: Headache/Fever or Pain Hydrocodone Bitart/Acetaminophen ([place] 5/325) 1 tab PO Q4H PRN PRN Reason: Moderate Pain (4-6) Last Admin: 03/03/19 08:38 Dose: 1 tab Al Hydroxide/Mg Hydroxide (Maalox) 30 ml PO Q4H PRN PRN Reason: Indigestion Aspirin (Aspirin Chewable) 81 mg PO DAILY [facility] Last Admin: 03/03/19 08:33 Dose: 81 mg Bisacodyl (Dulcolax) 10 mg PO Q12H PRN PRN Reason: Constipation Bisacodyl (Dulcolax) 10 mg CA Q12H PRN PRN Reason: Constipation Famotidine (Pepcid) 20 mg PO Q12HR [facility] Last Admin: 03/03/19 08:33 Dose: 20 mg Furosemide (Lasix) 40 mg PO DAILY[facility] Last Admin: 03/03/19 08:33 Dose: 40 mg Guaifenesin/Dextromethorphan (Robitussin Dm) 15 ml PO Q4H PRN PRN Reason: Cough Levothyroxine Sodium (Synthroid) 125 mcg PO 0600 [facility] Last Admin: 03/03/19 05:48 Dose: 125 mcg Magnesium Hydroxide (Milk Of Magnesium) 30 ml PO Q12H PRN PRN Reason: Constipation Mineral Oil (Fleet Mineral Oil) 133 ml [place] DAILYPRN PRN PRN Reason: Constipation Nitroglycerin (Nitrostat) 0.4 mg SL Q5MIN PRN PRN Reason: Chest Pain Ondansetron HCl (Zofran) 4 mg IVP Q6H PRN PRN Reason: Nausea/Vomiting Polyethylene Glycol (Miralax) 17 gm PO DAILY [facility] Last Admin: 03/03/19 08:34 Dose: 17 gm Potassium Chloride (Klor-Con 10) 10 meq PO QAM-WM [facility] Last Admin: 03/03/19 08:33 Dose: 10 meq Propafenone HCl (Rythmol) 150 mg PO TID [facility] Last Admin: 03/03/19 08:33 Dose: 150 mg Rosuvastatin Calcium (Crestor) 20 mg PO HS [facility] Last Admin: 03/02/19 20:37 Dose: 20 mg Vital Signs & Weight: Vital Signs Temp Pulse Pulse Pulse Resp BP BP 03/03/19 12:00 97.8 F 68 18 03/03/19 08:47 79 71 149/72 H 03/03/19 08:00 03/03/19 07:54 99.1 F 89 18 03/03/19 04:37 03/03/19 04:00 98.4 F 85 18 128/70 BP BP Pulse Ox Pulse Ox 03/03/19 12:00 101/56 L 98 03/03/19 08:47 96 03/03/19 08:00 92 L 03/03/19 07:54 130/75 92 L 03/03/19 04:37 96 03/03/19 04:00 96 Weight 180 lb 3.2 oz - Physical Exam General: alert & oriented x3, appears well HEENT: mucus membranes moist Cardiac: regular rate and rhythm, no murmur Lungs: clear to auscultation, normal breath sounds Neuro: grossly intact Abdomen: unremarkable, soft Skin: clear - Labs Result Diagrams: 03/02/19 04:55 03/02/19 04:55 - Assessment/Plan Assessment/Plan: 1. CAD s/p CABG x 2 2. s/p AVR 3. AFlutter 4. Paroxysmal AF 5. s/p pacer Stable. Will given mucinex PRN for cough/congestion. Mighty Shakes daily. Continue Rhythmol. Resume Eliquis. RG Agree with above Rate control Stop Rhythmol(contraindicated in cAD)
--- NOTE | 2019-03-03 16:13 | RAD ---
TWO VIEW CHEST: 03/03/19 HISTORY: Fever. COMPARISON: 03/01/19. Left basilar infiltrate and effusion and/or atelectasis obscuring the left hemidiaphragm. Lungs otherwise clear. Heart size is mildly enlarged. Vascular markings normal. IMPRESSION: Left effusion with left basilar infiltrate and/or atelectasis. POS: OFF
[2019-03-03] MEDS: Apixaban 5 MG TAB PO SCH (20:28)
[2019-03-03] MEDS: guaiFENesin ER 600 MG TAB PO SCH (20:28)
[2019-03-03] MEDS: Rosuvastatin 10 MG TAB PO SCH (20:28)
[2019-03-04] MEDS: Levothyroxine Sodium 125 MCG TAB PO SCH (05:24)
[2019-03-04] MEDS: HYDROcodone/Acetaminophen 5/325 mg Tablet PO PRN ×4 (05:26→21:34)
[2019-03-04] MEDS: Potassium Chloride 10 MEQ TAB PO SCH (09:56)
[2019-03-04] MEDS: Aspirin Chewable 81 MG TAB PO SCH (09:56)
[2019-03-04] MEDS: Apixaban 5 MG TAB PO SCH ×2 (09:57→21:30)
[2019-03-04] MEDS: Furosemide 40 MG TAB PO SCH (09:57)
[2019-03-04] MEDS: Famotidine 20 MG TAB PO SCH ×2 (09:57→21:30)
[2019-03-04] MEDS: guaiFENesin ER 600 MG TAB PO SCH ×2 (09:58→21:30)
[2019-03-04] MEDS: Polyethylene Glycol 3350 17 GM Packet PO SCH (09:59)
--- NOTE | 2019-03-04 10:35 | EKG ---
Test Reason : Blood Pressure : / mmHG Vent. Rate : 087 BPM Atrial Rate : 087 BPM P-R Int : 218 ms QRS Dur : 178 ms QT Int : 442 ms P-R-T Axes : 072 -55 096 degrees QTc Int : 531 ms Electronic ventricular pacemaker When compared with ECG of 26-FEB-2019 16:14, Vent. rate has increased BY [address] Spenser OLMOS ([id number]) on 03/04/2019 10:35:26 AM Referred By: RADHA Confirmed By:DR. Spenser OLMOS
--- NOTE | 2019-03-04 12:09 | PDOC.CPN ---
- Subjective Date: 03/04/19 Time: 12:07 Interval history: No complaints. Feeling much better today. - Review of Systems General: denies: fever/chills, weight/appetite/sleep changes, night sweats, fatigue Respiratory: denies: cough, congestion, shortness of breath, exercise intolerance Cardiovascular: denies: chest pain, palpitation, edema, paroxysmal nocturnal dyspnea, orthopnea Gastrointestinal: denies: nausea, vomiting, diarrhea, constipation, abd pain, GI bleeding Musculoskeletal: denies: pain, tenderness, stiffness, swelling, arthritis/ arthralgias Neurological: denies: numbness, syncope, seizure, weakness - Objective Allergies/Adverse Reactions: Allergies Allergy/AdvReac Type Severity Reaction Status Date / Time cephalexin monohydrate Allergy RED Verified 02/21/19 13:57 [From Keflex] ciprofloxacin [From Cipro] Allergy Hives Verified 02/21/19 13:57 ciprofloxacin HCl Allergy Verified 02/22/19 15:05 [From Cipro] Penicillins Allergy Hives Verified 02/21/19 13:57 Tetanus Vaccines and Toxoid Allergy SWELLING Verified 02/21/19 13:57 [Tetanus Vaccines & Toxoid] OF ARM codeine AdvReac Mild Nausea Verified 02/21/19 13:57 Visit Medications: Current Medications Acetaminophen (Tylenol) 650 mg PO Q6H PRN PRN Reason: Headache/Fever or Pain Hydrocodone Bitart/Acetaminophen ([place] 5/325) 1 tab PO Q4H PRN PRN Reason: Moderate Pain (4-6) Last Admin: 03/04/19 09:29 Dose: 1 tab Al Hydroxide/Mg Hydroxide (Maalox) 30 ml PO Q4H PRN PRN Reason: Indigestion Apixaban (Eliquis) 5 mg PO BID [facility] Last Admin: 03/04/19 09:57 Dose: 5 mg Aspirin (Aspirin Chewable) 81 mg PO DAILY [facility] Last Admin: 03/04/19 09:56 Dose: 81 mg Bisacodyl (Dulcolax) 10 mg PO Q12H PRN PRN Reason: Constipation Bisacodyl (Dulcolax) 10 mg SD Q12H PRN PRN Reason: Constipation Famotidine (Pepcid) 20 mg PO Q12HR [facility] Last Admin: 03/04/19 09:57 Dose: 20 mg Furosemide (Lasix) 40 mg PO DAILY-[facility] Last Admin: 03/04/19 09:57 Dose: 40 mg Guaifenesin (Mucinex) 600 mg PO Q12HR [facility] Last Admin: 03/04/19 09:58 Dose: 600 mg Guaifenesin/Dextromethorphan (Robitussin Dm) 15 ml PO Q4H PRN PRN Reason: Cough Last Admin: 03/03/19 17:44 Dose: 15 ml Levothyroxine Sodium (Synthroid) 125 mcg PO 0600 [facility] Last Admin: 03/04/19 05:24 Dose: 125 mcg Magnesium Hydroxide (Milk Of Magnesium) 30 ml PO Q12H PRN PRN Reason: Constipation Mineral Oil (Fleet Mineral Oil) 133 ml [place] DAILYPRN PRN PRN Reason: Constipation Nitroglycerin (Nitrostat) 0.4 mg SL Q5MIN PRN PRN Reason: Chest Pain Ondansetron HCl (Zofran) 4 mg IVP Q6H PRN PRN Reason: Nausea/Vomiting Last Admin: 03/03/19 17:43 Dose: 4 mg Polyethylene Glycol (Miralax) 17 gm PO DAILY [facility] Last Admin: 03/04/19 09:59 Dose: 17 gm Potassium Chloride (Klor-Con 10) 10 meq PO QAM-WM [facility] Last Admin: 03/04/19 09:56 Dose: 10 meq Rosuvastatin Calcium (Crestor) 20 mg PO HS [facility] Last Admin: 03/03/19 20:28 Dose: 20 mg Vital Signs & Weight: Vital Signs Temp Pulse Resp BP BP Pulse Ox 03/04/19 08:00 98.3 F 83 18 119/69 94 L 03/04/19 03:30 98.2 F 90 18 128/65 96 Weight 177 lb 14.4 oz - Physical Exam General: alert & oriented x3, appears well HEENT: mucus membranes moist Neck: supple neck Cardiac: regular rate and rhythm Lungs: clear to auscultation, decreased breath sounds (left base>right) Neuro: grossly intact Abdomen: unremarkable Skin: clear - Labs Result Diagrams: 03/02/19 04:55 03/02/19 04:55 - Assessment/Plan Assessment/Plan: 1. CAD s/p CABG x 2 2. s/p AVR 3. AFlutter 4. Paroxysmal AF 5. s/p pacer Patient much improved. 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 Had AFlutter yesterday. Rhythmol stopped by RG due to history of CAD. ? replace with Multaq? Will defer to Dr. Carter tomorrow.
[2019-03-04] MEDS: Rosuvastatin 10 MG TAB PO SCH (21:30)
[2019-03-05] MEDS: Levothyroxine Sodium 125 MCG TAB PO SCH (06:21)
[2019-03-05] MEDS ORDERED: Dronedarone HCl 400 MG TAB PO SCH (08:00)
[2019-03-05] MEDS: HYDROcodone/Acetaminophen 5/325 mg Tablet PO PRN ×2 (08:43→14:46)
[2019-03-05] MEDS: Famotidine 20 MG TAB PO SCH (08:43)
[2019-03-05] MEDS: Aspirin Chewable 81 MG TAB PO SCH (08:43)
[2019-03-05] MEDS: Potassium Chloride 10 MEQ TAB PO SCH (08:44)
[2019-03-05] MEDS: Polyethylene Glycol 3350 17 GM Packet PO SCH (08:44)
[2019-03-05] MEDS ORDERED: Apixaban 5 MG TAB PO SCH (09:00)
[2019-03-05] MEDS: guaiFENesin ER 600 MG TAB PO SCH (11:20)
[2019-03-05 11:32] VITALS: BP 106/74
--- NOTE | 2019-03-05 13:48 | DIS ---
DATE OF ADMISSION: 02/22/2019 DATE OF DISCHARGE: 03/05/2019 HOSPITAL COURSE: This is a 74-year-old female admitted post catheterization by Dr. Swain on 02/22, where she was found to have aortic valve area of 0.9, and 2-vessel coronary artery disease. Surgical intervention was recommended. She had planned on being discharged to be readmitted at a later date; however, due to some hypotension after her cast she remained in the hospital, and then, ultimately on 02/26, underwent aortic valve replacement with a 21 magna valve and 2-vessel bypass grafting to the LAD and PDA. Postoperatively, she remained in a sinus rhythm, typically A-sensed and V-paced. She will be discharged to the [facility] and is ambulating with assistance only. Discharge and followup instructions have been given. Job ID: [id number]
[2019-03-05 13:53] VITALS: TEMP 98.3
== END 2019-03-05 15:25 | disposition swing bed (61) | DRG 217 ==
LOC: CCL 06:15 → 2NO 14:22 → CCU 02-26 09:05 → 2NO 03-02 08:52
PROVIDERS: ADMIT Internal Medicine Cardiovascular Disease; ATTEND Internal Medicine Cardiovascular Disease
PROC: 4A023N8 Measurement of Cardiac Sampling and Pressure, Bilateral, Percutaneous Approach (ICD-10-PCS; 2019-02-22)
PROC: B2161ZZ Fluoroscopy of Right and Left Heart using Low Osmolar Contrast (ICD-10-PCS; 2019-02-22)
PROC: B2111ZZ Fluoroscopy of Multiple Coronary Arteries using Low Osmolar Contrast (ICD-10-PCS; 2019-02-22)
PROC: 02RF0JZ Replacement of Aortic Valve with Synthetic Substitute, Open Approach (ICD-10-PCS; principal; 2019-02-26)
PROC: 02100Z9 Bypass Coronary Artery, One Artery from Left Internal Mammary, Open Approach (ICD-10-PCS; 2019-02-26)
PROC: 021009W Bypass Coronary Artery, One Artery from Aorta with Autologous Venous Tissue, Open Approach (ICD-10-PCS; 2019-02-26)
PROC: 06BQ4ZZ Excision of Left Saphenous Vein, Percutaneous Endoscopic Approach (ICD-10-PCS; 2019-02-26)
PROC: 5A1221Z Performance of Cardiac Output, Continuous (ICD-10-PCS; 2019-02-26)
DX: I35.0 Nonrheumatic aortic (valve) stenosis (principal); I48.92 Unspecified atrial flutter; I25.10 Atherosclerotic heart disease of native coronary artery without angina pectoris; I10 Essential (primary) hypertension; E78.00 Pure hypercholesterolemia, unspecified; E03.9 Hypothyroidism, unspecified; I48.0 Paroxysmal atrial fibrillation; E11.9 Type 2 diabetes mellitus without complications; E66.9 Obesity, unspecified; E78.5 Hyperlipidemia, unspecified; I95.9 Hypotension, unspecified; Z95.0 Presence of cardiac pacemaker; Z88.1 Allergy status to other antibiotic agents; Z68.34 Body mass index [BMI] 34.0-34.9, adult; Z95.2 Presence of prosthetic heart valve; Z90.49 Acquired absence of other specified parts of digestive tract; Z98.84 Bariatric surgery status; Z88.5 Allergy status to narcotic agent; Z88.0 Allergy status to penicillin; Z88.8 Allergy status to other drugs, medicaments and biological substances; Z79.01 Long term (current) use of anticoagulants; Z88.7 Allergy status to serum and vaccine
CPT/HCPCS: 36415; 36416; 36430; 71045; 71046; 80048; 81001; 82805; 85025; 85347; 85610; 85730; 86850; 86900; 86901; 93005; 93010; 93460; 93561; 93798; 93880; 94002; 94150; 99152; 99153; C1769; J1642; J1644; J1650; J2001; J2150; J2250; J2270; J2405; J2440; J2550; J2720; J3010; J3370; J3475; J3480; J3490; J7050; J7070; P9045; Q9967; S0017; S0028

== ENCOUNTER 2019-03-17 15:18 | Inpatient (IN) | payer MEDICARE, BC ==
[2019-03-17] MEDS ORDERED: Bisacodyl 10 MG SUPP PR PRN (20:12)
[2019-03-17] MEDS ORDERED: Ondansetron PF 4 MG/2 ML Vial IVP PRN (20:12)
[2019-03-17] MEDS ORDERED: Bisacodyl 5 MG TAB PO PRN (20:12)
[2019-03-17] MEDS ORDERED: Acetaminophen 325 MG TAB PO PRN (20:12)
[2019-03-17] MEDS ORDERED: HYDROcodone/Acetaminophen 5/325 mg Tablet PO PRN (20:12)
[2019-03-17] MEDS ORDERED: Senokot S 8.6-50 MG TAB PO PRN (20:12)
[2019-03-17] MEDS ORDERED: Calcium Carbonate 500 MG ChewTAB PO PRN (20:17)
--- NOTE | 2019-03-17 20:31 | PDOC.HHP ---
Hospitalist HPI - History of Present Illness L sided pleuritic chest pain History of Present Illness: Patient is a 74F with PMH recent AVR and 2 vessel CABG on 02/26/19, diabetes presenting as transfer from [facility] for worsening L sided pleuritic chest pain and shortness of breath. Her pain has been slowly worsening and she was recently placed on lasix but did not sigificantly improve symptoms, today she had a CXR performed revealing LLL pneumonia and L pleural effusion, patient transferred here for further workup and for pulmonary consultation. Patient not in distress, joking around, complains of worsening pedal edema over time. No chest pain or shortness of breath at the moment. EKG reviewed, av paced with PAC. Her CABG was done on 02/26/[address] Vince Betancourt. AVR was done at same time with a #21 Magna. she has history of atrial fibroillation on eliquis. she has been at rehab since discharge from this facility after CABG Hospitalist ROS - Review of Systems Constitutional: denies: fever, chills Eyes: denies: pain, vision change ENT: denies: ear pain, ear discharge, nose pain, nose discharge, nose congestion , mouth pain, mouth swelling, throat pain, throat swelling, other Respiratory: reports: cough, dry, shortness of breath, SOB with excertion, pleuritic pain Cardiovascular: reports: edema. denies: chest pain, palpitations, orthopnea, paroxysmal noc. dyspnea Gastrointestinal: denies: nausea, vomiting, diarrhea Genitourinary: denies: dysuria, frequency Musculoskeletal: denies: neck pain, shoulder pain Skin: denies: rash, lesions Neurological: denies: weakness, numbness All other systems reviewed; all pertinent +/- noted in HPI/Subj Hospitalist History - Past Medical History Cardiac: reports: AFIB, CAD, Other (aortic valve replacement, pacemaker for complete heart block) - Past Surgical History Other Surgical History: hernia thyrroidectomy carpal tunnel release - Family History Family History: reports: no pertinent history (reviewed) - Social History Alcohol: reports: None Drugs: reports: none - Exam General Appearance: NAD, awake alert Eye: PERRL, anicteric sclera ENT: normocephalic atraumatic, no oropharyngeal lesions, moist mucosa Neck: supple, symmetric, no JVD, no thyromegaly, no lymphadenopathy, no carotid bruit Heart: RRR, no murmur, no gallops, no rubs, normal peripheral pulses Respiratory: no wheezes Respiratory - other findings: diminished breath sounds LLL, some dependant crackles Gastrointestinal: soft, non-tender, non-distended, normal bowel sounds, no palpable masses, no hepatomegaly, no splenomegaly, no bruit Extremities: no cyanosis, no clubbing, no edema Skin: normal turgor, no lesions, no rashes Neurological: cranial nerve grossly intact, normal sensation to touch, no weakness, no focal deficits, no new deficit Musculoskeletal: normal tone, normal strength, no muscle wasting Psychiatric: normal affect, normal behavior, A&O x 3 Hospitalist Results - Labs Lab results: outside records reviewed, CXR w/ LLL pneumonia and L pleural effusion by report EKG AV paced with PaCs Hospitalist H&P A/P - Plan Plan: Patient is a 74F with PMH recent AVR and 2 vessel CABG on 02/26/19, diabetes presenting as transfer from [facility] for worsening L sided pleuritic chest pain and shortness of breath. # LLL pneumonia with pleural effusion - continue lasix 40mg PO daily - start azithromycin - pulmonary consult order placed, follow up in AM - sputum culture, urine legionella and pneumococcal Ag # CAD - s/p CABG and AVR on 02/26/19 continue home meds # severe aortic stenosis - s/p AVR # history of HTN - PRN hydralazine to be added # history of DM - will order SSI though last A1C was under 6 # history of complete heart block and pacemaker placement - noted, continue home dronederone # hypothyroidism - continue home synthroid # paroxysmal afib - continue rate/rhythm control meds and eliquis Debility - consult PT/OT Dispo - back to rehab once pneumonia and symptoms improve
[2019-03-17] MEDS ORDERED: Dextrose 5% in Water 1,000 ML IV PRN (20:50)
[2019-03-17] MEDS ORDERED: HumaLOG 300 UNITS/3 ML VIAL SC PRN (20:50)
[2019-03-17] MEDS ORDERED: Dextrose 50% Abboject 50 ML SYRINGE SLOW IVP PRN (20:50)
[2019-03-17] MEDS ORDERED: hydrALAZINE 20 MG/ML VIAL SLOW IVP PRN (20:50)
[2019-03-17] MEDS: Azithromycin 500 MG in Sodium Chloride 0.9% 250 ML 250 ML IVPB SCH (22:36)
[2019-03-17] MEDS: HYDROcodone/Acetaminophen 5/325 mg Tablet PO PRN (22:36)
[2019-03-17] MEDS: Apixaban 5 MG TAB PO SCH (22:37)
[2019-03-17] MEDS: Famotidine 20 MG TAB PO SCH (22:37)
[2019-03-17] MEDS: Rosuvastatin 20 MG TAB PO SCH (22:37)
[2019-03-18 05:42] LABS: #Basophils 0.1 thou/uL (0.0-0.2); #Eosinphils 0.1 thou/uL (0.0-0.7); #Lymphocytes 1.4 thou/uL (1.20-3.40); #Monocytes 0.7 thou/uL (0.11-0.59); #Neutrophils 2.3 thou/uL (1.40-6.50); %Basophils 1.5 % (0.0-1.0); %Eosinophils 3.1 % (0.0-10.0); %Lymphocytes 30.6 % (21.0-51.0); %Monocytes 14.5 % (0.0-10.0); %Neutrophils 50.2 % (42.0-75.0); Hemoglobin 8.7 g/dL (12.0-16.0); Mean Corpuscular HGB CONC 33.1 g/dL (32.0-36.0); Mean Corpuscular Hemoglobin 29.6 pg (27.0-31.0); Mean Corpuscular Volume 89.4 fL (78.0-98.0); Platelet Count 322 thou/uL (130-400); RBC Distribution Width 13.1 % (11.5-14.5); Red Blood Cell (RBC) Count 2.95 mill/uL (4.20-5.40); White Blood Cell (WBC) Count 4.6 thou/uL (4.8-10.8)
[2019-03-18 05:50] LABS: Anion Gap 12 mmol/L (10-20); BUN (Urea Nitrogen) 12 mg/dL (9.8-20.1); Calc. Creatinine Clearance 98 mL/min (70-130); Calcium 8.5 mg/dL (7.8-10.44); Carbon Dioxide 25 mmol/L (23-31); Chloride 103 mmol/L (98-107); Estimated GFR-MDRD 88; Glucose 82 mg/dL (83-110); Potassium 3.2 mmol/L (3.5-5.1); Sodium 137 mmol/L (136-145)
[2019-03-18] MEDS: Levothyroxine Sodium 125 MCG TAB PO SCH (05:51)
[2019-03-18] MEDS: HYDROcodone/Acetaminophen 5/325 mg Tablet PO PRN ×3 (05:52→21:30)
[2019-03-18] MEDS ORDERED: Furosemide 40 MG TAB PO SCH (07:30)
[2019-03-18] MEDS: Apixaban 5 MG TAB PO SCH (08:29)
[2019-03-18] MEDS: Ferrous Sulfate 325 MG TAB PO SCH (08:29)
[2019-03-18] MEDS: Dronedarone HCl 400 MG TAB PO SCH ×2 (08:29→17:21)
[2019-03-18] MEDS: Aspirin Chewable 81 MG TAB PO SCH (08:30)
[2019-03-18] MEDS: Famotidine 20 MG TAB PO SCH ×2 (08:30→21:31)
[2019-03-18] MEDS ORDERED: Enoxaparin Sodium 40 MG/0.4 ML SYRINGE SC SCH (09:00)
--- NOTE | 2019-03-18 12:13 | PDOC.HOSPP ---
- Subjective Encounter Date: 03/18/19 Encounter Time: 09:40 Subjective: c/o left chest pain on deep breathing/coughing no sputum, has dry cough no fever or palp has been ambulating with her cane at swing bed (150ft) - Objective Vital Signs & Weight: Vital Signs (12 hours) Temp Pulse Pulse Pulse Resp BP BP 03/18/19 11:40 98.6 F 80 16 03/18/19 09:05 69 79 124/61 147/79 H 03/18/19 08:00 98.4 F 72 16 03/18/19 03:31 98.3 F 76 16 BP Pulse Ox 03/18/19 11:40 109/59 L 94 L 03/18/19 09:05 03/18/19 08:00 99/55 L 94 L 03/18/19 03:31 132/64 95 Weight Weight 174 lb 6.17 oz I&O: 03/17/19 03/18/19 03/19/19 06:59 06:59 06:59 Intake Total 450 Output Total 300 Balance 150 Result Diagrams: 03/18/19 04:36 03/18/19 04:36 Additional Labs: Accuchecks 03/18/19 03/18/19 03/17/19 10:58 06:35 23:55 POC Glucose 120 H 91 115 H Hospitalist ROS - Medication Medications: Active Medications Generic Name Dose Route Start Last Admin Trade Name Freq PRN Reason Stop Dose Admin Hydrocodone Bitart/Acetaminophen 1 tab 03/17/19 20:12 03/18/19 10:46 [place] 5/325 PO 1 tab Q4H PRN Administration Moderate Pain (4-6) Hydrocodone Bitart/Acetaminophen 2 tab 03/17/19 22:14 03/18/19 05:52 [place] 5/325 PO 2 tab Q4H PRN Administration Moderate to Severe Pain (6-10) Apixaban 5 mg 03/17/19 21:00 03/18/19 08:29 Eliquis PO 5 mg BID PRATIBHA Administration Aspirin 81 mg 03/18/19 09:00 03/18/19 08:30 Aspirin Chewable PO 81 mg DAILY PRATIBHA Administration Dronedarone 400 mg 03/18/19 08:00 03/18/19 08:29 Multaq PO 400 mg BID-WM PRATIBHA Administration Famotidine 20 mg 03/17/19 21:00 03/18/19 08:30 Pepcid PO 20 mg BID PRATIBHA Administration Ferrous Sulfate 325 mg 03/18/19 08:00 03/18/19 08:29 Feosol PO 325 mg QAM-WM PRATIBHA Administration Azithromycin 500 mg/ Sodium 250 mls @ 250 mls/hr 03/17/19 21:00 03/17/19 22: 36 Chloride IVPB 250 mls 2100 PRATIBHA Administration Levothyroxine Sodium 125 mcg 03/18/19 06:00 03/18/19 05:51 Synthroid PO 125 mcg 0600 PRATIBHA Administration Ondansetron HCl 4 mg 03/17/19 20:12 03/17/19 21:45 Zofran IVP 4 mg Q6H PRN Administration Nausea/Vomiting Pantoprazole Sodium 40 mg 03/18/19 09:00 03/18/19 08:30 Protonix PO 40 mg DAILY PRATIBHA Administration Rosuvastatin Calcium 20 mg 03/17/19 21:00 03/17/19 22:37 Crestor PO 20 mg HS PRATIBHA Administration - Exam General Appearance: NAD, awake alert Eye: PERRL, anicteric sclera ENT: normocephalic atraumatic, no oropharyngeal lesions Neck: supple, symmetric Heart: RRR, no murmur Respiratory: no wheezes, no rales Gastrointestinal: soft, non-tender, normal bowel sounds Extremities: no cyanosis, no clubbing Neurological: cranial nerve grossly intact, no focal deficits Psychiatric: normal affect, A&O x 3 Hosp A/P (1) H/O two vessel coronary artery bypass graft Code(s): Z95.1 - PRESENCE OF AORTOCORONARY BYPASS GRAFT Status: Acute (2) h/o avr Status: Acute (3) Pleural effusion, left Code(s): J90 - PLEURAL EFFUSION, NOT ELSEWHERE CLASSIFIED Status: Acute (4) Anemia, normocytic normochromic Code(s): D64.9 - ANEMIA, UNSPECIFIED Status: Chronic (5) CAD (coronary artery disease) Code(s): I25.10 - ATHSCL HEART DISEASE OF [place] CORONARY ARTERY W/O ANG PCTRS Status: Chronic Qualifiers: Coronary Disease-Associated Artery/Lesion type: bypass graft [place] vs. transplanted heart: [place] heart Associated angina: without angina Qualified Code(s): I25.810 - Atherosclerosis of coronary artery bypass graft(s) without angina pectoris (6) Chronic anticoagulation Code(s): Z79.01 - HOUSE PLAYER (CURRENT) USE OF ANTICOAGULANTS Status: Chronic (7) Chronic atrial fibrillation Code(s): I48.2 - CHRONIC ATRIAL FIBRILLATION Status: Chronic (8) Chronic stage c diastolic heart failure Code(s): I50.32 - CHRONIC DIASTOLIC (CONGESTIVE) HEART FAILURE Status: Chronic (9) Diabetes type 2, controlled Code(s): E11.9 - TYPE 2 DIABETES MELLITUS WITHOUT COMPLICATIONS Status: Chronic Qualifiers: Diabetes mellitus [facility] insulin use: without middle or intermediate school principal use (10) Dyslipidemia Code(s): E78.5 - HYPERLIPIDEMIA, UNSPECIFIED Status: Chronic (11) GERD (gastroesophageal reflux disease) Code(s): K21.9 - GASTRO-ESOPHAGEAL REFLUX DISEASE WITHOUT ESOPHAGITIS Status: Chronic Qualifiers: Esophagitis presence: without esophagitis Qualified Code(s): K21.9 - Gastro -esophageal reflux disease without esophagitis (12) H/O cardiac pacemaker Code(s): Z95.0 - PRESENCE OF CARDIAC PACEMAKER Status: Chronic (13) H/O gastric bypass Code(s): Z98.84 - BARIATRIC SURGERY STATUS Status: Chronic (14) HTN (hypertension) Code(s): I10 - ESSENTIAL (PRIMARY) HYPERTENSION Status: Chronic Qualifiers: Hypertension type: essential hypertension Qualified Code(s): I10 - Essential (primary) hypertension (15) Hypothyroidism Code(s): E03.9 - HYPOTHYROIDISM, UNSPECIFIED Status: Chronic Qualifiers: Hypothyroidism type: unspecified Qualified Code(s): E03.9 - Hypothyroidism , unspecified - Plan pleuritic chest pain left side has post op effusion on left side, but pt is on eliquis as well for afib await 's opinion she has had avr unclear if its bioprosthetic 21 magna (likely as pt is 74 yrs old) continue asp, multaq, iron, crestor, may hold lasix if sbp is low to ambulate as tolerated will hold eliquis for now
--- NOTE | 2019-03-18 13:07 | CON ---
DATE OF CONSULTATION: 03/18/2019 This encompassed 75 minutes of time, of that time, greater than 50% was spent with the patient and/or the patient's unit in the hospital. REASON FOR CONSULTATION: A left pleural effusion. HISTORY OF PRESENT ILLNESS: Ms. Ang is a 74-year-old female, who underwent a coronary artery bypass and aortic valve replacement earlier in February. She has been staying over at the swing bed at [facility] for rehab. She has apparently developed some shortness of breath and some left-sided chest pain. I have been consulted to assess a left-sided pleural effusion. PAST MEDICAL HISTORY: 1. Paroxysmal atrial fibrillation for which she takes Eliquis. 2. Coronary artery disease. 3. Heart block, requiring pacemaker. 4. Recent aortic valve replacement. 5. Recent coronary artery bypass grafting surgery. 6. Thyroidectomy. 7. Carpal tunnel release. ALLERGIES: MULTIPLE INCLUDING CIPRO, PENICILLIN, TETANUS TOXOID, CEPHALOSPORINS, AND CODEINE. FAMILY MEDICAL HISTORY: Unremarkable. SOCIAL HISTORY: Nonsmoker. Does not consume alcohol. 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 REVIEW OF SYSTEMS: There are no fever, chills, nausea, vomiting, hematemesis, melena, hematochezia, hematuria, or dysuria. PHYSICAL EXAMINATION: VITAL SIGNS: Temperature 98.6, pulse 80, respirations 16, O2 saturation 94% on room air, and blood pressure 109/59. GENERAL: The patient is awake and alert, and in no distress. HEENT: Pupils react. Sclerae are anicteric. Oropharynx clear. NECK: No adenopathy or JVD. LUNGS: She has diminished breath sounds and dullness to percussion in the left base, approximately one-half the way up. Her right side is clear. CARDIOVASCULAR: S1 and S2, regular without murmur. Midline sternotomy scar is well healed. ABDOMEN: Soft and nontender. EXTREMITIES: No clubbing, cyanosis, or edema. She has several scars on her left leg from vein harvest. LABORATORY DATA: White blood cell count 4.6, hematocrit 26.4, and platelet count 322. BNP level 305. Sodium 137, potassium 3.2, chloride 103, CO2 of 25, BUN 12, creatinine 0.6, and glucose 82. X-ray shows a left-sided pleural effusion. ASSESSMENT: 1. Left pleural effusion, post coronary artery bypass grafting, post aortic valve replacement patient. The effusion is bigger by exam than it looks by x-ray. The x-ray is somewhat obscured by the left side of the heart, but the effusion looks more prominent on the lateral view. 2. Paroxysmal atrial fibrillation, requiring anticoagulation. PLAN: I discussed thoracentesis with the patient. Really drainage is the only option as diuresis does not do much for pleural effusions associated with recent bypass surgery. There is some associated risk with bleeding given that she is on Eliquis, but I am comfortable doing it with her on that medication. She understood the increased risk and was agreeable to proceed. We also discussed other risks including external lung puncture and infection. Plan to get the thoracentesis done later today. She should be able to go home or back to her swing bed afterward. Job ID: [id number]
[2019-03-18 13:52] LABS: Fluid, Triglycerides 26 mg/dL (Not Available); Pleural Fluid, Amylase Less than 30 U/L (Not Available); Pleural Fluid, Glucose 99 mg/dL; Pleural Fluid, LDH 311 U/L (Not Available); Pleural Fluid, Protein 3.9 g/dL
[2019-03-18 14:14] LABS: BF Color Red; BF WBC/Nonhematics Ct. - Manua 1759 /cumm; Body Fluid Source Thoracentesis Fluid; Clarity Cloudy/Turbid (Clear); Tube # 2
[2019-03-18 14:15] LABS: BF RBC Count - Manual 103110 /cumm
--- NOTE | 2019-03-18 14:20 | RAD ---
Chest one view HISTORY: Thoracentesis. COMPARISON: 03/17/2019. FINDINGS: Cardiac silhouette is magnified and enlarged. Left cardiac margin now better visualized wit h decrease in left pleural fluid. Mild left basilar atelectasis remains. Mediastinum is midline with postoperative changes and a dual lead left subclavian cardiac electronic device. No evidence of pneumothorax. IMPRESSION: Decreased left pleural fluid, consistent with thoracentesis. No evidence of complication. Cardiomegaly.
[2019-03-18 15:12] LABS: BF Segmented Neutrophils 12 %; Cell Count Non Hematic 8 %; Lymphocytes 80 %
--- NOTE | 2019-03-18 18:30 | OP ---
DATE OF PROCEDURE: 03/18/2019 PROCEDURE PERFORMED: Left thoracentesis. PREOPERATIVE DIAGNOSIS: Left pleural effusion. POSTOPERATIVE DIAGNOSIS: Left pleural effusion. ANESTHESIA: 1% lidocaine without epinephrine. DESCRIPTION OF PROCEDURE: The left posterior hemothorax was scrubbed with chlorhexidine and draped sterilely at the 5th and 6th interspace at the lateral scapular margin. 1% lidocaine was used to anesthetize the entry site. The pleural space was entered with a [id number]-[id number] catheter. Approximately 700 mL of bloody pleural fluid was removed and sent for appropriate studies. The patient tolerated the procedure well. Job ID: [id number]
[2019-03-18] MEDS: Azithromycin 500 MG in Sodium Chloride 0.9% 250 ML 250 ML IVPB SCH (21:30)
[2019-03-18] MEDS: Rosuvastatin 20 MG TAB PO SCH (21:31)
[2019-03-19] MEDS: Levothyroxine Sodium 125 MCG TAB PO SCH (06:08)
[2019-03-19] MEDS: HYDROcodone/Acetaminophen 5/325 mg Tablet PO PRN ×2 (06:11→15:01)
[2019-03-19] MEDS: Famotidine 20 MG TAB PO SCH (10:06)
[2019-03-19] MEDS: Dronedarone HCl 400 MG TAB PO SCH (10:06)
[2019-03-19] MEDS: Ferrous Sulfate 325 MG TAB PO SCH (10:06)
[2019-03-19] MEDS: Aspirin Chewable 81 MG TAB PO SCH (10:06)
--- NOTE | 2019-03-19 10:34 | PRG ---
DATE OF SERVICE: 03/19/2019 SUBJECTIVE: She is breathing a little better than what she was yesterday. She is having some left shoulder pain. Her pleural fluid demonstrated a lymphocytic hemorrhagic exudate. The pathology is pending. OBJECTIVE: HEENT: Unremarkable. LUNGS: She has some crackles in the left base, right side is clear. CARDIAC: S1 and S2. Regular. ABDOMEN: Soft. EXTREMITIES: No edema. VITAL SIGNS: Her O2 saturation is 93% on room air. ASSESSMENT: Left pleural effusion, post coronary artery bypass grafting surgery, and aortic valve replacement. PLAN: It is my hope that the one time thoracentesis will have fixed the process. I have asked her to follow up in 3 to 4 weeks in the office with repeat chest x-ray. I will call her with cytology results when it become available. Job ID: [id number]
[2019-03-19 12:51] VITALS: TEMP 97.8
[2019-03-19 14:43] VITALS: BMI 34.0
[2019-03-19 16:38] VITALS: BP 107/56
--- NOTE | 2019-03-19 17:14 | DIS ---
DATE OF ADMISSION: 03/17/2019 DATE OF DISCHARGE: 03/19/2019 DISCHARGE DISPOSITION: [facility]. PRIMARY DISCHARGE DIAGNOSES: Left hemorrhagic pleural effusion status post removal of 700 mL with thoracentesis done by Dr. Sales. Recent coronary artery bypass grafting for two-vessel disease and aortic valve replacement, chronic atrial fibrillation, was on Eliquis, which has been held, chronic stage C diastolic heart failure, diabetes mellitus type 2, dyslipidemia, gastroesophageal reflux disease , pacemaker, hypertension, hypothyroidism, history of gastric bypass, chronic anemia. PROCEDURES DONE DURING HOSPITALIZATION: The patient has had left thoracentesis done by Dr. Sales on 03/18/2019 with removal of 700 mL of bloody pleural fluid. Chest x-ray on admission showed left-sided pleural effusion. H and H of 8.7 and 26, platelet count 322, BUN 12, creatinine 0.6. DISCHARGE MEDICATIONS: 1. Nexium 20 mg p.o. daily. 2. Synthroid 125 mcg p.o. daily. 3. Multivitamin one tablet once daily. 4. Crestor 20 mg p.o. at bedtime. 5. Albuterol nebulizer q.8h hourly p.r.n. 6. Aspirin 81 mg p.o. daily. 7. Multaq 400 mg p.o. twice daily. 8. Lasix 40 mg p.o. daily. 9. Drexel p.r.n. for pain. 10. Protonix 40 mg p.o. daily. 11. K-Dur 20 mEq p.o. twice daily. 12. CoQ10 200 mg p.o. at bedtime. 13. Vitamin C 500 mg p.o. daily. ALLERGIES: TO CIPROFLOXACIN, PENICILLIN, TETANUS TOXOID, KEFLEX, CODEINE. INPATIENT CONSULT: Dr. Sales for Pulmonology. DISCHARGE PLAN: The patient to follow up with Dr. Sales in 2 weeks. She needs to follow up with Dr. Maldonado, her cardiothoracic surgeon as before and primary care physician in 1 week. BRIEF COURSE DURING HOSPITALIZATION: The patient initially was sent over from swing bed at [place] for complaints of left-sided pleuritic chest pain. She has had left-sided pleural effusion. The patient has known history of CABG for two vessel disease done on the and was on Eliquis for chronic atrial fibrillation. In view of this history, she has had consultation with Dr. Sales. She has had thoracentesis done with removal of 700 mL of bloody fluid. In view of hemorrhagic pleural effusion, her Eliquis was held and likely needs to be restarted in 2 to 3 weeks if the patient would not develop further effusion. She will need a repeat chest x-ray in 1 week to see if she has reaccumulated fluid. The patient has ambulated with Physical Therapy on the floor. She will be discharged back to [facility] for further recuperation prior to going home. She is otherwise hemodynamically stable. Please note, I have seen and examined the patient on the day of discharge. A total of 35 minutes was spent on discharge plan. Job ID: [id number] MTDD
--- NOTE | 2019-03-20 04:01 | PQF ---
[employer] Crystal Reports Winform Viewer MANNIE CALVOCHRISTIANO IBARRA MD [id number] CLINICAL DOCUMENTATION CLARIFICATION FORM: POST DISCHARGE Addendum to original discharge summary date: ____ Late entry note date: __ DATE: 03/20/19 ATTN: Christiano Recinos Please exercise your independent, professional judgment in responding to the clarification form. Clinical indicators are provided on the bottom of this form for your review Can you please further specify the diagnosis below based on the clinical indicators? Please check appropriate box(s): [ x] hemorrhagic pleural effusion due to Post operative CABG [ ] hemorrhagic pleural effusion not due to Post operative CABG [ ] Other diagnosis please specify [ ] Unable to determine In addition, please specify: Present on Admission (POA): [ x ] Yes [ ] No [ ] Unable to determine CLINICAL INDICATORS - SIGNS / SYMPTOMS / LABS H and P pg.3- CAD s/p CABG and AVR on 02/26/19 continue home meds DS pg.1 03/19-Left hemorrhagic pleural effusion status post removal of 700ml with thoracentesis DS pg.1 03/19-Recent coronary bypass grafting for two vessel disease and aortic valve placement RISK FACTORS Hypertension- H and P pg.3 DM- H and P pg.3 Hypothyroidism-H and P pg.3 Paroxysmal AFib-H and P pg.3 CAD- s/p CABG-H and P pg.3 TREATMENT: Pulmonary Consult- Dr. Sales 03/18 Chest X-ray 03/18 Thoracentesis- Op report Dr. Sales (This form is maintained as a part of the permanent medical record) 2014 [employer]. All Rights Reserved Kai [email or web address] [not provided] MTDD
--- NOTE | 2019-03-20 04:06 | PQF ---
[employer] Cereal Popper Crystal Reports Winform Viewer UMESH,CHRISTIANO SMITH MD [id number] CLINICAL DOCUMENTATION CLARIFICATION FORM: POST DISCHARGE Addendum to original discharge summary date: ____ Late entry note date: __ DATE: 03/20/19 ATTN: Christiano Recinos Please exercise your independent, professional judgment in responding to the clarification form. Clinical indicators are provided on the bottom of this form for your review Can you please further specify if LLL Pneumonia is ruled in or ruled out? LLL Pneumonia [ ] Ruled in diagnosis [ ] Continue to treat [ ] Resolved [ x ] Ruled out diagnosis [ ] Cannot rule out diagnosis [ ] Other diagnosis please specify [ ] Unable to determine In addition, please specify: Present on Admission (POA): [ ] Yes [x ] No [ ] Unable to determine For continuity of documentation, please document condition throughout progress notes and discharge summary. Thank You. CLINICAL INDICATORS - SIGNS / SYMPTOMS / LABS H and P pg.1 03/19- today she had a CXR performed revealing LLL pneumonia and L pleural effusion H and P 03/19 pg.2- LLL pneumonia with pleural effusion- continue lasix 40mg PO daily, start azithromycin DS pg.1- Discharge diagnosis : Left hemorrhagic pleural effusion RISK FACTORS Hypertension- H and P pg.3 DM- H and P pg.3 Hypothyroidism-H and P pg.3 Paroxysmal aFib-H and P pg.3 CAD- s/p CABG-H and P pg.3 Pleural effusion- H and P ph.2 TREATMENTS Pulmonary Consult- Dr. Sales 03/18 Chest X-ray 03/18 Thoracentesis- Op report Dr. Sales IV Fluids- AUG 26 Azithromycin 500mg IV- AUG 26 (This form is maintained as a part of the permanent medical record) 2014 [employer]. All Rights Reserved Kai [email or web address] [not provided] MTDD
== END 2019-03-19 15:30 | disposition swing bed (61) | DRG 920 ==
LOC: 2NO 17:29
PROVIDERS: ADMIT Family Medicine; ATTEND Family Medicine
PROC: 0W9B30Z Drainage of Left Pleural Cavity with Drainage Device, Percutaneous Approach (ICD-10-PCS; principal; 2019-03-18)
DX: I97.611 Postprocedural hemorrhage of a circulatory system organ or structure following cardiac bypass (principal); J90 Pleural effusion, not elsewhere classified; I50.32 Chronic diastolic (congestive) heart failure; Y83.2 Surgical operation with anastomosis, bypass or graft as the cause of abnormal reaction of the patient, or of later complication, without mention of misadventure at the time of the procedure; I25.10 Atherosclerotic heart disease of native coronary artery without angina pectoris; I48.0 Paroxysmal atrial fibrillation; I11.0 Hypertensive heart disease with heart failure; E11.9 Type 2 diabetes mellitus without complications; E03.9 Hypothyroidism, unspecified; D64.9 Anemia, unspecified; K21.9 Gastro-esophageal reflux disease without esophagitis; Z88.0 Allergy status to penicillin; Z79.01 Long term (current) use of anticoagulants; Z95.1 Presence of aortocoronary bypass graft; Z95.2 Presence of prosthetic heart valve; Z88.1 Allergy status to other antibiotic agents; Z88.7 Allergy status to serum and vaccine; Z88.5 Allergy status to narcotic agent
CPT/HCPCS: 36415; 36416; 71045; 80048; 82150; 82945; 83615; 83880; 83986; 84157; 84478; 85025; 85060; 87070; 87116; 87205; 87206; 88112; 88305; 89051; J0456; J1642; J2405; J7050

== ENCOUNTER 2019-05-01 23:46 | Observation (INO) | payer MEDICARE, BC ==
[2019-05-02] MEDS ORDERED: HYDROcodone/Acetaminophen 5/325 mg Tablet ONE (01:48)
[2019-05-02 04:59] VITALS: BMI 31.0
[2019-05-02] MEDS ORDERED: Ondansetron ODT 4 MG TAB PO PRN (05:08)
[2019-05-02] MEDS ORDERED: Nitroglycerin 0.4 MG TAB (25 Tab Bottle) PO PRN (05:08)
[2019-05-02] MEDS ORDERED: Acetaminophen 500 MG TAB PO PRN (05:08)
[2019-05-02] MEDS ORDERED: hydrALAZINE 20 MG/ML VIAL SLOW IVP PRN (05:08)
[2019-05-02] MEDS ORDERED: Ondansetron PF 4 MG/2 ML Vial IVP PRN (05:08)
[2019-05-02] MEDS ORDERED: Non-Formulary Item 1 EACH (Ondansetron Hcl [Zofran] 4 MG) PO SCH (06:00)
[2019-05-02] MEDS ORDERED: HYDROcodone/Acetaminophen 5/325 mg Tablet PO SCH ×2 (06:00)
[2019-05-02] MEDS ORDERED: Levothyroxine Sodium 125 MCG TAB PO SCH (06:00)
--- NOTE | 2019-05-02 06:56 | HP ---
PRIMARY CARE PROVIDER: Fernando Barriga MD PRIMARY ELECTRICAL LOGGING ENGINEER: Clayton Carter MD CHIEF COMPLAINT: Chest pain. HISTORY OF PRESENT ILLNESS: This is a 74-year-old female with a significant history of coronary artery disease, status post coronary artery bypass grafting x2 vessels, 03/08/2019. The patient also status post aortic valve replacement on 02/26/2019. Postoperatively, the patient had complications of a left pleural effusion, undergoing thoracentesis with removal of approximately 700 mL of bloody effusion. The patient states she has undergone cardiac rehabilitation and has been doing well with her activities and exercise regimen. The patient noted increasing chest pressure and central pain after performing her cardiac rehabilitation regimen. The patient described the sensation as someone "punching me" with waves of sensation lasting a few seconds and resolving spontaneously. The patient denied any increased cough, congestion, or fever. The patient denied any direct trauma or injury, but has noted serous drainage expressed from the upper portion of her sternal incision intermittently over the last 24 to 48 hours. The patient does state [place] relieves her chest pain and takes it approximately 3 times daily. The patient states she has been compliant with her medication regimen and exercise routine. In the emergency room, the patient underwent general evaluation including chest imaging showing evidence of left pleural effusion. The patient received [place], transdermal nitroglycerin paste, morphine sulfate, and IV Lasix. PAST MEDICAL HISTORY: 1. Coronary artery disease, status post coronary artery bypass grafting x2 vessels. 2. Diabetes mellitus type 2, resolving after gastric sleeve. 3. Hypothyroidism. 4. Atrial fibrillation, status post pacemaker placement. 5. Severe aortic stenosis, status post porcine aortic valve replacement. 6. Hypertension. 7. Hyperlipidemia. 8. Lumbar stenosis. 9. Recurrent pleural effusions, status post coronary artery bypass grafting. 10. Hypothyroidism. 11. Depression. PAST SURGICAL HISTORY: 1. Status post coronary artery bypass grafting x2 vessels to the PDA and LAD, 03/08/2019. 2. Status post aortic valve replacement with #21 magna valve, 02/26/2019. 3. Status post thoracentesis. 4. Status post cardiac catheterization. 5. Status post pacemaker placement. 6. Status post gastric sleeve. 7. Status post carpal tunnel release, bilateral wrist. 8. Status post total knee arthroplasty. 9. Status post cholecystectomy. 10. Status post section. 11. Status post abdominal hernia repair. 12. Status post right shoulder repair x2. 13. Status post tonsillectomy. CURRENT MEDICATIONS: 1. Nexium 20 mg p.o. daily. 2. [place] 5/325 mg 1 to 2 tablets p.o. q.6 hours p.r.n. pain. 3. Levothyroxine 125 mcg p.o. daily. 4. Multivitamin 1 tablet p.o. daily. 5. Zofran 4 mg p.o. q.6 hours p.r.n. 6. Crestor 20 mg p.o. at bedtime. 7. Enteric-coated aspirin 81 mg p.o. daily. 8. Multaq 400 mg p.o. b.i.d. 9. Ferrous sulfate 325 mg p.o. daily. 10. MiraLAX 17 g p.o. daily. 11. Coenzyme Q10 200 mg p.o. at bedtime. ALLERGIES: CIPROFLOXACIN, PENICILLIN, TETANUS VACCINE. FAMILY HISTORY: Positive for hypertension and coronary artery disease. SOCIAL HISTORY: . 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 Occasional alcohol use. No tobacco or illicit drug use. Functional of all activities of daily living. REVIEW OF SYSTEMS: CONSTITUTIONAL: Negative for weight loss or gain, ability to conduct usual activities. SKIN: Negative for rash, itching. EYES: Negative for double vision, pain. ENT/MOUTH: Negative for nose bleeding, neck stiffness, pain, tenderness. CARDIOVASCULAR: Negative for palpitations, dyspnea on exertion, orthopnea. RESPIRATORY: Negative for shortness of breath, wheezing, cough, hemoptysis, fever or night sweats. GASTROINTESTINAL: Negative for poor appetite, abdominal pain, heartburn, nausea, vomiting, constipation, or diarrhea. GENITOURINARY: Negative for urgency, frequency, dysuria, nocturia. MUSCULOSKELETAL: Negative for pain, swelling. NEUROLOGIC/PSYCHIATRIC: Negative for anxiety, depression. ALLERGY/IMMUNOLOGIC: Negative for skin rash, bleeding tendency. Otherwise negative except as stated per HPI. PHYSICAL EXAMINATION: VITAL SIGNS: On admission, blood pressure 170/97, pulse 65, respiratory rate 14, temperature 98.2 degrees Fahrenheit, O2 saturation 98% on room air. GENERAL APPEARANCE: This is a 74-year-old female, alert and oriented x3, pleasant, responsive, in no acute distress. HEENT: Pupils are equal, round, reactive to light and accommodation. Extraocular muscles are intact. No scleral icterus. No conjunctival injection. Nares are patent. OP is clear. Teeth in good fair repair. NECK: Supple. No cervical adenopathy. No thyromegaly. No carotid bruits. No JVD appreciated. Cervical spine with full active and passive range of motion. No meningeal signs noted. CHEST: Diminished breath sounds in the left base. CARDIOVASCULAR EXAM: S1, S2 with 2/6 systolic ejection murmur loudest in the right upper sternal border. Midline sternal incision intact without expressible discharge. ABDOMEN: Rounded, soft, nontender, and nondistended. Bowel sounds are positive in all 4 quadrants. There is no hepatosplenomegaly. No abdominal bruits. No rebound or guarding appreciated. EXTREMITIES: Warm and dry with fair turgor. No clubbing, cyanosis, or asymmetric edema appreciated. Pulses palpable distally at the dorsalis pedis, posterior tibial, and popliteal arteries bilaterally. Capillary refill less than 2 seconds. NEUROLOGIC: Cranial nerves 2 through 12 are grossly intact. No focal or lateralizing signs appreciated. PERTINENT LABORATORY AND X-RAY FINDINGS: Basic metabolic profile within normal limits. Calcium 9.0, magnesium 1.9. LFTs within normal limits. Troponin I negative x2. TSH 0.71, 12/05/2018. Portable chest x-ray dated 05/01/2019, showed pulmonary vascular prominence. Left pleural effusion increased in size. EKG dated 05/01/2019, by my interpretation shows electronic ventricular pacing with heart rates in the 60s. ASSESSMENT AND PLAN: 1. Chest pain. The patient will be observed on the telemetry unit. Likely patient's presentation consistent with left pleural effusion. See #2 below. Serial cardiac biomarkers negative x2. Continue aspirin 81 mg daily. Consult Cardiology Service for any further recommendations. 2. Recurrent left pleural effusion. Consult Pulmonology Service for consideration for thoracentesis. 3. Coronary artery disease, status post coronary artery bypass grafting x2 vessels. Stable currently. Continue home regimen and monitor clinical response. No current evidence to suggest acute coronary syndrome. 4. Hypothyroidism. Continue levothyroxine 125 mcg daily. 5. Hyperlipidemia. Continue Crestor 20 mg p.o. at bedtime. 6. Prophylaxis. SCDs while in bed. Pepcid 20 mg p.o. b.i.d. CODE STATUS: Full. Surrogate medical decision maker is the patient's spouse. Job ID: [id number]
[2019-05-02 07:21] LABS: Troponin I 0.018 ng/mL (< 0.028)
[2019-05-02] MEDS ORDERED: Ferrous Sulfate 325 MG TAB PO SCH (08:00)
[2019-05-02] MEDS ORDERED: Aspirin Chewable 81 MG TAB PO SCH (09:00)
[2019-05-02] MEDS ORDERED: Famotidine 20 MG TAB PO SCH (09:00)
[2019-05-02] MEDS ORDERED: Polyethylene Glycol 3350 17 GM Packet PO SCH (09:00)
[2019-05-02] MEDS: Dronedarone HCl 400 MG TAB PO SCH ×3 (09:24→17:28)
--- NOTE | 2019-05-02 09:37 | CON ---
DATE OF CONSULTATION: 05/02/2019 REASON FOR CONSULTATION: Pleural effusion. HISTORY OF PRESENT ILLNESS: This is a 74-year-old female, who presented to the hospital yesterday with midsternal chest pain that was spasmodic in nature. She had a chest x-ray done in [place], which showed a small left pleural effusion, which actually looks much smaller than the last time I tapped the effusion over a month ago. Prior to yesterday, she has been doing very well. She does complain of some occasional serous drainage from the upper part of her sternotomy incision. She has had no fever or chills. PAST MEDICAL HISTORY: 1. Coronary artery disease, requiring bypass surgery. 2. Post CABG pleural effusion. 3. Diabetes mellitus. 4. Hypothyroidism. 5. Atrial fibrillation. 6. Severe aortic stenosis, requiring valve replacement. 7. Hypertension. 8. Hyperlipidemia. 9. Lumbar stenosis. 10. Hypothyroidism. 11. Depression. PAST SURGICAL HISTORY: 1. Coronary artery bypass grafting surgery x2. 2. Aortic valve replacement. 3. Thoracentesis. 4. Cardiac catheterization. 5. Pacemaker placement. 6. Gastric sleeve. 7. Carpal tunnel release. 8. Cholecystectomy. 9. . 10. Abdominal hernia repair. 11. Right shoulder surgery. 12. Tonsillectomy. MEDICATIONS: Prior to admission; 1. Nexium. 2. [place]. 3. Levothyroxine. 4. Multivitamin. 5. Zofran. 6. Crestor. 7. Enteric-coated aspirin. 8. Multaq. 9. Iron sulfate. 10. MiraLAX. 11. Coenzyme Q10. ALLERGIES: CIPRO, PENICILLIN, AND TETANUS VACCINE. FAMILY MEDICAL HISTORY: Remarkable for hypertension and coronary artery disease. SOCIAL HISTORY: Nonsmoker. Does not consume alcohol. 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 REVIEW OF SYSTEMS: Otherwise, negative. PHYSICAL EXAMINATION: VITAL SIGNS: Temperature 98.6, pulse 68, respirations 16, O2 saturation 96%, and blood pressure 169/74. GENERAL: She is awake, alert, in no distress. HEENT: Unremarkable. NECK: No adenopathy, JVD, or bruits. LUNGS: Clear anteriorly. She has no dullness to percussion posteriorly. She has clear breath sounds posteriorly. CARDIAC: S1 and S2. Regular. ABDOMEN: Soft and nontender. EXTREMITIES: No edema. I see no drainage from the upper part of her sternotomy scar. LABORATORY DATA: White blood cell count 6.7, hematocrit 38.6, and platelet count 254. Sodium 146, potassium 3.9, BUN 11, and creatinine 0.6. IMAGING DATA: Chest x-ray was reviewed by myself personally. ASSESSMENT: Very small left pleural effusion, which is not large enough to tap. This is not the cause of her chest pain. RECOMMENDATION: No thoracentesis is planned. Job ID: [id number]
[2019-05-02] MEDS ORDERED: Furosemide 20 MG TAB PO SCH (10:30)
--- NOTE | 2019-05-02 12:07 | CON ---
DATE OF CONSULTATION: HISTORY OF PRESENT ILLNESS: Karlee Ang is a 74-year-old white female, initially evaluated in 04/2014. At that time, she was referred for preoperative evaluation before gastric sleeve surgery by Dr. Amaya. She complained of some right chest pressure, that occurred with pulling the wagon with her right arm. She underwent Lexiscan Cardiolite testing, which revealed a proximal to distal anterior and apical area of ischemia. She underwent cardiac catheterization, which revealed normal left ventricular function with ejection fraction of 55% to 60%. The proximal LAD was calcified. There was a 20% mid to distal LAD, 20% first diagonal, and 20% proximal circumflex. The right coronary artery had a 60% proximal stenosis and a 20% mid stenosis. It was felt best to treat her medically and she underwent gastric sleeve surgery by Dr. Amaya without incident. She continued to be followed in the office after that. She would have some chest pain, which would last 1 minute, and occur mostly at rest. She would walk 1 mile multiple times per week without any symptoms. In 02/2016, she was admitted with a very rapid heartbeat and found to be in atrial fibrillation. This was a new sensation for her. She had chest pressure with that, which lasted 18 hours continuously, but stopped when she converted to sinus rhythm. Despite 18 hours of continuous chest pressure, cardiac enzymes were unremarkable. She was given intravenous metoprolol and digoxin and placed on Lovenox. She was placed on Eliquis and Multaq. She eventually could not afford the Multaq and she was switched to propafenone 150 t.i.d. On 09/03/2016, she presented to a hospital in [place], when she was visiting there with dizziness and near syncope. She had complete heart block and 2:1 AV block. A dual-chamber pacemaker was placed and she continued to do well. On pacemaker followup, she continued to have episodes of atrial fibrillation; however, they were extremely short lived and she continued on Eliquis. On 01/19/2019, she complained of chest pressure radiating to her back. This would last for 2 minutes. At times, she would also feel her heart racing at rest. She underwent cardiac PET scan, which revealed inferoapical ischemia. She was also found to have aortic stenosis on echo. She underwent cardiac catheterization, which revealed aortic valve area of 0.92 sq cm. There was a 60% mid LAD, 70% and 20% mid RCA stenosis. She then underwent aortic valve replacement with bioprosthetic valve and CABG x2 with MEDINA to the LAD and vein graft to the right PDA. She was discharged on Multaq for suppression of her atrial fibrillation and Eliquis was restarted. She went to residential in [place]. She was again admitted on 2018 with left-sided chest pain and found to have left pleural effusion. She underwent thoracentesis with removal of 700 mL of bloody pleural fluid by Dr. Sales. Eliquis was discontinued and has not been resumed. She was seen in the office on 03/20 and 04/10, overall doing well, progressed in her cardiac rehab without any specific complaints. Then, yesterday, she had sharp pain to the right of her sternum, occurring multiple times, each lasting several seconds. She also has noted some cloudy drainage from her sternal incision. Chest x-ray revealed small left pleural effusion and she is admitted for further evaluation. She denies any shortness of breath. PAST MEDICAL HISTORY: 1. Hypertension. 2. Diabetes. 3. Hypercholesterolemia. 4. Hypothyroidism. 5. Coronary artery disease. 6. Paroxysmal atrial fibrillation. 7. Complete heart block with pacemaker placement. 8. Lumbar spinal stenosis. 9. Left pleural effusion. PAST SURGICAL HISTORY: 1. Pacemaker placement. 2. CABG x2 and aortic valve replacement with bioprosthetic valve. 3. Bilateral carpal tunnel surgery. 4. Cholecystectomy. 5. Gastric sleeve surgery. 6. section. 7. Hernia repair. 8. Right shoulder repair. 9. Tonsillectomy. 10. I and D of leg cellulitis. 11. Lithotripsy. 12. Thyroidectomy. 13. Back surgery. MEDICATIONS: 1. Nexium 20 daily. 2. [place] p.r.n. 3. Levothyroxine 125 mcg daily. 4. Multivitamin one daily. 5. Zofran 4 mg p.r.n. 6. Crestor 20 mg nightly. 7. Ecotrin 81 daily. 8. Multaq 400 mg b.i.d. 9. Ferrous sulfate 325 daily. 10. MiraLAX daily. 11. CoQ10 of 200 mg nightly. 12. Eliquis has not been restarted. ALLERGIES: CODEINE, PENICILLIN, CEPHALEXIN, TETANUS, AND CIPRO. SOCIAL HISTORY: She occasionally drinks. She does not smoke. 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 REVIEW OF SYSTEMS: A 12-point review of systems is otherwise unremarkable. PHYSICAL EXAMINATION: VITAL SIGNS: Blood pressure 169/74 and pulse of 68. HEENT: PERRL. NECK: Supple. CHEST: Clear except for somewhat diminished breath sounds at the left base. CARDIOVASCULAR: S1 and S2 normal without any S3 or S4. There is no rub. There is a 2/6 systolic ejection murmur along the right upper sternal border. Midline incision looked well healed without significant erythema and I do not see any drainage. ABDOMEN: Normal bowel sounds without tenderness or organomegaly. Abdomen is obese. EXTREMITIES: No clubbing, cyanosis, or edema. NEUROLOGIC: Grossly intact. LABORATORY DATA: EKG reveals atrial sensing, ventricular pacing. Echocardiogram revealed normal left ventricular function with ejection fraction of 60% to 65%, evidence for diastolic dysfunction, pacing wire in the right ventricle, moderate left atrial enlargement, mitral annular calcification, moderate mitral regurgitation, normally functioning bioprosthetic aortic valve, and mild-to- moderate tricuspid regurgitation. Sodium 146, potassium 3.9, chloride 110, carbon dioxide 27, BUN 11, and creatinine 0.68. BNP 407.0. Troponin-Is are normal. Hemoglobin 11.5, hematocrit 38.6, white count 6700, and platelets 254,000. Chest x-ray reveals small left pleural effusion. IMPRESSION: 1. Chest pain to the right of the sternum. I imagine that this is related to her chest incision. She has complained of some cloudy fluid drainage and certainly sternal infection needs to be considered. However, the overlying skin does not show any significant erythema. 2. Small left pleural effusion, which is much smaller than prior to her thoracentesis 6 weeks ago. At that time, she had left chest discomfort, which she has not been complaining of at the present time. 3. Status post coronary artery bypass graft x2 and aortic valve replacement. 4. Paroxysmal atrial fibrillation. 5. Pacemaker placement while visiting in [place], [place] pacemaker. 6. Hypercholesterolemia. 7. Hypertension. 8. Diabetes. 9. Obesity status post gastric sleeve. 10. Hypothyroidism. PLAN: Echocardiogram does show some degree of diastolic dysfunction and she did state that she had some peripheral edema until she was given intravenous Lasix. Also, her chest x-ray shows slight enlargement of the pulmonary vasculature. I doubt that her current pain is related to her left pleural effusion. We will await input by Dr. Betancourt. Job ID: [id number] [facility]
[2019-05-02] MEDS ORDERED: HYDROcodone/Acetaminophen 5/325 mg Tablet PO PRN (14:00)
[2019-05-02 16:17] VITALS: BP 135/65; TEMP 98.4
--- NOTE | 2019-05-02 19:52 | DIS ---
DATE OF ADMISSION: 05/02/2019 DATE OF DISCHARGE: 05/02/2019 DISCHARGE DISPOSITION: Home. FOLLOWUP: 1. Follow up with primary care physician, Dr. Barriga in 1 week. 2. Follow up with Dr. Clayton Carter and Dr. Betancourt as scheduled. ALLERGIES: THE PATIENT IS ALLERGIC TO CIPROFLOXACIN, PENICILLIN, CEPHALEXIN, TETANUS TOXOID, AND CODEINE. DISCHARGE MEDICATIONS: 1. Lasix 20 mg daily. 2. Potassium chloride 10 mEq daily. All other home medications were left unchanged. Basic metabolic profile after 1 week is recommended. Primary care physician advised to follow. The patient was seen and examined on the day of discharge. Denies any new complaints. No chest pain or shortness of breath at the time of discharge is reported. BRIEF HOSPITAL COURSE: The patient is a 74-year-old female with recent coronary artery bypass grafting, presented to the hospital last night with chest discomfort along with shortness of breath. She also has a history of left-sided pleural effusion requiring thoracentesis. Please refer to the history and physical by Dr. Davion Adams for further details. The patient was admitted to the hospital with a diagnosis of chest discomfort along with shortness of breath. Chest x-ray showed pulmonary vascular congestion with left-sided pleural effusion. Echocardiogram showed left ventricular ejection fraction of 60% to 65% with diastolic dysfunction, moderate mitral regurgitation, [id number] tricuspid regurgitation. She was evaluated by Cardiology, Dr. Carter; Pulmonary Dr. Sales, as well as Cardiovascular, Dr. Betancourt. She showed good improvement with IV diuretics. There was no indication for thoracentesis per Dr. Sales. She has been cleared by consultants for discharge. Low-dose Lasix has been added. She was advised to restrict fluids to 2 L per day. She has been cleared by consultants for discharge. FINAL DIAGNOSES: 1. Chest discomfort/shortness of breath secondary to acute on chronic diastolic heart failure exacerbation. 2. Left-sided pleural effusion. No need for thoracentesis per Dr. Sales. 3. Coronary artery disease, status post coronary artery bypass grafting. 4. Status post aortic valve replacement at the time of CABG. 5. Hypertension. 6. Paroxysmal atrial fibrillation that was discontinued due to bloody effusion. 7. Depression, mild. Stable. 8. Hypothyroidism. 9. Gastroesophageal reflux disease. 10. Deconditioning. 11. Chronic low back pain. 12. History of gastric bypass. 13. Hyperlipidemia. 14. History of diabetes mellitus type 2. CODE STATUS: Full code. Surrogate decision maker, the patient makes her own decision with the help of her family. Plan was discussed with the patient in detail. She stated understanding. Job ID: [id number]
[2019-05-02] MEDS ORDERED: Multivitamin W/ Minerals 1 TAB PO SCH (21:00)
[2019-05-02] MEDS ORDERED: Ubidecarenone 50 MG CAP PO SCH (21:00)
[2019-05-02] MEDS ORDERED: Rosuvastatin 10 MG TAB PO SCH (21:00)
[2019-05-03] MEDS ORDERED: Furosemide 20 MG TAB PO SCH (09:00)
== END 2019-05-02 18:03 | disposition home or self-care (01) ==
LOC: ERS 23:46 → 2SW 05-02 00:40
PROVIDERS: ADMIT Family Medicine; ATTEND Family Medicine
DX: I11.0 Hypertensive heart disease with heart failure (principal); I50.33 Acute on chronic diastolic (congestive) heart failure; J90 Pleural effusion, not elsewhere classified; I25.10 Atherosclerotic heart disease of native coronary artery without angina pectoris; I48.0 Paroxysmal atrial fibrillation; F32.9 Major depressive disorder, single episode, unspecified; E89.0 Postprocedural hypothyroidism; K21.9 Gastro-esophageal reflux disease without esophagitis; G89.29 Other chronic pain; M54.5 Low back pain; E78.5 Hyperlipidemia, unspecified; E11.9 Type 2 diabetes mellitus without complications; M48.061 Spinal stenosis, lumbar region without neurogenic claudication; I44.2 Atrioventricular block, complete; E66.9 Obesity, unspecified; Z68.31 Body mass index [BMI] 31.0-31.9, adult; Z79.82 Long term (current) use of aspirin; Z79.899 Other long term (current) drug therapy; Z88.0 Allergy status to penicillin; Z88.1 Allergy status to other antibiotic agents; Z88.5 Allergy status to narcotic agent; Z88.7 Allergy status to serum and vaccine; Z95.1 Presence of aortocoronary bypass graft; Z95.3 Presence of xenogenic heart valve; Z98.84 Bariatric surgery status
CPT/HCPCS: 82962; 84484 ×2; 93005; 93306; 94760; 99285; G0378 ×2; 36415; 36416; Q0162

== ENCOUNTER 2019-07-23 10:22 | Outpatient (CLI) | payer MEDICARE, BC ==
--- NOTE | 2019-07-23 12:36 | RAD ---
CHEST 2 VIEWS: HISTORY: Dyspnea. COMPARISON: 04/02/2019. FINDINGS: Postop midline sternotomy. Left ICD. Mild cardiomegaly. Minimal blunting of the left costophrenic angle but with overall improvement in the appearance from the prior study. Stable right chest. IMPRESSION: Minimal blunting in the left costophrenic angle, improved from prior study. Borderline heart size al so improved from prior study. No significant new process. Atherosclerosis of the aorta. POS: [facility]
== END 2019-07-23 10:23 | disposition home or self-care (01) ==
LOC: RAD 10:22
PROVIDERS: ATTEND Internal Medicine Critical Care Medicine
DX: R06.00 Dyspnea, unspecified (principal); I70.0 Atherosclerosis of aorta
CPT/HCPCS: 71046

== ENCOUNTER 2020-08-28 14:28 | Outpatient (CLI) | payer MEDICARE, BC ==
[2020-08-28 16:39] LABS: #Basophils 0.1 10x3/uL (0.0-0.2); #Monocytes 0.7 10x3/uL (0.0-1.1); #Neutrophils 4.1 10x3/uL (1.5-8.4); %Basophils 0.9 % (0.0-2.0); %Eosinophils 0.6 % (0.0-6.0); %Lymphocytes 28.4 % (18.0-47.0); %Monocytes 10.1 % (0.0-10.0); %Neutrophils 59.6 % (40.0-75.0); Hemoglobin 13.6 g/dL (12.0-15.5); Mean Corpuscular HGB CONC 31.6 g/dL (32.0-36.0); Mean Corpuscular Hemoglobin 30.4 pg (27.0-33.0); Mean Platelet Volume 10.8 fl (7.4-10.4); Platelet Count 164 10x3/uL (150-450); Red Blood Cell (RBC) Count 4.48 10x6/uL (3.90-5.03); White Blood Cell (WBC) Count 6.9 10x3/uL (3.5-10.5)
[2020-08-28 17:03] LABS: Anion Gap 11 mmol/L (10-20); BUN (Urea Nitrogen) 22 mg/dL (9.8-20.1); Calc. Creatinine Clearance 0 mL/min (70-130); Calcium 9.1 mg/dL (7.8-10.44); Carbon Dioxide 27 mmol/L (23-31); Chloride 108 mmol/L (98-107); Glucose 65 mg/dL (83-110); Potassium 4.5 mmol/L (3.5-5.1); Sodium 141 mmol/L (136-145)
[2020-08-28 18:51] LABS: Bilirubin Neg (Negative); Blood, Urine Negative (Negative); Clarity Slightly Cloudy (Clear); Glucose, Urine (Dipstick) Normal (Negative); Ketone, Urine Negative (Negative); Leukocyte Negative (Negative); Nitrite Negative (Negative); Protein, Urine (Dipstick) Negative (Neg-Trace); Urobilinogen Normal mg/dL (Less than 2)
[2020-08-28 19:01] LABS: Bacteria/HPF None Seen HPF (None Seen); RBC/HPF 0-3 HPF (0-3); Squamous Epithelial 0-3 HPF (0-3); WBC/HPF 0-3 HPF (0-3)
[2020-08-29 04:32] LABS: SARS-CoV-2 PCR by NAA Not Detected (NotDetected)
== END 2020-08-28 14:29 | disposition home or self-care (01) ==
LOC: LABBT 14:28
PROVIDERS: ATTEND Orthopaedic Surgery Hand Surgery
DX: Z01.818 Encounter for other preprocedural examination (principal); Z01.812 Encounter for preprocedural laboratory examination; M18.11 Unilateral primary osteoarthritis of first carpometacarpal joint, right hand; Z20.822 Contact with and (suspected) exposure to COVID-19
CPT/HCPCS: 80048; 81001; 85025; 93005; U0003; U0005; 87635; 93010

== ENCOUNTER 2020-09-02 06:09 | Day surgery (SDC) | payer MEDICARE, BC ==
[2020-09-01 09:11] VITALS: BMI 34.0
[2020-09-02] MEDS ORDERED: Clindamycin/D5W 900 mg/50 ml Premix Bag ONE (07:14)
[2020-09-02] MEDS ORDERED: Midazolam HCl 2 mg/2 ml Vial ONE (08:12)
[2020-09-02] MEDS ORDERED: Fentanyl 100 MCG/2 ML VIAL ONE ×3 (08:12→12:43)
[2020-09-02] MEDS ORDERED: Dexmedetomidine 200 MCG/2 ML VIAL ONE (08:28)
[2020-09-02] MEDS ORDERED: Phenylephrine 10 MG/ML VIAL ONE (08:28)
[2020-09-02] MEDS ORDERED: Sodium Chloride 0.9% 10 ML ONE (08:30)
[2020-09-02] MEDS ORDERED: Bupivacaine PF 0.5% 30 ML VIAL ONE (08:30)
[2020-09-02] MEDS ORDERED: Bacitracin Zinc Ointment 30 gm TUBE ONE (08:30)
[2020-09-02] MEDS ORDERED: PHENYLEPHRINE-NS 100 MCG/ML 10 ML SYRINGE ONE (08:52)
[2020-09-02] MEDS ORDERED: Bupivacaine HCl 0.5%/Epinephrine 1:200,000/PF 30 ml Vial ONE (08:52)
[2020-09-02] MEDS ORDERED: Lidocaine 1% PF 5 ML VIAL ONE (08:52)
[2020-09-02] MEDS ORDERED: Ondansetron PF 4 MG/2 ML Vial ONE (08:52)
[2020-09-02] MEDS ORDERED: Dexamethasone 20 MG/5 ML VIAL ONE (08:52)
[2020-09-02] MEDS ORDERED: PROPOFOL 200 MG/20 ML VIAL ONE (08:52)
[2020-09-02] MEDS ORDERED: HYDROcodone/Acetaminophen 5/325 mg Tablet ONE (14:16)
== END 2020-09-02 15:10 | disposition home or self-care (01) ==
LOC: SDC 06:09
PROVIDERS: ATTEND Orthopaedic Surgery Hand Surgery
PROC: 0LX50ZZ Transfer Right Lower Arm and Wrist Tendon, Open Approach (ICD-10-PCS; principal; 2020-09-02)
PROC: 0RUS07Z Supplement Right Carpometacarpal Joint with Autologous Tissue Substitute, Open Approach (ICD-10-PCS; 2020-09-02)
PROC: 3E0T3BZ Introduction of Anesthetic Agent into Peripheral Nerves and Plexi, Percutaneous Approach (ICD-10-PCS; 2020-09-02)
DX: M18.11 Unilateral primary osteoarthritis of first carpometacarpal joint, right hand (principal); G89.18 Other acute postprocedural pain; I10 Essential (primary) hypertension; I25.10 Atherosclerotic heart disease of native coronary artery without angina pectoris; E11.9 Type 2 diabetes mellitus without complications; E03.9 Hypothyroidism, unspecified; K21.9 Gastro-esophageal reflux disease without esophagitis; Z79.01 Long term (current) use of anticoagulants; Z79.899 Other long term (current) drug therapy; Z88.0 Allergy status to penicillin; Z88.1 Allergy status to other antibiotic agents; Z88.5 Allergy status to narcotic agent; Z88.7 Allergy status to serum and vaccine
CPT/HCPCS: 76000; C1713; J1100; J2250; J2370; J2405; J2704; J3010; J3490; S0020

== ENCOUNTER 2020-11-19 10:06 | Outpatient (CLI) | payer MEDICARE, BC ==
[2020-11-19 12:40] LABS: Bilirubin 1+ (Negative); Blood, Urine Negative (Negative); Clarity Slightly Cloudy (Clear); Glucose, Urine (Dipstick) Normal (Negative); Ketone, Urine 5 mg/dL (Negative); Leukocyte 25 (Negative); Nitrite Negative (Negative); Protein, Urine (Dipstick) 15 mg/dl (Neg-Trace)
[2020-11-19 12:47] LABS: #Basophils 0.1 10x3/uL (0.0-0.2); #Eosinphils 0.1 10x3/uL (0.0-0.5); #Monocytes 0.5 10x3/uL (0.0-1.1); #Neutrophils 2.7 10x3/uL (1.5-8.4); %Eosinophils 1.2 % (0.0-6.0); %Lymphocytes 33.5 % (18.0-47.0); %Neutrophils 54.1 % (40.0-75.0); Hemoglobin 13.5 g/dL (12.0-15.5); Mean Corpuscular HGB CONC 32.4 g/dL (32.0-36.0); Mean Corpuscular Hemoglobin 30.4 pg (27.0-33.0); Mean Corpuscular Volume 93.9 fl (81.6-98.3); Mean Platelet Volume 10.3 fl (7.4-10.4); Platelet Count 175 10x3/uL (150-450); RBC Distribution Width 12.3 % (11.5-14.5); Red Blood Cell (RBC) Count 4.44 10x6/uL (3.90-5.03); White Blood Cell (WBC) Count 4.9 10x3/uL (3.5-10.5)
[2020-11-19 12:50] LABS: RBC/HPF 0-3 HPF (0-3)
[2020-11-19 12:51] LABS: Bacteria/HPF Rare-Few HPF (None Seen); Calcium Oxalate Crystals Rare HPF (None Seen); Mucous/LPF 1+ LPF (<2+); WBC/HPF None Seen HPF (0-3)
[2020-11-19 13:05] LABS: INR-International Normal Ratio 1.1; Prothrombin Time 12.4 sec (9.5-12.1)
[2020-11-19 13:10] LABS: Anion Gap 12 mmol/L (10-20); BUN (Urea Nitrogen) 11 mg/dL (9.8-20.1); Calc. Creatinine Clearance 0 mL/min (70-130); Calcium 9.3 mg/dL (7.8-10.44); Carbon Dioxide 25 mmol/L (23-31); Chloride 108 mmol/L (98-107); Glucose 85 mg/dL (83-110); Potassium 3.9 mmol/L (3.5-5.1); Sodium 141 mmol/L (136-145)
[2020-11-20 11:48] LABS: SARS-CoV-2 PCR by NAA Not Detected (NotDetected)
== END 2020-11-19 10:07 | disposition home or self-care (01) ==
LOC: LABBT 10:06
PROVIDERS: ATTEND Orthopaedic Surgery
DX: Z01.818 Encounter for other preprocedural examination (principal); M17.11 Unilateral primary osteoarthritis, right knee; Z20.822 Contact with and (suspected) exposure to COVID-19
CPT/HCPCS: 80048; 81001; 85025; 85610; 87081; 93005; U0003; U0005; 93010

== ENCOUNTER 2020-11-24 05:35 | Inpatient (IN) | payer MEDICARE, BC ==
[2020-11-24] MEDS ORDERED: Tranexamic Acid 1,000 MG/10 ML VIAL ONE ×2 (06:18→09:08)
[2020-11-24] MEDS ORDERED: Sodium Chloride 0.9% 100 ML ONE (06:18)
[2020-11-24] MEDS ORDERED: Clindamycin/D5W 600 mg/50 ml Premix Bag ONE (06:18)
[2020-11-24] MEDS ORDERED: Midazolam HCl 2 mg/2 ml Vial ONE (06:26)
[2020-11-24] MEDS ORDERED: Fentanyl 100 MCG/2 ML VIAL ONE ×5 (06:26→10:16)
[2020-11-24] MEDS ORDERED: Lidocaine 1% (PF) 30 ML VIAL ONE (06:27)
[2020-11-24] MEDS ORDERED: Bupivacaine PF 0.5% 30 ML VIAL ONE (06:27)
[2020-11-24] MEDS ORDERED: VANCOMYCIN 1.25 GM/250 ML BAG 1.25 GM in Premix Bag 1 BAG IVPB SCH (06:45)
[2020-11-24] MEDS ORDERED: Famotidine/PF 20 mg/2ml Vial ONE (06:49)
[2020-11-24] MEDS ORDERED: Bicitra 30 ML UDCUP ONE (06:49)
[2020-11-24] MEDS ORDERED: Vancomycin 1.5 GRAM/300 ML BAG 1.5 GM in Premix Bag 1 BAG IVPB SCH (07:00)
[2020-11-24] MEDS ORDERED: Promethazine HCl 25 MG/ML VIAL IM PRN ×2 (07:32→09:14)
[2020-11-24] MEDS ORDERED: diphenhydrAMINE 25 MG CAP PO PRN (07:32)
[2020-11-24] MEDS ORDERED: HYDROcodone/Acetaminophen 10/325 mg Tablet PO PRN ×3 (07:32→08:30)
[2020-11-24] MEDS ORDERED: Zolpidem Tartrate 5 MG TAB PO PRN ×2 (07:32→08:30)
[2020-11-24] MEDS ORDERED: traMADol HCl 50 MG TAB PO PRN ×3 (07:32→08:30)
[2020-11-24] MEDS ORDERED: Fentanyl 100 MCG/2 ML VIAL SLOW IVP PRN (07:32)
[2020-11-24] MEDS ORDERED: Acetaminophen 325 MG TAB PO PRN (07:32)
[2020-11-24] MEDS ORDERED: Ondansetron PF 4 MG/2 ML Vial IVP PRN (07:32)
[2020-11-24] MEDS ORDERED: Lidocaine 1% PF 5 ML VIAL ONE (07:35)
[2020-11-24] MEDS ORDERED: Ondansetron PF 4 MG/2 ML Vial ONE (07:35)
[2020-11-24] MEDS ORDERED: Metoclopramide HCl 10 MG/2 ML VIAL ONE (07:35)
[2020-11-24] MEDS ORDERED: PROPOFOL 200 MG/20 ML VIAL ONE (07:35)
[2020-11-24] MEDS ORDERED: Ropivacaine 2% HCl/PF (20 MG/10 ML VIAL) ONE (07:35)
[2020-11-24] MEDS ORDERED: Dexamethasone 20 MG/5 ML VIAL ONE (07:35)
[2020-11-24] MEDS ORDERED: Bupivacaine HCl 0.5%/Epinephrine 1:200,000/PF 30 ml Vial ONE (07:35)
[2020-11-24] MEDS ORDERED: Vancomycin HCl 1.5 GM in Sodium Chloride 0.9% 250 ML 300 ML IVPB SCH (07:45)
[2020-11-24] MEDS ORDERED: Tranexamic Acid 1,000 MG in Sodium Chloride 0.9% 100 ML IVPB SCH (07:45)
[2020-11-24] MEDS ORDERED: Ropivacaine HCl/PF 250 ML in Premix Bag 1 BAG NERVE BLCK SCH (08:30)
[2020-11-24] MEDS ORDERED: Levothyroxine Sodium 125 MCG TAB PO SCH (09:00)
[2020-11-24] MEDS ORDERED: Ondansetron HCl/PF 4 MG/2 ML Vial IVP PRN (09:14)
[2020-11-24] MEDS ORDERED: Promethazine HCl 25 MG/ML VIAL SLOW IVP PRN (09:14)
[2020-11-24] MEDS ORDERED: Ketorolac Tromethamine 30 MG/ML VIAL ONE (10:01)
[2020-11-24] MEDS: Sodium Chloride 0.9% 1,000 ML IV SCH ×2 (10:45→15:38)
[2020-11-24] MEDS: Aspirin Chewable 81 MG TAB PO SCH (11:51)
[2020-11-24] MEDS: Aspirin 81 mg Enteric Coated Tablet PO SCH ×2 (11:51→20:21)
[2020-11-24] MEDS: Rosuvastatin 10 MG TAB PO SCH ×3 (11:52→17:47)
[2020-11-24] MEDS: Lisinopril 20 MG TAB PO SCH (11:52)
[2020-11-24] MEDS: Ferrous Gluconate 324 MG TAB PO SCH ×2 (11:52→20:21)
[2020-11-24] MEDS: DULoxetine 60 MG CAP PO SCH (11:52)
[2020-11-24] MEDS: Escitalopram Oxalate 20 mg Tablet PO SCH (11:52)
[2020-11-24] MEDS: Dronedarone HCl 400 MG TAB PO SCH ×2 (11:52→20:19)
[2020-11-24] MEDS: Multivitamin W/ Minerals 1 TAB PO SCH (11:52)
[2020-11-24] MEDS: Senokot S 8.6-50 MG TAB PO SCH ×2 (11:53→20:19)
[2020-11-24] MEDS ORDERED: Clindamycin/D5W 900 MG in Premix Bag 1 BAG IVPB SCH (12:00)
[2020-11-24] MEDS ORDERED: Ketorolac Tromethamine 30 MG/ML VIAL IVP SCH (14:00)
[2020-11-24] MEDS: HYDROcodone/Acetaminophen 10/325 mg Tablet PO PRN ×3 (14:38→23:45)
[2020-11-24] MEDS: Clindamycin/D5W 900 MG in Premix Bag 1 BAG IVPB SCH ×2 (14:39→20:21)
[2020-11-24 16:25] VITALS: BMI 32.5
[2020-11-24] MEDS: Vancomycin 1.5 GRAM/300 ML BAG 1.5 GM in Premix Bag 1 BAG IVPB SCH (18:38)
[2020-11-24] MEDS: Rosuvastatin 20 MG TAB PO SCH (20:20)
[2020-11-25 05:30] LABS: Hemoglobin 11.1 g/dL (12.0-16.0); Mean Corpuscular HGB CONC 33.3 g/dL (32.0-36.0); Mean Corpuscular Hemoglobin 32.2 pg (27.0-31.0); Mean Corpuscular Volume 96.7 fL (78.0-98.0); Mean Platelet Volume 8.3 fL (7.4-10.4); Platelet Count 135 thou/uL (130-400); RBC Distribution Width 11.5 % (11.5-14.5); Red Blood Cell (RBC) Count 3.46 mill/uL (4.20-5.40); White Blood Cell (WBC) Count 10.2 thou/uL (4.8-10.8)
[2020-11-25] MEDS: HYDROcodone/Acetaminophen 10/325 mg Tablet PO PRN ×3 (05:44→18:17)
[2020-11-25] MEDS: Levothyroxine Sodium 100 MCG TAB PO SCH (05:45)
[2020-11-25] MEDS: Vancomycin 1.5 GRAM/300 ML BAG 1.5 GM in Premix Bag 1 BAG IVPB SCH ×2 (05:45→18:17)
[2020-11-25] MEDS: Sodium Chloride 0.9% 1,000 ML IV SCH ×2 (06:46→15:36)
[2020-11-25] MEDS: Aspirin Chewable 81 MG TAB PO SCH (09:02)
[2020-11-25] MEDS: Senokot S 8.6-50 MG TAB PO SCH ×2 (09:04→22:05)
[2020-11-25] MEDS: Multivitamin W/ Minerals 1 TAB PO SCH (09:04)
[2020-11-25] MEDS: Aspirin 81 mg Enteric Coated Tablet PO SCH ×2 (09:05→22:04)
[2020-11-25] MEDS: Dronedarone HCl 400 MG TAB PO SCH ×2 (09:05→22:03)
[2020-11-25] MEDS: Lisinopril 20 MG TAB PO SCH (09:05)
[2020-11-25] MEDS: Ferrous Gluconate 324 MG TAB PO SCH ×2 (09:05→22:05)
[2020-11-25] MEDS: DULoxetine 60 MG CAP PO SCH (09:05)
[2020-11-25] MEDS: Escitalopram Oxalate 20 mg Tablet PO SCH (09:05)
[2020-11-25] MEDS: Ondansetron PF 4 MG/2 ML Vial IVP PRN ×2 (09:13→22:36)
[2020-11-25] MEDS: Calcium Carbonate 500 MG ChewTAB PO PRN ×2 (09:54→18:17)
[2020-11-25] MEDS: Ketorolac Tromethamine 30 MG/ML VIAL IVP PRN (10:25)
[2020-11-25] MEDS: Promethazine HCl 25 MG/ML VIAL IM PRN ×2 (11:44→19:37)
[2020-11-25] MEDS: Rosuvastatin 20 MG TAB PO SCH (22:05)
[2020-11-26] MEDS: Fentanyl 100 MCG/2 ML VIAL IV PRN ×2 (02:35→10:06)
[2020-11-26 06:11] LABS: Hemoglobin 10.5 g/dL (12.0-16.0); Mean Corpuscular HGB CONC 32.4 g/dL (32.0-36.0); Mean Corpuscular Hemoglobin 31.2 pg (27.0-31.0); Mean Platelet Volume 8.3 fL (7.4-10.4); Platelet Count 109 thou/uL (130-400); RBC Distribution Width 11.8 % (11.5-14.5); Red Blood Cell (RBC) Count 3.38 mill/uL (4.20-5.40); White Blood Cell (WBC) Count 7.4 thou/uL (4.8-10.8)
[2020-11-26] MEDS: Levothyroxine Sodium 100 MCG TAB PO SCH (06:19)
[2020-11-26] MEDS: Vancomycin 1.5 GRAM/300 ML BAG 1.5 GM in Premix Bag 1 BAG IVPB SCH (06:44)
[2020-11-26] MEDS: Sodium Chloride 0.9% 1,000 ML IV SCH ×3 (06:44→20:19)
[2020-11-26] MEDS ORDERED: Apixaban 5 MG TAB PO SCH (09:00)
[2020-11-26] MEDS: Escitalopram Oxalate 20 mg Tablet PO SCH (10:05)
[2020-11-26] MEDS: DULoxetine 60 MG CAP PO SCH (10:05)
[2020-11-26] MEDS: Lisinopril 20 MG TAB PO SCH (10:05)
[2020-11-26] MEDS: Ferrous Gluconate 324 MG TAB PO SCH ×2 (10:05→20:15)
[2020-11-26] MEDS: Dronedarone HCl 400 MG TAB PO SCH ×2 (10:05→20:15)
[2020-11-26] MEDS: Senokot S 8.6-50 MG TAB PO SCH ×2 (10:06→20:15)
[2020-11-26] MEDS: Multivitamin W/ Minerals 1 TAB PO SCH (10:06)
[2020-11-26] MEDS: Aspirin 81 mg Enteric Coated Tablet PO SCH ×2 (10:07→20:15)
[2020-11-26] MEDS: HYDROcodone/Acetaminophen 10/325 mg Tablet PO PRN ×3 (11:22→22:04)
[2020-11-26] MEDS ORDERED: Ropivacaine HCl/PF 250 ML in Premix Bag 1 BAG NERVE BLCK SCH (11:45)
[2020-11-26] MEDS: Rosuvastatin 20 MG TAB PO SCH (20:15)
[2020-11-27] MEDS: Calcium Carbonate 500 MG ChewTAB PO PRN ×2 (01:08→10:56)
[2020-11-27] MEDS: Ketorolac Tromethamine 30 MG/ML VIAL IVP PRN (01:09)
[2020-11-27] MEDS: Levothyroxine Sodium 100 MCG TAB PO SCH (05:05)
[2020-11-27] MEDS: Sodium Chloride 0.9% 1,000 ML IV SCH (05:07)
[2020-11-27 06:27] LABS: Mean Corpuscular HGB CONC 33.4 g/dL (32.0-36.0); Mean Corpuscular Hemoglobin 32.6 pg (27.0-31.0); Mean Corpuscular Volume 97.5 fL (78.0-98.0); Mean Platelet Volume 7.8 fL (7.4-10.4); Platelet Count 111 thou/uL (130-400); RBC Distribution Width 11.8 % (11.5-14.5); Red Blood Cell (RBC) Count 3.07 mill/uL (4.20-5.40); White Blood Cell (WBC) Count 5.2 thou/uL (4.8-10.8)
[2020-11-27] MEDS ORDERED: Bisacodyl 10 MG SUPP PR PRN (07:37)
[2020-11-27] MEDS: Senokot S 8.6-50 MG TAB PO SCH (08:16)
[2020-11-27] MEDS: DULoxetine 60 MG CAP PO SCH (08:16)
[2020-11-27] MEDS: Multivitamin W/ Minerals 1 TAB PO SCH (08:17)
[2020-11-27] MEDS: Escitalopram Oxalate 20 mg Tablet PO SCH (08:17)
[2020-11-27] MEDS: Dronedarone HCl 400 MG TAB PO SCH (08:17)
[2020-11-27] MEDS: HYDROcodone/Acetaminophen 10/325 mg Tablet PO PRN ×2 (08:17→13:43)
[2020-11-27] MEDS: Ferrous Gluconate 324 MG TAB PO SCH (08:17)
[2020-11-27] MEDS: Lisinopril 20 MG TAB PO SCH (08:17)
[2020-11-27] MEDS ORDERED: Apixaban 5 MG TAB PO SCH (09:00)
[2020-11-27] MEDS ORDERED: CeleCOXIB 100 MG CAP PO SCH (09:00)
[2020-11-27] MEDS: Ondansetron PF 4 MG/2 ML Vial IVP PRN (10:50)
[2020-11-27 12:00] VITALS: BP 121/65; TEMP 97.7
== END 2020-11-27 14:42 | disposition swing bed (61) | DRG 470 ==
LOC: SDC 05:35 → SJJU 07:32 → SDC 11-26 07:11 → SJJU 11-26 07:11
PROVIDERS: ADMIT Orthopaedic Surgery; ATTEND Orthopaedic Surgery
PROC: 0SRC0J9 Replacement of Right Knee Joint with Synthetic Substitute, Cemented, Open Approach (ICD-10-PCS; principal; 2020-11-24)
PROC: 8E0YXBZ Computer Assisted Procedure of Lower Extremity (ICD-10-PCS; 2020-11-24)
DX: M17.11 Unilateral primary osteoarthritis, right knee (principal); I10 Essential (primary) hypertension; E78.5 Hyperlipidemia, unspecified; I25.10 Atherosclerotic heart disease of native coronary artery without angina pectoris; E11.9 Type 2 diabetes mellitus without complications; K21.9 Gastro-esophageal reflux disease without esophagitis; E89.0 Postprocedural hypothyroidism; Z20.822 Contact with and (suspected) exposure to COVID-19; D64.9 Anemia, unspecified; J30.2 Other seasonal allergic rhinitis; E78.00 Pure hypercholesterolemia, unspecified; M18.11 Unilateral primary osteoarthritis of first carpometacarpal joint, right hand; Z96.652 Presence of left artificial knee joint; K59.00 Constipation, unspecified; R11.0 Nausea; Z79.01 Long term (current) use of anticoagulants; Z79.82 Long term (current) use of aspirin; Z79.899 Other long term (current) drug therapy; Z88.0 Allergy status to penicillin; Z88.1 Allergy status to other antibiotic agents; Z88.5 Allergy status to narcotic agent; Z88.7 Allergy status to serum and vaccine; Z95.1 Presence of aortocoronary bypass graft; Z90.49 Acquired absence of other specified parts of digestive tract
CPT/HCPCS: 36415; 85027; 85610; C1713; C1776; J1100; J1885; J2001; J2250; J2405; J2550; J2704; J2765; J2795; J3010; J3370; J3490; Q0163; S0020; S0028

== ENCOUNTER 2020-12-18 15:06 | Observation (INO) | payer MEDICARE, BC ==
[2020-12-18] MEDS ORDERED: Ondansetron ODT 4 MG TAB PO PRN (17:20)
[2020-12-18] MEDS ORDERED: Ondansetron PF 4 MG/2 ML Vial IVP PRN (17:20)
[2020-12-18] MEDS ORDERED: hydrALAZINE 20 MG/ML VIAL SLOW IVP PRN (17:20)
[2020-12-18] MEDS ORDERED: Acetaminophen 500 MG TAB PO PRN (17:20)
[2020-12-18] MEDS ORDERED: HYDROcodone/Acetaminophen 5/325 mg Tablet PO PRN ×2 (18:57→18:58)
[2020-12-18 19:48] VITALS: BMI 34.4
[2020-12-18] MEDS: Famotidine 20 MG TAB PO SCH (20:42)
[2020-12-18] MEDS: Apixaban 5 MG TAB PO SCH (20:43)
[2020-12-18] MEDS: Rosuvastatin 10 MG TAB PO SCH (20:43)
[2020-12-18] MEDS: Dronedarone HCl 400 MG TAB PO SCH (20:43)
[2020-12-18] MEDS ORDERED: HYDROcodone/Acetaminophen 10/325 mg Tablet PO PRN (22:26)
[2020-12-18] MEDS: HYDROcodone/Acetaminophen 10/325 mg Tablet PO PRN (23:46)
[2020-12-19 04:57] LABS: #Basophils 0.1 thou/uL (0.0-0.2); #Eosinphils 0.1 thou/uL (0.0-0.7); #Lymphocytes 2.1 thou/uL (1.20-3.40); #Monocytes 0.6 thou/uL (0.11-0.59); #Neutrophils 2.1 thou/uL (1.40-6.50); %Basophils 1.1 % (0.0-1.0); %Eosinophils 2.1 % (0.0-10.0); %Lymphocytes 42.4 % (21.0-51.0); %Monocytes 12.2 % (0.0-10.0); %Neutrophils 42.2 % (42.0-75.0); Hemoglobin 11.5 g/dL (12.0-16.0); Mean Corpuscular HGB CONC 34.3 g/dL (32.0-36.0); Mean Corpuscular Hemoglobin 33.7 pg (27.0-31.0); Mean Corpuscular Volume 98.3 fL (78.0-98.0); Mean Platelet Volume 7.7 fL (7.4-10.4); Platelet Count 233 thou/uL (130-400); Red Blood Cell (RBC) Count 3.42 mill/uL (4.20-5.40); White Blood Cell (WBC) Count 4.9 thou/uL (4.8-10.8)
[2020-12-19 05:13] LABS: Anion Gap 14 mmol/L (10-20); BUN (Urea Nitrogen) 26 mg/dL (9.8-20.1); Calc. Creatinine Clearance 86 mL/min (70-130); Calcium 8.6 mg/dL (7.8-10.44); Carbon Dioxide 23 mmol/L (23-31); Chloride 109 mmol/L (98-107); Glucose 81 mg/dL (83-110); Magnesium 2.1 mg/dL (1.6-2.6); Potassium 4.6 mmol/L (3.5-5.1); Sodium 141 mmol/L (136-145)
[2020-12-19 08:30] LABS: Free T4 (Free Thyroxine) 0.94 ng/dL (0.70-1.48)
[2020-12-19] MEDS: Apixaban 5 MG TAB PO SCH ×2 (08:42→20:19)
[2020-12-19] MEDS: DULoxetine 60 MG CAP PO SCH (08:42)
[2020-12-19] MEDS: Aspirin Chewable 81 MG TAB PO SCH (08:42)
[2020-12-19] MEDS: Dronedarone HCl 400 MG TAB PO SCH ×2 (08:42→20:20)
[2020-12-19] MEDS: Famotidine 20 MG TAB PO SCH ×2 (08:42→20:20)
[2020-12-19] MEDS: Lisinopril 20 MG TAB PO SCH (08:42)
[2020-12-19] MEDS: HYDROcodone/Acetaminophen 10/325 mg Tablet PO PRN ×3 (08:43→20:20)
[2020-12-19] MEDS: Escitalopram Oxalate 20 mg Tablet PO SCH (08:45)
[2020-12-19] MEDS: Rosuvastatin 10 MG TAB PO SCH (20:20)
[2020-12-20] MEDS: HYDROcodone/Acetaminophen 10/325 mg Tablet PO PRN ×2 (08:30→14:17)
[2020-12-20] MEDS: Apixaban 5 MG TAB PO SCH (08:32)
[2020-12-20] MEDS: Aspirin Chewable 81 MG TAB PO SCH (08:32)
[2020-12-20] MEDS: Lisinopril 20 MG TAB PO SCH (08:32)
[2020-12-20] MEDS: DULoxetine 60 MG CAP PO SCH (08:33)
[2020-12-20] MEDS: Dronedarone HCl 400 MG TAB PO SCH (08:33)
[2020-12-20] MEDS: Famotidine 20 MG TAB PO SCH (08:33)
[2020-12-20] MEDS: Escitalopram Oxalate 20 mg Tablet PO SCH (08:33)
[2020-12-20 11:38] VITALS: BP 117/58; TEMP 98.4
[2020-12-20 16:18] LABS: Troponin I 0.017 ng/mL (< 0.028)
== END 2020-12-20 17:30 | disposition home or self-care (01) ==
LOC: 2SW 16:30
PROVIDERS: ADMIT Family Medicine; ATTEND Internal Medicine
DX: R00.1 Bradycardia, unspecified (principal); I48.0 Paroxysmal atrial fibrillation; E89.0 Postprocedural hypothyroidism; I11.0 Hypertensive heart disease with heart failure; I50.32 Chronic diastolic (congestive) heart failure; I25.10 Atherosclerotic heart disease of native coronary artery without angina pectoris; I49.5 Sick sinus syndrome; K21.9 Gastro-esophageal reflux disease without esophagitis; E78.5 Hyperlipidemia, unspecified; E87.6 Hypokalemia; J90 Pleural effusion, not elsewhere classified; M17.12 Unilateral primary osteoarthritis, left knee; D53.9 Nutritional anemia, unspecified; I95.9 Hypotension, unspecified; Z79.01 Long term (current) use of anticoagulants; Z79.82 Long term (current) use of aspirin; Z79.899 Other long term (current) drug therapy; Z88.0 Allergy status to penicillin; Z88.1 Allergy status to other antibiotic agents; Z88.5 Allergy status to narcotic agent; Z88.7 Allergy status to serum and vaccine; Z95.0 Presence of cardiac pacemaker; Z95.1 Presence of aortocoronary bypass graft; Z95.2 Presence of prosthetic heart valve; Z95.5 Presence of coronary angioplasty implant and graft; Z96.653 Presence of artificial knee joint, bilateral; Z98.84 Bariatric surgery status
CPT/HCPCS: 36415; 80048; 83735; 84439; 84443; 84481; 84484; 85025; G0378; Q0162

== ENCOUNTER 2021-04-23 10:38 | Outpatient (CLI) | payer MEDICARE, BC ==
[2021-04-23 12:18] LABS: Anion Gap 13 mmol/L (10-20); BUN (Urea Nitrogen) 17 mg/dL (9.8-20.1); Calc. Creatinine Clearance 0 mL/min (70-130); Carbon Dioxide 25 mmol/L (23-31); Chloride 108 mmol/L (98-107); Glucose 81 mg/dL (83-110); Potassium 4.1 mmol/L (3.5-5.1); Sodium 142 mmol/L (136-145)
[2021-04-23 12:22] LABS: #Basophils 0.1 10x3/uL (0.0-0.2); #Eosinphils 0.1 10x3/uL (0.0-0.5); #Monocytes 0.5 10x3/uL (0.0-1.1); #Neutrophils 3.7 10x3/uL (1.5-8.4); %Basophils 1.1 % (0.0-2.0); %Eosinophils 2.5 % (0.0-6.0); %Lymphocytes 23.1 % (18.0-47.0); %Monocytes 8.1 % (0.0-10.0); Hemoglobin 12.6 g/dL (12.0-15.5); Mean Corpuscular HGB CONC 31.4 g/dL (32.0-36.0); Mean Corpuscular Hemoglobin 29.6 pg (27.0-33.0); Mean Corpuscular Volume 94.1 fl (81.6-98.3); Mean Platelet Volume 10.3 fl (7.4-10.4); Platelet Count 179 10x3/uL (150-450); RBC Distribution Width 13.1 % (11.5-14.5); Red Blood Cell (RBC) Count 4.26 10x6/uL (3.90-5.03); White Blood Cell (WBC) Count 5.7 10x3/uL (3.5-10.5)
[2021-04-23 13:05] LABS: Bilirubin Neg (Negative); Blood, Urine 10 (Negative); Clarity Clear (Clear); Glucose, Urine (Dipstick) Normal (Negative); Ketone, Urine Negative (Negative); Leukocyte Negative (Negative); Nitrite Negative (Negative); Protein, Urine (Dipstick) 15 mg/dl (Neg-Trace); Specific Gravity, Urine 1.025 (1.002-1.036)
[2021-04-23 13:18] LABS: Bacteria/HPF Rare-Few HPF (None Seen); Mucous/LPF Rare LPF (<2+); RBC/HPF 0-3 HPF (0-3); Squamous Epithelial 0-3 HPF (0-3); WBC/HPF 0-3 HPF (0-3)
[2021-04-24 00:05] LABS: SARS-CoV-2 PCR by NAA Not Detected (NotDetected)
== END 2021-04-23 10:39 | disposition home or self-care (01) ==
LOC: LABBT 10:38
PROVIDERS: ATTEND Orthopaedic Surgery Hand Surgery
DX: Z01.818 Encounter for other preprocedural examination (principal); M65.341 Trigger finger, right ring finger; Z20.822 Contact with and (suspected) exposure to COVID-19
CPT/HCPCS: 80048; 85025; 93005; U0003; U0005; 81003; 81015; 93010

== ENCOUNTER 2021-04-27 13:16 | Day surgery (SDC) | payer MEDICARE, BC ==
[2021-04-24 10:37] VITALS: BMI 31.4
[2021-04-27] MEDS ORDERED: Clindamycin/D5W 900 mg/50 ml Premix Bag ONE (13:44)
[2021-04-27] MEDS ORDERED: Scopolamine 1.5 mg/72 hour Patch ONE (13:48)
[2021-04-27] MEDS ORDERED: Fentanyl 100 MCG/2 ML VIAL ONE ×2 (14:16→15:02)
[2021-04-27] MEDS ORDERED: Bupivacaine PF 0.5% 30 ML VIAL ONE (14:21)
[2021-04-27] MEDS ORDERED: Bacitracin Zinc Ointment 30 gm TUBE ONE (14:21)
[2021-04-27] MEDS ORDERED: Betamet Acet/Betamet Na Ph 30 MG/5 ML VIAL ONE (14:21)
[2021-04-27] MEDS ORDERED: PROPOFOL 200 MG/20 ML VIAL ONE (14:34)
[2021-04-27] MEDS ORDERED: Ondansetron PF 4 MG/2 ML Vial ONE (14:34)
[2021-04-27] MEDS ORDERED: Dexamethasone 20 MG/5 ML VIAL ONE (14:34)
[2021-04-27] MEDS ORDERED: Lidocaine 1% (PF) 30 ML VIAL ONE (14:38)
[2021-04-27] MEDS ORDERED: Midazolam HCl 2 mg/2 ml Vial ONE (14:42)
[2021-04-27] MEDS ORDERED: Ketorolac Tromethamine 30 MG/ML VIAL ONE (16:25)
[2021-04-27] MEDS ORDERED: HYDROcodone/Acetaminophen 5/325 mg Tablet ONE (17:44)
== END 2021-04-27 18:05 | disposition home or self-care (01) ==
LOC: SDC 13:16
PROVIDERS: ATTEND Orthopaedic Surgery Hand Surgery
PROC: 0JNJ0ZZ Release Right Hand Subcutaneous Tissue and Fascia, Open Approach (ICD-10-PCS; principal; 2021-04-27)
PROC: 0LN70ZZ Release Right Hand Tendon, Open Approach (ICD-10-PCS; 2021-04-27)
PROC: 0LN70ZZ Release Right Hand Tendon, Open Approach (ICD-10-PCS; 2021-04-27)
DX: M72.0 Palmar fascial fibromatosis [Dupuytren] (principal); M65.341 Trigger finger, right ring finger; M65.351 Trigger finger, right little finger; I10 Essential (primary) hypertension; I25.10 Atherosclerotic heart disease of native coronary artery without angina pectoris; E78.5 Hyperlipidemia, unspecified; E11.9 Type 2 diabetes mellitus without complications; E89.0 Postprocedural hypothyroidism; K21.9 Gastro-esophageal reflux disease without esophagitis; M85.80 Other specified disorders of bone density and structure, unspecified site; M19.011 Primary osteoarthritis, right shoulder; E78.00 Pure hypercholesterolemia, unspecified; Z79.01 Long term (current) use of anticoagulants; Z79.82 Long term (current) use of aspirin; Z79.899 Other long term (current) drug therapy; Z88.0 Allergy status to penicillin; Z88.1 Allergy status to other antibiotic agents; Z88.5 Allergy status to narcotic agent; Z88.7 Allergy status to serum and vaccine; Z95.0 Presence of cardiac pacemaker; Z95.1 Presence of aortocoronary bypass graft; Z95.2 Presence of prosthetic heart valve; Z90.49 Acquired absence of other specified parts of digestive tract; Z96.653 Presence of artificial knee joint, bilateral; Z98.890 Other specified postprocedural states
CPT/HCPCS: 36416; 88304; J0690; J0702; J1100; J1885; J2001; J2250; J2405; J2704; J3010; J3490; S0020

== ENCOUNTER 2021-09-26 21:22 | Inpatient (IN) | payer MEDICARE, BC ==
[2021-09-27 02:53] VITALS: BMI 33.5
[2021-09-27 05:22] LABS: #Basophils 0.1 thou/uL (0.0-0.2); #Eosinphils 0.1 thou/uL (0.0-0.7); #Lymphocytes 2.1 thou/uL (1.20-3.40); #Monocytes 1.4 thou/uL (0.11-0.59); #Neutrophils 12.1 thou/uL (1.40-6.50); %Basophils 0.4 % (0.0-1.0); %Eosinophils 0.3 % (0.0-10.0); %Lymphocytes 13.6 % (21.0-51.0); %Monocytes 8.8 % (0.0-10.0); %Neutrophils 76.9 % (42.0-75.0); Hemoglobin 13.2 g/dL (12.0-16.0); Mean Corpuscular HGB CONC 30.8 g/dL (32.0-36.0); Mean Corpuscular Hemoglobin 30.8 pg (27.0-31.0); Platelet Count 178 thou/uL (130-400); RBC Distribution Width 12.2 % (11.5-14.5); Red Blood Cell (RBC) Count 4.27 mill/uL (4.20-5.40); White Blood Cell (WBC) Count 15.7 thou/uL (4.8-10.8)
[2021-09-27 05:48] LABS: Troponin I Less than 0.010 ng/mL (< 0.028)
[2021-09-27 05:49] LABS: ALT (SGPT) 50 U/L (8-55); AST (SGOT) 48 U/L (5-34); Albumin 3.3 g/dL (3.4-4.8); Alkaline Phosphatase 95 U/L (40-110); Anion Gap 12 mmol/L (10-20); BUN (Urea Nitrogen) 15 mg/dL (9.8-20.1); Bilirubin, Total 0.5 mg/dL (0.2-1.2); Calc. Creatinine Clearance 88 mL/min (70-130); Calcium 8.6 mg/dL (7.8-10.44); Carbon Dioxide 24 mmol/L (23-31); Chloride 108 mmol/L (98-107); Globulin 2.9 g/dL (2.4-3.5); Glucose 99 mg/dL (83-110); Potassium 4.3 mmol/L (3.5-5.1); Protein, Total 6.2 g/dL (5.8-8.1); Sodium 140 mmol/L (136-145)
[2021-09-27] MEDS ORDERED: Ondansetron ODT 4 MG TAB PO PRN (08:57)
[2021-09-27] MEDS ORDERED: hydrALAZINE 20 MG/ML VIAL SLOW IVP PRN (08:57)
[2021-09-27] MEDS ORDERED: FAMOTIDINE PO PRN (10:44)
[2021-09-27] MEDS ORDERED: CA CARB PO PRN (10:44)
[2021-09-27] MEDS ORDERED: MAG HYDROX PO PRN (10:44)
[2021-09-27] MEDS ORDERED: guaiFENesin ER 600 MG TAB PO SCH (10:45)
[2021-09-27] MEDS ORDERED: Levothyroxine Sodium 100 MCG TAB PO SCH (10:45)
[2021-09-27] MEDS ORDERED: predniSONE 20 MG TAB PO SCH (10:45)
[2021-09-27] MEDS: DULoxetine 60 MG CAP PO SCH (10:56)
[2021-09-27] MEDS: Lisinopril 20 MG TAB PO SCH (10:57)
[2021-09-27] MEDS: Apixaban 5 MG TAB PO SCH ×2 (10:57→20:16)
[2021-09-27] MEDS: Famotidine 20 MG TAB PO SCH ×2 (10:58→20:17)
[2021-09-27] MEDS: busPIRone HCl 5 MG TAB PO SCH ×2 (10:59→20:16)
[2021-09-27] MEDS ORDERED: Doxycycline 100 MG in Sodium Chloride 0.9% 100 ML IVPB SCH (11:00)
[2021-09-27] MEDS: Doxycycline 100 MG in Sodium Chloride 0.9% 100 ML IVPB SCH ×2 (12:06→20:16)
[2021-09-27] MEDS: Ondansetron PF 4 MG/2 ML Vial IVP PRN (12:06)
[2021-09-27] MEDS ORDERED: Dronedarone HCl 400 MG TAB PO SCH (12:15)
[2021-09-27] MEDS: Ferrous Sulfate 325 MG TAB PO SCH (15:27)
[2021-09-27] MEDS: Acetaminophen 500 MG TAB PO PRN (15:28)
[2021-09-27] MEDS: Dronedarone HCl 400 MG TAB PO SCH (18:37)
[2021-09-27] MEDS: Ascorbic Acid 500 mg Chewable Tablet PO SCH (20:16)
[2021-09-27] MEDS: Aspirin Chewable 81 MG TAB PO SCH (20:16)
[2021-09-27] MEDS: guaiFENesin ER 600 MG TAB PO SCH (20:17)
[2021-09-27] MEDS: pyridOXINE 50 MG (B6) TAB PO SCH (20:17)
[2021-09-28 05:01] LABS: #Lymphocytes 1.9 thou/uL (1.20-3.40); #Monocytes 0.8 thou/uL (0.11-0.59); %Eosinophils 0.1 % (0.0-10.0); %Monocytes 6.2 % (0.0-10.0); %Neutrophils 78.7 % (42.0-75.0); Hemoglobin 12.9 g/dL (12.0-16.0); Mean Corpuscular HGB CONC 32.5 g/dL (32.0-36.0); Mean Corpuscular Hemoglobin 31.5 pg (27.0-31.0); Mean Corpuscular Volume 97.1 fL (78.0-98.0); Mean Platelet Volume 7.6 fL (7.4-10.4); Platelet Count 186 thou/uL (130-400); White Blood Cell (WBC) Count 12.7 thou/uL (4.8-10.8)
[2021-09-28] MEDS: Levothyroxine Sodium 100 MCG TAB PO SCH (05:21)
[2021-09-28 05:22] LABS: Anion Gap 12 mmol/L (10-20); BUN (Urea Nitrogen) 18 mg/dL (9.8-20.1); Calc. Creatinine Clearance 98 mL/min (70-130); Calcium 8.5 mg/dL (7.8-10.44); Carbon Dioxide 25 mmol/L (23-31); Chloride 106 mmol/L (98-107); Glucose 119 mg/dL (83-110); Potassium 3.9 mmol/L (3.5-5.1); Sodium 139 mmol/L (136-145)
[2021-09-28] MEDS: Famotidine 20 MG TAB PO SCH ×2 (08:04→20:01)
[2021-09-28] MEDS: predniSONE 20 MG TAB PO SCH (08:04)
[2021-09-28] MEDS: guaiFENesin ER 600 MG TAB PO SCH ×2 (08:04→19:58)
[2021-09-28] MEDS: Apixaban 5 MG TAB PO SCH ×2 (08:04→20:01)
[2021-09-28] MEDS: Dronedarone HCl 400 MG TAB PO SCH ×2 (08:04→16:24)
[2021-09-28] MEDS: DULoxetine 60 MG CAP PO SCH (08:04)
[2021-09-28] MEDS: busPIRone HCl 5 MG TAB PO SCH ×2 (08:05→20:00)
[2021-09-28] MEDS: Lisinopril 20 MG TAB PO SCH (08:18)
[2021-09-28] MEDS: Doxycycline 100 MG in Sodium Chloride 0.9% 100 ML IVPB SCH ×2 (09:05→20:03)
[2021-09-28] MEDS: Albuterol Sulfate 2.5 mg/3 ml Neb NEB PRN ×2 (09:29→18:22)
[2021-09-28 09:56] LABS: Free T4 (Free Thyroxine) 1.05 ng/dL (0.70-1.48)
[2021-09-28] MEDS: Ferrous Sulfate 325 MG TAB PO SCH (16:23)
[2021-09-28] MEDS: Acetaminophen 500 MG TAB PO PRN ×2 (16:24→23:59)
[2021-09-28] MEDS: Ascorbic Acid 500 mg Chewable Tablet PO SCH (19:58)
[2021-09-28] MEDS: pyridOXINE 50 MG (B6) TAB PO SCH (19:59)
[2021-09-28] MEDS: Aspirin Chewable 81 MG TAB PO SCH (20:01)
[2021-09-28] MEDS: Benzonatate 100 MG CAP PO PRN (23:59)
[2021-09-29] MEDS: Albuterol Sulfate 2.5 mg/3 ml Neb NEB PRN ×2 (01:18→16:59)
[2021-09-29 04:43] LABS: #Lymphocytes 2.2 thou/uL (1.20-3.40); #Monocytes 1.3 thou/uL (0.11-0.59); %Basophils 0.3 % (0.0-1.0); %Eosinophils 0.1 % (0.0-10.0); %Lymphocytes 17.8 % (21.0-51.0); %Monocytes 10.3 % (0.0-10.0); %Neutrophils 71.5 % (42.0-75.0); Hemoglobin 11.9 g/dL (12.0-16.0); Mean Corpuscular HGB CONC 32.6 g/dL (32.0-36.0); Mean Corpuscular Hemoglobin 31.6 pg (27.0-31.0); Mean Corpuscular Volume 97.1 fL (78.0-98.0); Mean Platelet Volume 7.5 fL (7.4-10.4); Platelet Count 177 thou/uL (130-400); Red Blood Cell (RBC) Count 3.77 mill/uL (4.20-5.40); White Blood Cell (WBC) Count 12.6 thou/uL (4.8-10.8)
[2021-09-29 05:01] LABS: Anion Gap 10 mmol/L (10-20); BUN (Urea Nitrogen) 20 mg/dL (9.8-20.1); Calc. Creatinine Clearance 80 mL/min (70-130); Calcium 8.4 mg/dL (7.8-10.44); Carbon Dioxide 25 mmol/L (23-31); Chloride 107 mmol/L (98-107); Glucose 128 mg/dL (83-110); Potassium 3.8 mmol/L (3.5-5.1); Sodium 138 mmol/L (136-145)
[2021-09-29] MEDS: Levothyroxine Sodium 100 MCG TAB PO SCH (05:58)
[2021-09-29] MEDS: Dronedarone HCl 400 MG TAB PO SCH ×2 (08:20→17:35)
[2021-09-29] MEDS: predniSONE 20 MG TAB PO SCH (08:20)
[2021-09-29] MEDS: Lisinopril 20 MG TAB PO SCH (08:21)
[2021-09-29] MEDS: guaiFENesin ER 600 MG TAB PO SCH ×2 (08:21→20:57)
[2021-09-29] MEDS: DULoxetine 60 MG CAP PO SCH (08:21)
[2021-09-29] MEDS: Famotidine 20 MG TAB PO SCH ×2 (08:21→20:57)
[2021-09-29] MEDS: busPIRone HCl 5 MG TAB PO SCH ×2 (08:21→20:56)
[2021-09-29] MEDS: Apixaban 5 MG TAB PO SCH ×2 (08:21→20:56)
[2021-09-29] MEDS: Acetaminophen 500 MG TAB PO PRN ×2 (09:01→20:55)
[2021-09-29] MEDS: Ondansetron PF 4 MG/2 ML Vial IVP PRN (09:02)
[2021-09-29] MEDS: Doxycycline 100 MG in Sodium Chloride 0.9% 100 ML IVPB SCH ×2 (10:50→20:59)
[2021-09-29] MEDS: Ferrous Sulfate 325 MG TAB PO SCH (17:35)
[2021-09-29] MEDS: pyridOXINE 50 MG (B6) TAB PO SCH (20:57)
[2021-09-29] MEDS: Ascorbic Acid 500 mg Chewable Tablet PO SCH (20:57)
[2021-09-29] MEDS: Aspirin Chewable 81 MG TAB PO SCH (20:57)
[2021-09-30] MEDS: Albuterol Sulfate 2.5 mg/3 ml Neb NEB PRN (02:12)
[2021-09-30] MEDS: Acetaminophen 500 MG TAB PO PRN ×3 (03:00→20:46)
[2021-09-30] MEDS: Benzonatate 100 MG CAP PO PRN (03:01)
[2021-09-30] MEDS: Levothyroxine Sodium 100 MCG TAB PO SCH (06:02)
[2021-09-30] MEDS: predniSONE 20 MG TAB PO SCH (09:21)
[2021-09-30] MEDS: Dronedarone HCl 400 MG TAB PO SCH ×2 (09:21→17:11)
[2021-09-30] MEDS: Apixaban 5 MG TAB PO SCH ×2 (09:22→20:44)
[2021-09-30] MEDS: busPIRone HCl 5 MG TAB PO SCH ×2 (09:22→20:45)
[2021-09-30] MEDS: Doxycycline 100 MG in Sodium Chloride 0.9% 100 ML IVPB SCH ×2 (09:22→20:48)
[2021-09-30] MEDS: guaiFENesin ER 600 MG TAB PO SCH ×2 (09:23→20:45)
[2021-09-30] MEDS: Famotidine 20 MG TAB PO SCH ×2 (09:23→20:45)
[2021-09-30] MEDS: Lisinopril 20 MG TAB PO SCH (09:23)
[2021-09-30] MEDS: DULoxetine 60 MG CAP PO SCH (09:23)
[2021-09-30] MEDS ORDERED: Scopolamine 1.5 mg/72 hour Patch TD SCH (12:45)
[2021-09-30] MEDS: Ferrous Sulfate 325 MG TAB PO SCH (17:11)
[2021-09-30] MEDS: Ascorbic Acid 500 mg Chewable Tablet PO SCH (20:44)
[2021-09-30] MEDS: Aspirin Chewable 81 MG TAB PO SCH (20:45)
[2021-09-30] MEDS: pyridOXINE 50 MG (B6) TAB PO SCH (20:46)
[2021-10-01 03:30] VITALS: TEMP 97.8
[2021-10-01] MEDS: Benzonatate 100 MG CAP PO PRN (03:46)
[2021-10-01] MEDS: Acetaminophen 500 MG TAB PO PRN ×2 (03:46→10:08)
[2021-10-01] MEDS: Levothyroxine Sodium 100 MCG TAB PO SCH (06:23)
[2021-10-01] MEDS: Apixaban 5 MG TAB PO SCH (09:59)
[2021-10-01] MEDS: Dronedarone HCl 400 MG TAB PO SCH (09:59)
[2021-10-01] MEDS: busPIRone HCl 5 MG TAB PO SCH (09:59)
[2021-10-01] MEDS: Famotidine 20 MG TAB PO SCH (10:00)
[2021-10-01] MEDS: predniSONE 20 MG TAB PO SCH (10:00)
[2021-10-01] MEDS: guaiFENesin ER 600 MG TAB PO SCH (10:00)
[2021-10-01] MEDS: Lisinopril 20 MG TAB PO SCH (10:01)
[2021-10-01] MEDS: DULoxetine 60 MG CAP PO SCH (10:04)
[2021-10-01 10:05] VITALS: BP 142/62
[2021-10-01] MEDS: Doxycycline 100 MG in Sodium Chloride 0.9% 100 ML IVPB SCH (10:24)
== END 2021-10-01 14:10 | disposition home or self-care (01) | DRG 203 ==
LOC: 2SW 21:22 → OBSVTOIN 09-28 13:43
PROVIDERS: ADMIT Student in an Organized Health Care Education/Training Program; ATTEND Internal Medicine
DX: J20.9 Acute bronchitis, unspecified (principal); Z20.822 Contact with and (suspected) exposure to COVID-19; E03.9 Hypothyroidism, unspecified; I25.10 Atherosclerotic heart disease of native coronary artery without angina pectoris; K21.9 Gastro-esophageal reflux disease without esophagitis; E78.5 Hyperlipidemia, unspecified; I48.0 Paroxysmal atrial fibrillation; I49.5 Sick sinus syndrome; F32.A Depression, unspecified; Z96.653 Presence of artificial knee joint, bilateral; Z95.2 Presence of prosthetic heart valve; Z79.01 Long term (current) use of anticoagulants; Z95.1 Presence of aortocoronary bypass graft; Z95.5 Presence of coronary angioplasty implant and graft; Z98.84 Bariatric surgery status; Z90.09 Acquired absence of other part of head and neck; Z79.890 Hormone replacement therapy; Z79.899 Other long term (current) drug therapy; Z88.1 Allergy status to other antibiotic agents; Z88.0 Allergy status to penicillin; Z88.7 Allergy status to serum and vaccine
CPT/HCPCS: 36415; 80048; 80053; 84439; 84443; 84481; 84484; 85025; 94640; 96365; 96366; 96376; G0378; J2405; J3490; J7512; J7611; J7620; Q0162

== ENCOUNTER 2024-05-11 10:17 | Outpatient (CLI) | payer MEDICARE, BC ==
[2024-05-11 12:14] LABS: #Basophils 0.07 10x3/uL (0.0-0.2); %Basophils 1.1 % (0.0-1.0); %Eosinophils 1.7 % (0.0-10.0); %Lymphocytes 28.3 % (21.0-51.0); %Monocytes 7.8 % (0.0-10.0); %Neutrophils 60.5 % (42.0-75.0); Hematocrit 37.5 % (36.0-47.0); Hemoglobin 11.9 g/dL (12.0-16.0); Mean Corpuscular HGB CONC 31.7 g/dL (32.0-36.0); Mean Corpuscular Hemoglobin 32.2 pg (27.0-31.0); Mean Corpuscular Volume 101.4 fL (78.0-98.0); Mean Platelet Volume 10.5 fL (7.4-10.4); Platelet Count 196 10x3/uL (130-400); RBC Distribution Width 14.2 % (11.5-14.5)
[2024-05-11 12:22] LABS: INR-International Normal Ratio 1.5; Prothrombin Time 18.4 sec (12.0-14.7)
[2024-05-11 12:25] LABS: Anion Gap 11 mmol/L (10-20); BUN (Urea Nitrogen) 16 mg/dL (9.8-20.1); Calc. Creatinine Clearance 0 mL/min (70-130); Calcium 8.6 mg/dL (7.8-10.44); Carbon Dioxide 26 mmol/L (23-31); Chloride 109 mmol/L (98-107); Estimated GFR 54; Glucose 78 mg/dL (83-110); Potassium 3.8 mmol/L (3.5-5.1); Sodium 142 mmol/L (136-145)
== END 2024-05-11 10:18 | disposition home or self-care (01) ==
LOC: LABBT 10:17
PROVIDERS: ATTEND Orthopaedic Surgery Hand Surgery
DX: Z01.818 Encounter for other preprocedural examination (principal); M18.12 Unilateral primary osteoarthritis of first carpometacarpal joint, left hand; M65.342 Trigger finger, left ring finger; M65.332 Trigger finger, left middle finger
CPT/HCPCS: 80048; 85025; 85610; 87081; 93005; 93010

== ENCOUNTER 2024-05-16 13:20 | Inpatient (IN) | payer MEDICARE, BC ==
[2024-05-16] MEDS ORDERED: Albuterol 2.5 MG (3 mL) NEB NEB PRN (16:20)
[2024-05-17 17:01] VITALS: BMI 32.0
[2024-05-17] MEDS: cloNIDine 0.1 MG TAB ONE (21:11)
[2024-05-17] MEDS: Aspirin 81 mg Enteric Coated Tablet ONE ×3 (21:11→21:14)
[2024-05-17] MEDS: busPIRone HCl 5 MG TAB ONE (21:11)
[2024-05-17] MEDS: Apixaban 2.5 MG TAB ONE (21:11)
[2024-05-17] MEDS: HYDROcodone/Acetaminophen 5/325 mg Tablet ONE ×6 (21:11→22:30)
[2024-05-17] MEDS: Morphine 4 MG/ML VIAL ONE ×7 (21:11→21:14)
[2024-05-17] MEDS: traMADol HCl 50 MG TAB ONE ×2 (21:12→21:14)
[2024-05-17] MEDS: Famotidine 20 MG TAB ONE (21:12)
[2024-05-17] MEDS: DULoxetine 60 MG CAP ONE (21:12)
[2024-05-17] MEDS: busPIRone HCl 10 MG TAB ONE (21:12)
[2024-05-17] MEDS: Dronedarone HCl 400 MG TAB ONE (21:12)
[2024-05-17] MEDS ORDERED: Famotidine 20 MG TAB PO PRN (21:22)
[2024-05-17] MEDS: Dronedarone HCl 400 MG TAB PO SCH (21:34)
[2024-05-17] MEDS: Aspirin Chewable 81 MG TAB PO SCH (21:34)
[2024-05-17] MEDS: Apixaban 5 MG TAB PO SCH (21:34)
[2024-05-17] MEDS: Ferrous Sulfate 325 MG TAB PO SCH (21:35)
[2024-05-17] MEDS: Levothyroxine Sodium 112 MCG TAB PO SCH (21:35)
[2024-05-17] MEDS: busPIRone HCl 5 MG TAB PO SCH (21:35)
[2024-05-17] MEDS: traZODone HCl 50 MG TAB PO SCH (21:35)
[2024-05-17] MEDS: pyridOXINE 50 MG (B6) TAB PO SCH (21:35)
[2024-05-17] MEDS: Cyanocobalamin (Vitamin B-12) 1,000 MCG TAB PO SCH (21:36)
[2024-05-17] MEDS: Cholecalciferol 1,000 UNITS (25 MCG) TAB PO SCH (21:36)
[2024-05-17] MEDS: DULoxetine 60 MG CAP PO SCH (21:36)
[2024-05-18] MEDS: Morphine 4 MG/ML VIAL ONE ×3 (00:42→05:33)
[2024-05-18] MEDS: HYDROcodone/Acetaminophen 5/325 mg Tablet ONE ×2 (04:06→04:09)
[2024-05-18] MEDS: cloNIDine 0.1 MG TAB PO SCH (08:51)
[2024-05-18] MEDS: Aspirin 81 mg Enteric Coated Tablet ONE (08:55)
[2024-05-18 12:45] VITALS: BP 118/75; TEMP 98
[2024-05-18] MEDS: Ibuprofen 200 MG TAB PO PRN (12:46)
[2024-05-18] MEDS ORDERED: Gabapentin 100 MG CAP PO SCH (21:00)
== END 2024-05-18 12:55 | disposition home or self-care (01) | DRG 948 ==
LOC: SURG B 13:20
PROVIDERS: ADMIT Orthopaedic Surgery Hand Surgery; ATTEND Orthopaedic Surgery Hand Surgery
DX: G89.18 Other acute postprocedural pain (principal); I50.32 Chronic diastolic (congestive) heart failure; M79.645 Pain in left finger(s); Z95.1 Presence of aortocoronary bypass graft; D64.9 Anemia, unspecified; Z95.0 Presence of cardiac pacemaker; E11.9 Type 2 diabetes mellitus without complications; K21.9 Gastro-esophageal reflux disease without esophagitis; E03.9 Hypothyroidism, unspecified; I11.0 Hypertensive heart disease with heart failure; I48.91 Unspecified atrial fibrillation
CPT/HCPCS: 36416; A4314; A6223; C1713; C1894; J1100; J1956; J2250; J2272; J2405; J2704; J2795; J3010; J3490

== ENCOUNTER 2024-11-01 12:57 | Outpatient (CLI) | payer MEDICARE, BC | END 2024-11-01 12:58 | disposition home or self-care (01) | LOC: CT 12:57 | PROVIDERS: ATTEND Student in an Organized Health Care Education/Training Program | DX: S46.011A Strain of muscle(s) and tendon(s) of the rotator cuff of right shoulder, initial encounter (principal); M19.011 Primary osteoarthritis, right shoulder ==

== ENCOUNTER 2025-06-05 04:44 | Observation (INO) | payer MEDICARE, BC ==
[2025-06-05] MEDS ORDERED: Glucagon 1 MG/ML KIT IM PRN (08:31)
[2025-06-05] MEDS ORDERED: Dextrose 50% Abboject 50 ML SYRINGE SLOW IVP PRN (08:31)
[2025-06-05] MEDS: HYDROcodone/Acetaminophen 7.5/325 mg Tablet PO PRN (08:55)
[2025-06-05 09:33] VITALS: BMI 33.0
[2025-06-05] MEDS: NIFEdipine XL 30 MG ER.TAB PO SCH (11:26)
[2025-06-05] MEDS: Senokot S 8.6-50 MG TAB PO SCH (11:26)
[2025-06-05] MEDS: Rosuvastatin 10 MG TAB PO SCH (11:26)
[2025-06-05] MEDS: Metoprolol Succinate XL 25 MG ER.TAB PO SCH (11:27)
[2025-06-05] MEDS: Enoxaparin 80 MG (0.8 mL) SYRINGE SC SCH ×2 (11:29→20:50)
[2025-06-05] MEDS: Ondansetron PF 4 MG/2 ML Vial IVP PRN (14:00)
[2025-06-05] MEDS: pyridOXINE 50 MG (B6) TAB PO SCH (20:49)
[2025-06-05] MEDS: Aspirin Chewable 81 MG TAB PO SCH (20:50)
[2025-06-06 04:45] LABS: #Basophils 0.06 10x3/uL (0.0-0.2); #Eosinophils 0.05 10x3/uL (0.0-0.7); #Monocytes 0.55 10x3/uL (0.11-0.59); #Neutrophils 3.01 10x3/uL (1.40-6.50); %Basophils 1.0 % (0.0-1.0); %Eosinophils 0.9 % (0.0-10.0); %Lymphocytes 36.9 % (21.0-51.0); %Monocytes 9.4 % (0.0-10.0); %Neutrophils 51.5 % (42.0-75.0); Hematocrit 37.3 % (36.0-47.0); Hemoglobin 11.0 g/dL (12.0-16.0); Mean Corpuscular Hemoglobin 28.2 pg (27.0-31.0); Mean Corpuscular Volume 95.6 fL (78.0-98.0); Platelet Count 167 10x3/uL (130-400); Red Blood Cell (RBC) Count 3.90 mill/uL (4.20-5.40); White Blood Cell (WBC) Count 5.85 10x3/uL (4.8-10.8)
[2025-06-06 05:01] LABS: Anion Gap 12 mmol/L (10-20); BUN (Urea Nitrogen) 12 mg/dL (9.8-20.1); Calc. Creatinine Clearance 89 mL/min (70-130); Calcium 8.5 mg/dL (7.8-10.44); Carbon Dioxide 22 mmol/L (23-31); Chloride 109 mmol/L (98-107); Glucose 73 mg/dL (83-110); Magnesium 1.9 mg/dL (1.6-2.6); Potassium 4.2 mmol/L (3.5-5.1); Sodium 139 mmol/L (136-145)
[2025-06-06 10:28] VITALS: BMI 33.0
[2025-06-06] MEDS: Acetaminophen 325 MG TAB PO PRN (12:28)
[2025-06-06 16:15] VITALS: BP 118/70; TEMP 97.5
== END 2025-06-06 18:43 | disposition home or self-care (01) ==
LOC: T4-B 06:39 → 2SE 09:24
PROVIDERS: ADMIT Internal Medicine; ATTEND Internal Medicine
DX: H81.10 Benign paroxysmal vertigo, unspecified ear (principal); E43 Unspecified severe protein-calorie malnutrition; I48.0 Paroxysmal atrial fibrillation; I10 Essential (primary) hypertension; I25.10 Atherosclerotic heart disease of native coronary artery without angina pectoris; E11.9 Type 2 diabetes mellitus without complications; E03.9 Hypothyroidism, unspecified; R11.2 Nausea with vomiting, unspecified; Z95.0 Presence of cardiac pacemaker; Z98.84 Bariatric surgery status; Z95.5 Presence of coronary angioplasty implant and graft; Z88.0 Allergy status to penicillin; Z88.1 Allergy status to other antibiotic agents; Z88.5 Allergy status to narcotic agent; Z88.6 Allergy status to analgesic agent; Z88.8 Allergy status to other drugs, medicaments and biological substances; Z79.899 Other long term (current) drug therapy
CPT/HCPCS: 80048; 82962 ×2; 83735; 84100; 84484; 85025; 93306; 93880; J1650 ×2; J2405; J7030; 36415; 36416